=== PATIENT | female | born 1960 | race Caucasian/White ===

== ENCOUNTER 2019-07-15 10:30 | Emergency (ER) | payer MEDICARE, OTHER ==
[~2019-07-15] VITALS: Ht 165.1 cm; Wt 61.2 kg
--- OUTSIDE RECORDS SUMMARY | ~2019-07-15 | XMS | Clinical Summary ---
Demographics + + + | Address | [address] | | | [place] [address] | + + + | Home Phone | | + + + | Preferred Language | Unknown | + + + | Marital Status | Legally | + + + | Voodoo Affiliation | [id number] | + + + | Race | Unknown | + + + | Ethnic Group | Unknown | + + + Author + + + | Author | [facility] (Historical as of | | | 03-14-19) | + + + | Organization | [facility] (Historical as of | | | 03-14-19) | + + + | Address | Unknown | + + + | Phone | Unavailable | + + + Support + + + + + | Name | Relationship | Address | Phone | + + + + + | Shanna Salinas | ECON | [address] | | | | | [place] | | | | | [address] | | + + + + + | Kurtis Abbasi | ECON | Unknown | | + + + + + Care Team Providers + +------+ + | Care Deputy Court Name | Role | Phone | + +------+ + | Bridger Esposito MD | PP | | + +------+ + Allergies + + + + + + | Active Allergy | Reactions | Severity | Noted | Comments | | | | | Date | | + + + + + + | Morphine | Itching | Medium | 10/05/19 | IV Morphine only. | | | | | 18 | PO OK | + + + + + + Current Medications + + +-------+---------+------+------+-------+ | Prescription | Sig. | Disp. | Refills | Star | End | Statu | | | | | | t | Date | s | | | | | | Date | | | + + +-------+---------+------+------+-------+ | zolpidem (AMBIEN) | Take 10 mg by mouth | | | | | Activ | | 10 MG tablet | daily. | | | | | e | + + +-------+---------+------+------+-------+ | FLUOXETINE HCL PO | Take 20 mg by mouth. | | | | | Activ | | | 1 tab QAM and 2 | | | | | e | | | tabs QPM | | | | | | + + +-------+---------+------+------+-------+ | gabapentin | Take 100 mg by | | | | | Activ | | (NEURONTIN) 100 MG | mouth. Conventional | | | | | e | | capsule | as directed 2 caps | | | | | | | | QAM | | | | | | + + +-------+---------+------+------+-------+ | gabapentin | Take 400 mg by mouth | | | | | Activ | | (NEURONTIN) 400 MG | 3 (three) times | | | | | e | | capsule | daily. | | | | | | + + +-------+---------+------+------+-------+ | sumatriptan | Take 100 mg by mouth | | | | | Activ | | (IMITREX) 100 MG | daily as needed for | | | | | e | | tabletIndications: | Migraine. Once a | | | | | | | Headache | day prn headache | | | | | | + + +-------+---------+------+------+-------+ | LEVOTHYROXINE | Take 125 mcg by | | | | | Activ | | SODIUM PO | mouth. As directed 5 | | | | | e | | | days a week | | | | | | + + +-------+---------+------+------+-------+ | LEVOTHYROXINE | Take 125 mcg by | | | | | Activ | | SODIUM PO | mouth. As directed 2 | | | | | e | | | days a week | | | | | | + + +-------+---------+------+------+-------+ | LIOTHYRONINE | Take 25 mcg by mouth | | | | | Activ | | SODIUM PO | daily. | | | | | e | + + +-------+---------+------+------+-------+ | MORPHINE SULFATE | Take 30 mg by mouth | | | | | Activ | | ER PO | 2 (two) times daily. | | | | | e | + + +-------+---------+------+------+-------+ | MORPHINE SULFATE | Take 15 mg by mouth | | | | | Activ | | ER PO | 2 (two) times daily. | | | | | e | + + +-------+---------+------+------+-------+ | | Take by mouth. | | | | | Activ | | oxyCODONE-acetaminop | | | | | | e | | hen (PERCOCET) | | | | | | | | 10-325 MG per tablet | | | | | | | + + +-------+---------+------+------+-------+ | PROMETHAZINE HCL | Take 25 mg by mouth | | | | | Activ | | POIndications: | every 6 (six) hours | | | | | e | | nausea | as needed. | | | | | | + + +-------+---------+------+------+-------+ Active Problems + + + | Problem | Noted Date | + + + | Incidental pulmonary nodule, greater than or equal to 8mm | 05/16/2017 | + + + | Personal history of tobacco use, presenting hazards to health | 05/16/2017 | + + + | History of breast cancer | 05/16/2017 | + + + Family History + + +------+ + | Medical History | Relation | Name | Comments | + + +------+ + | Cancer | Father | | lung | + + +------+ + | Cancer | Mother | | Breast | + + +------+ + + +------+ + + | Relation | Name | Status | Comments | + +------+ + + | Father | | | | + +------+ + + | Mother | | | | + +------+ + + Social History + +-------+ +--------+------+ | Tobacco Use | Types | Packs/Day | Years | Date | | | | | Used | | + +-------+ +--------+------+ | Current Every Day | | 0.5 | 30 | | | Smoker | | | | | + +-------+ +--------+------+ + +---+---+---+ | Smokeless Tobacco: | | | | | Never Used | | | | + +---+---+---+ + + +---------+ + | Alcohol Use | Drinks/We | oz/Week | Comments | | | ek | | | + + +---------+ + | No | | | | + + +---------+ + + + + | Sex Assigned at | Date Recorded | | | | + + + | Not on file | | + + + Last Filed Vital Signs + + + + | Vital Sign | Reading | Time Taken | + + + + | Blood Pressure | 114/79 | 10/04/2017 3:18 PM PST | + + + + | Pulse | 70 | 10/04/2017 3:18 PM PST | + + + + | Temperature | 36.8 C (98.3 F) | 06/11/2017 4:33 PM PST | + + + + | Respiratory Rate | 12 | 06/11/2017 4:33 PM PST | + + + + | Oxygen Saturation | 99% | 10/04/2017 3:18 PM PST | + + + + | Inhaled Oxygen | - | - | | Concentration | | | + + + + | Weight | 68 kg (150 lb) | 10/04/2017 3:18 PM PST | + + + + | Height | 165.1 cm (5' 5") | 06/11/2017 4:33 PM PST | + + + + | Body Mass Index | 24.96 | 10/04/2017 3:18 PM PST | + + + + Plan of Treatment Not on file Results Not on filefrom Last 3 Months Insurance + +--------+ +------+-------+ + | Payer | Benefi | Subscriber | Type | Phone | Address | | | t Plan | ID | | | | | | / | | | | | | | Group | | | | | + +--------+ +------+-------+ + | MEDICARE | MEDICA | [id number] | | | [address] | | | RE | | | | [place] [address] | | | IP-OP | | | | | + +--------+ +------+-------+ + | MEDICAID | MEDICA | [id number] | | | [address] | | | ID | | | | [place], [place] | | | [place] | | | | [address] | + +--------+ +------+-------+ + + +--------+ +--------+ + + | Guarantor Name | Accoun | Relation to | Date | Phone | Billing Address | | | t Type | Patient | of | | | | | | | | | | + +--------+ +--------+ + + | DIONY SALINAS | Person | Self [birth year] Home: | [address] | | | [place] | | 1960 | [phone] | [place] [address] | | | fernando | | | [phone] | | + +--------+ +--------+ + +
--- OUTSIDE RECORDS SUMMARY | ~2019-07-15 | XMS | Encounter Summary ---
Demographics + + + | Address | [address] | | | [place] [address] | + + + | Home Phone | | + + + | Preferred Language | Unknown | + + + | Marital Status | Single | + + + | Baptism Affiliation | Unknown | + + + | Race | Unknown | + + + | Ethnic Group | Unknown | + + + Author + + + | Author | [facility] | | | and Edana | + + + | Organization | [facility] | | | and Edana [...] Team Providers + +------+ + | Care Religious Healer Name | Role | Phone | + +------+ + | Bridger Esposito MD | PCP | | + +------+ + Reason for Referral Diagnostic/Screening (Routine) +--------+--------+ + + + + | Status | Reason | Specialty | Diagnoses / | Referred By | Referred To | | | | | Procedures | Contact | Contact | +--------+--------+ + + + + | Closed | | Radiology | Diagnoses | Eliazar, | c [facility] [address] | | | | | Incidental | Aaliyah | [address] | | | | | pulmonary | MD Cristina | [address] | | | | | nodule, | [address] | [address] | | | | | greater than | [address] | [place] | | | | | or equal to | [address] | [address] | | | | | 8mm | [place], [place] | Phone: | | | | | Procedures | [address] | [phone] | | | | | CT Chest wo | Phone: | Fax: | | | | | Contrast | [phone] | [phone] | | | | | | Fax: | | | | | | | [phone] | | +--------+--------+ + + + + [...] | greater than | [address] | [place], [place] | | | | | or equal to | [address] | [address] | | | | | 8mm | [place], [place] | Phone: | | | | | Procedures | [address] | [phone] | | | | | CT Chest wo | Phone: | Fax: | | | | | Contrast | [phone] | [phone] | | | | | | Fax: | | | | | | | [phone] | | +--------+--------+ + + + + Encounter Details +--------+ + + + + | Date | Type | Department | Care Team | Description | +--------+ + + + + | 06/30/ | Hospital | [facility] | Eliazar, | Incidental pulmonary | | 2019 | Encounter | [facility] [address] | Aaliyah Evans, | nodule, greater | | | | [address] | [address] | than or equal to 8mm | | | | [place] | [place], | | | | | [address] | [place] [address] | | | | | [phone] | [phone] | | | | | | | [...]
--- OUTSIDE RECORDS SUMMARY | ~2019-07-15 | XMS | Encounter Summary ---
Demographics + + + | Address | [address] | | | [place] [address] | + + + | Home Phone | | + + + | Preferred Language | Unknown | + + + | Marital Status | Single | + + + | Tenriism Affiliation | Unknown | + + + | Race | Unknown | + + + | Ethnic Group | Unknown | + + + Author + + + | Author | [facility] | | | and Edana | + + + | Organization | [facility] | | | and [...] Team Providers + +------+ + | Care Master Ocean Yacht Name | Role | Phone | + +------+ + | Gaetano Candelaria MD | PCP | | + +------+ + Encounter Details +--------+ + + + + | Date | Type | Department | Care Team | Description | +--------+ + + + + | 06/05/ | Hospital | [facility] | Conversion | Incidental pulmonary | | 2017 | Encounter | [facility] | Transaction, | nodule, greater | | | | MEDICINE 9[address] | Provider Unknown | than or equal to 8mm | | | | [address] | [phone] | | | | | [place] | | | | | | [address] | Aaliyah Perea | | | | | [phone] | MD Cristina [address] | | | | | | [address] | | | | | | [place] [address] | | | | | | [phone] | | | | | | | [...] | + +--------+ + + + | PET CT SKULL BASE TO | Routin | 06/05/2017 | | Results for this | | MID THIGH | e | 2:25 PM | | procedure are in the | | | | PST | | results section. | + +--------+ + + + documented in this encounter Results PET CT Skull Base To Mid Thigh (06/05/2017 2:25 PM PST) + + | Specimen | + + | | + + + + + | Impressions | Performed At | + + + | 1. The previously noted bilateral pulmonary findings appear | | | unchanged. These areas demonstrate minimal metabolic activity and | | | feces SUVmax from 1.7 to 3.0. Follow-up chest CT examination in 3 | | | months recommended. 2. No enlarged hypermetabolic lymph nodes noted | | | within the neck, chest, abdomen and pelvis. 3. Moderate pancreatic | | | ductal dilatation is of uncertain etiology. Recommend correlation | | | with MRI of the abdomen with and without contrast with pancreatic | | | protocol and with MRCP for definitive assessment. Electronically | | | signed by Alexandre Vinson MD on 06/05/2017 2:42 PM | | + + + + + + | Narrative | Performed At | + + + | DIONY SALINAS 1960 06/05/2017 2:[address] TUMOR | | | LOCALIZATION INITIAL - [place] HISTORY: Incidental pulmonary | | | nodule, greater than or equal to 8 mm. Breast cancer. COMPARISON: | | | Chest CT examination 05/31/2017. TECHNIQUE: Serum blood sugar 84 | | | mg/dL. Fused PET/CT scans were obtained from the skull base through | | | the thighs at 60 minutes post injection of 12.5 millicuries F18 | | | fluorodeoxyglucose. CT images are for localization only, and not for | | | diagnostic purposes. FINDINGS: Within the chest, -Cluster of | | | groundglass opacities in the right upper lung appear essentially | | | unchanged. SUVmax 1.7. -Elongated nodular opacity in the left lung | | | apex anteriorly on series 4, image 53 appears unchanged. SUVmax 2.3. | | | -Left anterior upper lobe demonstrates triangular peripheral opacity | | | on series 4, image 73, unchanged. SUVmax 3.0. -Left upper lobe nodule | | | measuring 3 mm in size on series 4, image 71 is too small to | | | accurately characterize and the current modality. No enlarged | | | hypermetabolic mediastinal or hilar lymph nodes seen. No cardiomegaly | | | or pericardial effusion. Aorta does not appear aneurysmal. Within | | | the neck, no enlarged hypermetabolic lymph nodes or foci of suspicious | | | metabolic hyperactivity seen. Within the abdomen and pelvis, no | | | definite evidence of a suspicious liver lesion seen within limits of | | | the modality. Hepatic steatosis. The pancreas demonstrates moderate | | | dilatation of the pancreatic duct, uncertain etiology. Spleen, adrenal | | | glands and kidneys appear unremarkable. No bowel obstruction or | | | ileus seen. No enlarged hypermetabolic lymph nodes identified. Aorta | | | does not appear aneurysmal. Within the osseous structures, no foci | | | of suspicious metabolic hyperactivity seen to suggest metastatic | | | disease. | | + + + + + | Procedure Note | + + | Marcus, Rad Conversion - 03/11/2019 10:55 PM PDT DIONY SALINAS 2:25 | | PMPET CT TUMOR LOCALIZATION INITIAL - [place] HISTORY: Incidental pulmonary nodule, | | greater than or equal to 8 mm. Breast cancer. COMPARISON: Chest CT examination | | 05/31/2017. TECHNIQUE:Serum blood sugar 84 mg/dL. Fused PET/CT scans were obtained from | | the skull base through the thighs at 60 minutes post injection of 12.5 millicuries F18 | | fluorodeoxyglucose. CT images are for localization only, and not for diagnostic | | purposes. FINDINGS:Within the chest,-Cluster of groundglass opacities in the right upper | | lung appear essentially unchanged. SUVmax 1.7.-Elongated nodular opacity in the left | | lung apex anteriorly on series 4, image 53 appears unchanged. SUVmax 2.3.-Left anterior | | upper lobe demonstrates triangular peripheral opacity on series 4, image 73, unchanged. | | SUVmax 3.0.-Left upper lobe nodule measuring 3 mm in size on series 4, image 71 is too | | small to accurately characterize and the current modality. No enlarged hypermetabolic | | mediastinal or hilar lymph nodes seen. No cardiomegaly or pericardial effusion. Aorta | | does not appear aneurysmal. Within the neck, no enlarged hypermetabolic lymph nodes or | | foci of suspicious metabolic hyperactivity seen. Within the abdomen and pelvis, no | | definite evidence of a suspicious liver lesion seen within limits of the modality. | | Hepatic steatosis. The pancreas demonstrates moderate dilatation of the pancreatic duct, | | uncertain etiology. Spleen, adrenal glands and kidneys appear unremarkable. No bowel | | obstruction or ileus seen. No enlarged hypermetabolic lymph nodes identified. Aorta does | | not appear aneurysmal. Within the osseous structures, no foci of suspicious metabolic | | hyperactivity seen to suggest metastatic disease. IMPRESSION: 1. The previously noted | | bilateral pulmonary findings appear unchanged. These areas demonstrate minimal metabolic | | activity and feces SUVmax from 1.7 to 3.0. Follow-up chest CT examination in 3 months | | recommended.2. No enlarged hypermetabolic lymph nodes noted within the neck, chest, | | abdomen and pelvis.3. Moderate pancreatic ductal dilatation is of uncertain etiology. | | Recommend correlation with MRI of the abdomen with and without contrast with pancreatic | | protocol and with MRCP for definitive assessment. | | | | | |IMPRESSION: | |1. The previously noted bilateral pulmonary findings appear unchanged. These areas demonst rate minimal metabolic activity and feces SUVmax from 1.7 to 3.0. Follow-up chest CT examina tion in 3 months recommended. | |2. No enlarged hypermetabolic lymph nodes noted within the neck, chest, abdomen and pelvis . | |3. Moderate pancreatic ductal dilatation is of uncertain etiology. Recommend correlation w ith MRI of the abdomen with and without contrast with pancreatic protocol and with MRCP for definitive assessment. | | | | | + + documented in this encounter Visit Diagnoses + + | Diagnosis | + + | Incidental pulmonary nodule, greater than or equal to 8mm Solitary pulmonary nodule | + + documented in this encounter"
--- OUTSIDE RECORDS SUMMARY | ~2019-07-15 | XMS | Encounter Summary ---
Demographics + + + | Address | [address] | | | [place] [address] | + + + | Home Phone | | + + + | Preferred Language | Unknown | + + + | Marital Status | Single | + + + | Denominational Affiliation | Unknown | + + + | Race | Unknown | + + + | Ethnic Group | Unknown | + + + Author + + + | Author | [facility] | | | and Edana | + + + | Organization | [facility] | | | and Edana [...] Team Providers + +------+ + | Care Senior Systems Software Engineer Name | Role | Phone | + +------+ + | Gaetano Candelaria MD | PCP | | + +------+ + Encounter Details +--------+ + + + + | Date | Type | Department | Care Team | Description | +--------+ + + + + | 05/31/ | Hospital | [facility] | Conversion | Incidental pulmonary | | 2017 | Encounter | [facility] [address] | Transaction, | nodule, greater | | | | DM[address] | Provider Unknown | than or equal to 8mm | | | | [place] | [phone] | | | | | [address] | | | | | | [phone] | Aaliyah Perea | | | | | | MD Cristina [address] | | | | | | [address] | | | | | | [place] [address] | | | | | | [phone] | | | | | | | [...] CT CHEST WO CONTRAST | Routin | 05/31/2017 | | Results for this | | | e | 5:04 PM | | procedure are in the | | | | PDT | | results section. | + +--------+ + + + documented in this encounter Results CT Chest wo Contrast (05/31/2017 5:04 PM PDT) + + | Specimen | + + | | + + + + + | Impressions | Performed At | + + + | 1. Cluster of nodular groundglass opacities in the right upper | | | lobe. These are suspected to be inflammatory. 2. Combination of | | | elongated nodular opacity, groundglass opacities and linear opacities | | | in the left upper lobe and a triangular opacity anteriorly in the left | | | upper lobe. These are suspected to represent areas of postradiation | | | changes. 3. Left upper lobe nodule measuring 3 mm in size. 4. | | | Recommend follow-up chest CT examination in 3 months for the | | | above-mentioned findings. | | + + + + + + | Narrative | Performed At | + + + | DIONY [facility] CT CHEST WO CONTRAST HISTORY: Incidental | | | pulmonary nodule, greater than or equal to 8 mm. TECHNIQUE: CT | | | examination of the chest was performed without contrast. CT was | | | performed with automated exposure control and adjustment of the mA | | | according to patient size. COMPARISON: None. FINDINGS: Lack | | | of intravenous contrast diminishes sensitivity, especially for | | | assessment of lymphadenopathy, upper abdominal and vascular | | | structures. Lungs: -In the right upper lobe, there is a cluster | | | of 3-4 nodular groundglass opacities seen from series 4, image 51 | | | through series 4, image 67. The largest is seen on series 4, image 51 | | | measuring 7 mm in size. -The left lung apex demonstrates a | | | combination of elongated nodular opacity seen on series 4, image 35 | | | measuring 1.8 cm in length and 0.9 cm in thickness, and with further | | | groundglass components inferiorly on series 4, image 41. There appear | | | to be some reticular opacities. -The left anterior upper lobe | | | demonstrates a triangular peripheral pleural-based opacity on series | | | 4, image 91 measuring approximately 2.7 cm x 1.2 cm in size. -There | | | is a left upper lobe nodule seen in this area on series 4, image 85 | | | measuring 3 mm in size. Mild emphysematous changes seen involving | | | the upper lungs. Pleura: No pleural effusion seen. Aorta: Does | | | not appear aneurysmal Pulmonary arteries: No definite enlargement | | | seen. Lymph nodes: No enlarged mediastinal or hilar lymph nodes | | | by CT size criteria seen. Heart: No cardiomegaly or pericardial | | | effusion seen. Esophagus: Does not appear dilated. Visualized | | | thyroid: Appears unremarkable. Visualized abdominal organs: | | | Hepatic steatosis. Osseous structures: No acute or destructive | | | osseous process seen. | | + + + + + | Procedure Note | + + | Marcus, Rad Conversion - 03/11/2019 10:55 PM PDT [facility] | | HISTORY:Incidental pulmonary nodule, greater than or equal to 8 mm. TECHNIQUE:CT | | examination of the chest was performed without contrast. CT was performed with automated | | exposure control and adjustment of the mA according to patient size. COMPARISON:None. | | FINDINGS: Lack of intravenous contrast diminishes sensitivity, especially for assessment | | of lymphadenopathy, upper abdominal and vascular structures. Lungs:-In the right upper | | lobe, there is a cluster of 3-4 nodular groundglass opacities seen from series 4, image | | 51 through series 4, image 67. The largest is seen on series 4, image 51 measuring 7 mm | | in size.-The left lung apex demonstrates a combination of elongated nodular opacity seen | | on series 4, image 35 measuring 1.8 cm in length and 0.9 cm in thickness, and with | | further groundglass components inferiorly on series 4, image 41. There appear to be some | | reticular opacities.-The left anterior upper lobe demonstrates a triangular peripheral | | pleural-based opacity on series 4, image 91 measuring approximately 2.7 cm x 1.2 cm in | | size.-There is a left upper lobe nodule seen in this area on series 4, image 85 | | measuring 3 mm in size. Mild emphysematous changes seen involving the upper lungs. | | Pleura: No pleural effusion seen. Aorta: Does not appear aneurysmal Pulmonary arteries: | | No definite enlargement seen. Lymph nodes: No enlarged mediastinal or hilar lymph nodes | | by CT size criteria seen. Heart: No cardiomegaly or pericardial effusion seen. | | Esophagus: Does not appear dilated. Visualized thyroid: Appears unremarkable. Visualized | | abdominal organs: Hepatic steatosis. Osseous structures: No acute or destructive | | osseous process seen. IMPRESSION: 1. Cluster of nodular groundglass opacities in the | | right upper lobe. These are suspected to be inflammatory.2. Combination of elongated | | nodular opacity, groundglass opacities and linear opacities in the left upper lobe and a | | triangular opacity anteriorly in the left upper lobe. These are suspected to represent | | areas of postradiation changes.3. Left upper lobe nodule measuring 3 mm in size.4. | | Recommend follow-up chest CT examination in 3 months for the above-mentioned findings. | | | | | |Pulmonary arteries: No definite enlargement seen. | | | |Lymph nodes: No enlarged mediastinal or hilar lymph nodes by CT size criteria seen. | | | |Heart: No cardiomegaly or pericardial effusion seen. | | | |Esophagus: Does not appear dilated. | | | |Visualized thyroid: Appears unremarkable. | | | |Visualized abdominal organs: Hepatic steatosis. | | | |Osseous structures: No acute or destructive osseous process seen. | | | | | |IMPRESSION: | |1. Cluster of nodular groundglass opacities in the right upper lobe. These are suspected t o be inflammatory. | |2. Combination of elongated nodular opacity, groundglass opacities and linear opacities in the left upper lobe and a triangular opacity anteriorly in the left upper lobe. These are s uspected to represent areas of postradiation changes. | |3. Left upper lobe nodule measuring 3 mm in size. | |4. Recommend follow-up chest CT examination in 3 months for the above-mentioned findings. | | | | | + + documented in this encounter Visit Diagnoses + + | Diagnosis | + + | Incidental pulmonary nodule, greater than or equal to 8mm Solitary pulmonary nodule | + + documented in this encounter"
--- OUTSIDE RECORDS SUMMARY | ~2019-07-15 | XMS | Clinical Summary ---
Demographics + + + | Address | [address] | | | [place] [address] | + + + | Home Phone | | + + + | Preferred Language | Unknown | + + + | Marital Status | Legally | + + + | Buddhism Affiliation | 1013 | + + + | Race | Unknown | + + + | Ethnic Group | Unknown | + + + Author + + + | Author | [facility] (Historical as of | | | 03-14-19) | + + + | Organization | [facility] (Historical as of | | | 03-14-19) [...] [place] | | | | | [address] | | + + + + + | Kurtis Abbasi | ECON | Unknown | | + + + + + Care Team Providers + +------+ + | Care Hospice Team Lead Name | Role | Phone | + [...] +------+-------+ + | MEDICARE | MEDICA | [id number] | | | [address] | | | RE | | | | [place] [address] | | | IP-OP | | | | | + +--------+ +------+-------+ + | MEDICAID | MEDICA | [id number] | | | [address] | | | ID | | | | [place], [place] | | | [place] | | | | [address] | + +--------+ +------+-------+ + + +--------+ +--------+ + + | Guarantor Name | Accoun | Relation to | Date | Phone | Billing Address | | | t Type | Patient | of | | | | | | | | | | + +--------+ +--------+ + + | DIONY SALINAS | Person | Self | [birth year] | Home: | [address] | | | [place] | | 1960 | [phone] | [place] [address] | | | [place] | | | [phone] | | + +--------+ +--------+ + +
--- OUTSIDE RECORDS SUMMARY | ~2019-07-15 | XMS | Clinical Summary ---
Demographics + + + | Address | [address] | | | [place] [address] | + + + | Home Phone | | + + + | Preferred Language | Unknown | + + + | Marital Status | Single | + + + | Oriental Orthodox Affiliation | Unknown | + + + | Race | Unknown | + + + | Ethnic Group | Unknown | + + + Author + + + | Author | [facility] | | | and Edana | + + + | Organization | [facility] | | | and Edana | [...] Team Providers + +------+ + | Care Delivery Driver Name | Role | Phone | + +------+ + | Bridger Esposito MD | PCP | | + +------+ + Allergies + [...] | + + + + + + Medications + + + +---------+------+------+-------+ | Medication | Sig | Dispensed | Refills | Star | End | Statu | | | | | | t | Date | s | | | | | | Date | | | + + + +---------+------+------+-------+ | gabapentin | Take 400 mg by mouth | | 0 | | | Activ | | (NEURONTIN) 400 mg | 3 times daily. | | | | | e | | capsule | | | | | | | + + + +---------+------+------+-------+ | | Take by mouth. | | 0 | | | Activ | | oxyCODONE-acetaminop | | | | | | e | | hen (PERCOCET) | | | | | | | | 10-325 mg per tablet | | | | | | | + + + +---------+------+------+-------+ | SUMAtriptan | Take 100 mg by mouth | | 0 | | | Activ | | (IMITREX) 100 mg | Daily as needed for | | | | | e | | tablet | Migraine. Once a | | | | | | | | day prn headache | | | | | | + + + +---------+------+------+-------+ | FLUOXETINE HCL PO | Take 20 mg by mouth. | | 0 | | | Activ | | | 1 tab QAM and 2 | | | | | e | | | tabs QPM | | | | | | + + + +---------+------+------+-------+ | LEVOTHYROXINE | Take 125 mcg by | | 0 | | | Activ | | SODIUM PO | mouth. As directed 5 | | | | | e | | | days a week | | | | | | + + + +---------+------+------+-------+ | MORPHINE SULFATE | Take 15 mg by mouth | | 0 | | | Activ | | ER PO | 3 times daily. | | | | | e | + + + +---------+------+------+-------+ | PROMETHAZINE HCL | Take 25 mg by mouth | | 0 | | | Activ | | PO | every 6 hours as | | | | | e | | | needed. | | | | | | + + + +---------+------+------+-------+ | gabapentin | Take 100 mg by | | 0 | | 12/0 | Disco | | (NEURONTIN) 100 mg | mouth. Conventional | | | | 3/20 | ntinu | | capsule | as directed 2 caps | | | | 19 | ed | | | QAM | | | | | (Ther | | | | | | | | apy | | | | | | | | compl | | | | | | | | eted) | + + + +---------+------+------+-------+ | zolpidem (AMBIEN) | Take 10 mg by mouth | | 0 | | 12/0 | Disco | | 10 mg tablet | Daily. | | | | 3/20 | ntinu | | | | | | | 19 | ed | | | | | | | | (Ther | | | | | | | | apy | | | | | | | | compl | | | | | | | | eted) | + + + +---------+------+------+-------+ | LEVOTHYROXINE | Take 125 mcg by | | 0 | | 12/0 | Disco | | SODIUM PO | mouth. As directed 2 | | | | 3/20 | ntinu | | | days a week | | | | 19 | ed | | | | | | | | (Ther | | | | | | | | apy | | | | | | | | compl | | | | | | | | eted) | + + + +---------+------+------+-------+ | LIOTHYRONINE | Take 25 mcg by mouth | | 0 | | 12/0 | Disco | | SODIUM PO | Daily. | | | | 3/20 | ntinu | | | | | | | 19 | ed | | | | | | | | (Ther | | | | | | | | apy | | | | | | | | compl | | | | | | | | eted) | + + + +---------+------+------+-------+ | MORPHINE SULFATE | Take 30 mg by mouth | | 0 | | 12/0 | Disco | | ER PO | 2 times daily. | | | | 3/20 | ntinu | | | | | | | 19 | ed | | | | | | | | (Ther | | | | | | | | apy | | | | | | | | compl | | | | | | | | eted) | + + + +---------+------+------+-------+ Active Problems + + + | Problem | Noted Date | + + + | History of breast cancer | 05/16/2017 | + + + | Incidental pulmonary nodule, greater than or equal to 8mm | 05/16/2017 | + + + | Personal history of tobacco use, presenting hazards to health | 05/16/2017 | + + + | Bilateral carpal tunnel syndrome - moderate on the rigth and mild | 04/05/2014 | | on the left | | + + + Encounters +--------+ + + + + | Date | Type | Specialty | Care Team | Description | +--------+ + + + + | 06/30/ | Office | Pulmonology | Eliazar, | Incidental pulmonary | | 2019 | Visit | | Aaliyah Evans, | nodule, greater | | | | | MD | than or equal to 8mm | | | | | | (Primary Dx); | | | | | | History of breast | | | | | | cancer; Personal | | | | | | history of tobacco | | | | | | use, presenting | | | | | | hazards to health | +--------+ + + + + | 06/30/ | Hospital | Radiology | Eliazar, | Incidental pulmonary | | 2018 | Encounter | | Aaliyah Evans, | nodule, greater | | | | | MD | than or equal to 8mm | +--------+ + + + + from Last 3 Months Immunizations + + + + | Name | Administration Dates | Next Due | + + + + | INFLUENZA PF 4Y OR | 06/19/2019 | | | >,QUAD DERIVED FROM | | | | TISS-CULT | | | + + + + Family History + + [...] | | + +------+ + + | Father [...] recent travel history available. | + + Last Filed Vital Signs + [...] | Respiratory Rate | 12 | 06/11/2017 4:37 PM | | | [...] | 165.1 cm (5' 5") | 06/11/2017 4:37 PM | | | | | PST | | + + + + + | Body Mass Index | 22.63 | 06/11/2017 4:37 PM | | | | | PST | | + + + + + Plan of Treatment + + + + + | Health Maintenance | Due Date | Last Done | Comments | + + + + + | Hepatitis C | | | | | Screening | 2 | | | + + + + + | Vaccine: | | | | | Pneumococcal 19-64 | 8 | | | | (1 of 1 - PPSV23) | | | | + + + + + | Vaccine: | | | | | Dtap/Tdap/Td (1 - | 1 | | | | Tdap) | | | | + + + + + | Cervical Cancer | | | | | Screening (Pap) | 2 | | | + + + + + | Colorectal Cancer | | | | | Screening | 2 | | | | (Colonoscopy) | | | | + + + + + | Vaccine: Zoster (1 | | | | | of 2) | 2 | | | + + + + + | Breast Cancer | | | | | Screening | 7 | | | + + + + + | Adult Annual | | | | | Wellness Visit | 9 | | | + + + + + | Vaccine: Influenza | Completed | 06/19/2019 | | + + + + + Procedures + +--------+ + + + | [...] | | + +--------+ + + + from Last [address] Chest wo Contrast (06/30/2019 2:33 [...] | | | + +---------+ + + from Last 3 Months Insurance + +--------+ +--------+ +---------+--------+ | Payer | Benefi | Subscriber | Effect | Phone | Address | Type | | | t Plan | ID | elvi | | | | | | / | | Dates | | | | | | Group | | | | | | + +--------+ +--------+ +---------+--------+ | MEDICARE | MEDICA | [id number] | 09/27/19 | [phone] | | Medica | | | RE | | 09-Pre | 5 | | re | | | PART A | | sent | | | | | | AND B | | | | | | + +--------+ +--------+ +---------+--------+ | [place]ID [place] | MEDICA | [id number] | 06/16/ | [phone] | | Medica | | | ID | | 2019-P | 2 | | id | | | [place] | | resent | | | | + +--------+ +--------+ +---------+--------+ + +--------+ +--------+ + + | Guarantor Name | Accoun | Relation to | Date | Phone | Billing Address | | | t Type | Patient | of | | | | | | | | | | + +--------+ +--------+ + + | Doiny Salinas | Person | Self | [birth year] | | [address] | | | al/Fam | | 1961 | [phone] | [place] [address] | | | [place]ernando | | | 6 (Home) | | + +--------+ +--------+ + + | Diony Salinas | Person | Self | [birth year] | | [address] | | | al/Fam | | 1961 | [phone] | [place] [address] | | | fernando | | | 6 (Home) | | + +--------+ +--------+ + + Advance Directives + + + + + | Type | Date Recorded | Patient | Explanation | | | | Event Planning Intern | | + + + + + | Power of | | | | | Classification Inspector | | | | + + + + + | Advance | | | | | Directive | | | | + + + + +
--- OUTSIDE RECORDS SUMMARY | ~2019-07-15 | XMS | Encounter Summary ---
Demographics + + + | Address | [address] | | | [place] [address] | + + + | Home Phone | | + + + | Preferred Language | Unknown | + + + | Marital Status | Single | + + + | Yarsanism Affiliation | Unknown | + + + | Race | Unknown | + + + | Ethnic Group | Unknown | + + + Author + + + | Author | [facility] | | | and Edana | + + + | Organization | [facility] | | | and Edana [...] Team Providers + +------+ + | Care Oracle Database Consultant Name | Role | Phone | + +------+ + | Bridger Esposito MD | PCP | | + +------+ + Reason for Referral Diagnostic/Screening (Routine) + +--------+ + + + + | Status | Reason | Specialty | Diagnoses / | Referred By | Referred To | | | | | Procedures | Contact | Contact | + +--------+ + + + + | Authorized | | | Diagnoses | El[facility]ar | [facility] | | | | | Incidental | Aaliyah | [facility] | | | | | pulmonary | MD Cristina | SLEEP | | | | | nodule, | [address] | DISORDERS LAB | | | | | greater than | DMITRIY FERNANDO | [address] | | | | | or equal to | EUNICE Monte[address] | [address] | | | | | 8mm | [place] | [place], [place] | | | | | Procedures | [address] | [address] | | | | | Pulmonary | Phone: | Phone: | | | | | function | [phone] | [phone] | | | | | test | Fax: | Fax: | | | | | | [phone] | [phone] | + +--------+ + + + + Encounter Details +--------+---------+ + + + | Date | Type | Department | Care Team | Description | +--------+---------+ + + + | 06/30/ | Office | [facility] | Eliazar, | Incidental pulmonary | | 2019 | Visit | PULMONOLOGY [address] | Aaliyah Evans, | nodule, greater | | | | [address] | MD [address] | than or equal to 8mm | | | | [place] | [place], | (Primary Dx); | | | | [address] | [place] [address] | History of breast | | | | [phone] | [phone] | cancer; Personal | | | | [...] PSTFormatting of this note might be d ifferent from the original. Subjective Patient ID: Diony [...] only fol lows with her Oncologist in [facility] every year. She has an occasional cough productive of clear sputum. She denies hemoptysis. She has no fevers, night sweats, chills or weight loss. She has dyspnea on exertion, but only when she is hurrying or doing more rigorous chores like va [email or web address]. She has chronic pains and has been [...] but is active at work. 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 ACTIVITIES OF DAILY LIVING: Independent without difficulty. [...] were also smokers. 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 Immanuel monteiro was raised in [place], lived in [facility] for 2 years, and previous to that, was in [facility] and for 29 years. She has no animals at home. The following elements of the patient's history were reviewed and updated as appropriate. T naylay are available elsewhere in the patient record. [...] still is in remission. Her Oncologist in [place] has retired, and so I have encouraged [...] Perea MD Pulmonary and Critical Care Medicine [facility] [address] , [place] [address] documente d in this encounter Plan of [...]
--- OUTSIDE RECORDS SUMMARY | ~2019-07-15 | XMS | Encounter Summary ---
Demographics + + + | Address | [address] | | | [place] [address] | + + + | Home Phone [...] | Organization | [facility] | | | and Edana [...] Team Providers + +------+ + | Care Management Nurse Rn Name | Role | Phone | + [...] Radiology | Diagnoses | Eliazar, | c [facility] [address] | | | | | Incidental | Aaliyah | [address] | | | | | pulmonary | MD Cristina | [address] | | | | | nodule, | [address] | [address] | | | | | greater than | DMITRIY FERNANDO | [place] | | | | | or equal to | [address] | [address] | | | | | 8mm | [place], [place] | Phone: | | | | | Procedures | [address] | [phone] | | | | | CT Chest wo | Phone: | Fax: | | | | | Contrast | [phone] | [phone] | | | | | | Fax: | | | | | | | [phone] | | +--------+--------+ + + + + [...] | greater than | DMITRIY FERNANDO | [place], [place] | | | | | or equal to | [address] | [address] | | | | | 8mm | [place], [place] | Phone: | | | | | Procedures | [address] | [phone] | | | | | CT Chest wo | Phone: | Fax: | | | | | Contrast | [phone] | [phone] | | | | | | Fax: | | | | | | | [phone] | | +--------+--------+ + + + + Encounter Details +--------+ + + + + | Date | Type | Department | Care Team | Description | +--------+ + + + + | 06/30/ | Hospital | [facility] | Eliazar, | Incidental pulmonary | | 2019 | Encounter | [facility] [address] | Aaliyah Evans, | nodule, greater | | | | DMITRIY FERNANDO [address] | [address] | than or equal to 8mm | | | | [place] | [place], | | | | | [address] | [place] [address] | | | | | [phone] | [phone] | | | | | | | [...]
--- OUTSIDE RECORDS SUMMARY | ~2019-07-15 | XMS | Encounter Summary ---
Demographics + + + | Address | [address] | | | [place] [address] | + + + | Home Phone | | + + + | Preferred Language | Unknown | + + + | Marital Status | Single | + + + | Jewish Affiliation | Unknown | + + + | Race | Unknown | + + + | Ethnic Group | Unknown | + + + Author + + + | Author | [facility] | | | and Edana | + + + | Organization | [facility] | | | and Edana [...] Team Providers + +------+ + | Care Jewelry Making Instructor Name | Role | Phone | + +------+ + | Gaetano Candelaria MD | PCP | | + +------+ + Encounter Details +--------+ + + + + | Date | Type | Department | Care Team | Description | +--------+ + + + + | 02/26/ | Hospital | [facility] | Conversion | Incidental pulmonary | | 2018 | Encounter | [facility] [address] | Transaction, | nodule, greater | | | | DMITRIY [address] | Provider Unknown | than or equal to 8mm | | | | [place] | [phone] | | | | | [address] | | | | | | [phone] | Aaliyah Perea | | | | | | MD Cristina [address] | | | | | | [address] | | | | | | [place] [address] | | | | | | [phone] | | | | | | | [...] Conversion - 03/11/2019 7:03 AM PDT [id number] | | FemaleCT CHEST WO CONTRAST02/26/2018 [...]
--- OUTSIDE RECORDS SUMMARY | ~2019-07-15 | XMS | Encounter Summary ---
Demographics + + + | Address | [address] | | | [place] [address] | + + + | Home Phone | | + + + | Preferred Language | Unknown | + + + | Marital Status | Single | + + + | Mandaeism Affiliation | Unknown | + + + | Race | Unknown | + + + | Ethnic Group | Unknown | + + + Author + + + | Author | [facility] | | | and Edana | + + + | Organization | [facility] | | | and Edana [...] Team Providers + +------+ + | Care Dianeticist Name | Role | Phone | + [...] or equal to | [place] | [address] | | | | | 8mm | [place] | Phone: | | | | | Procedures | [address] | [phone] | | | | | CT Chest wo | Phone: | Fax: | | | | | Contrast | [phone] | [phone] | | | | | | Fax: | | | | | | | [phone] | | +--------+--------+ + + + + Reason for Visit +--------+ + | Reason | Comments | +--------+ + | Other | | +--------+ + Encounter Details +--------+ + + + + | Date | Type | Department | Care Team | Description | +--------+ + + + + | 03/25/ | Telephone | [facility] | Krystin Tracy RN | Other | | 2018 | | PULMONOLOGY 1100 | | | | | | [place] [place] | | | | | | [facility] [place] | | | | | | [address] | | | | | | [phone] | | | +--------+ + + + [...]
--- OUTSIDE RECORDS SUMMARY | ~2019-07-15 | XMS | Encounter Summary ---
Demographics + + + | Address | [address] | | | [place] [address] | + + + | Home Phone | | + + + | Preferred Language | Unknown | + + + | Marital Status | Single | + + + | Congregational Affiliation | Unknown | + + + | Race | Unknown | + + + | Ethnic Group | Unknown | + + + Author + + + | Author | [facility] | | | and Edana | + + + | Organization | [facility] | | | and Edana [...] Team Providers + +------+ + | Care Sourcing Coordinator Name | Role | Phone | + [...] or equal to | [place] E | [address] | | | | | 8mm | [place] | Phone: | | | | | Procedures | [address] | [phone] | | | | | CT Chest wo | Phone: | Fax: | | | | | Contrast | [phone] | [phone] | | | | | | Fax: | | | | | | | [phone] | | +--------+--------+ + + + + Reason for Visit +--------+ + | Reason | Comments | +--------+ + | Other | | +--------+ + Encounter Details +--------+ + + + + | Date | Type | Department | Care Team | Description | +--------+ + + + + | 03/25/ | Telephone | [facility] | Krystin Tracy RN | Other | | 2018 | | PULMONOLOGY 1100 | | | | | | [address] | | | | | | [facility] [place] | | | | | | [address] | | | | | | [phone] | | | +--------+ + + + [...]
--- OUTSIDE RECORDS SUMMARY | ~2019-07-15 | XMS | Encounter Summary ---
Demographics + + + | Address | [address] | | | [place] [address] | + + + | Home Phone | | + + + | Preferred Language | Unknown | + + + | Marital Status | Single | + + + | Gnosticist Affiliation | Unknown | + + + | Race | Unknown | + + + | Ethnic Group | Unknown | + + + Author + + + | Author | [facility] | | | and Edana | + + + | Organization | [facility] | | | and Edana [...] Team Providers + +------+ + | Care Bar Turner Name | Role | Phone | + [...] + + | 03/24/ | Telephone | [facility] | Eliazar, | Other (Schedule | | 2019 | | PULMONOLOGY 1100 | Aaliyah Evans, | follow up & order | | | | [address] | MD [address] | [address] | | | | [place], [place] | [place], | | | | | [address] | [place] [address] | | | | | [phone] | [phone] | | | | | | | [...]
--- OUTSIDE RECORDS SUMMARY | ~2019-07-15 | XMS | Encounter Summary ---
Demographics + + + | Address | [address] | | | [place] [address] | + + + | Home Phone | | + + + | Preferred Language | Unknown | + + + | Marital Status | Single | + + + | Caodaism Affiliation | Unknown | + + + | Race | Unknown | + + + | Ethnic Group | Unknown | + + + Author + + + | Author | [facility] | | | and Edana | + + + | Organization | [facility] | | [...] Team Providers + +------+ + | Care Die Cut Operator Name | Role | Phone | + +------+ + | Gaetano Candelaria MD | PCP | | + +------+ + Encounter Details +--------+ + + + + | Date | Type | Department | Care Team | Description | +--------+ + + + + | 02/23/ | Orders Only | [facility] | Provider, | | | 2018 | | SYSTEM GENERIC OP | MD [address]eth [address] | | | | | [address]VERSION [address] | Elizabeth JANSEN | | | | | [address] [place], [place] | [place] [address] | | | | | [address] | | | | | | [phone] | | | +--------+ + + + [...]
--- OUTSIDE RECORDS SUMMARY | ~2019-07-15 | XMS | Encounter Summary ---
Demographics + + + | Address | [address] | | | [place] [address] | + + + | Home Phone | | + + + | Preferred Language | Unknown | + + + | Marital Status | Single | + + + | Catholic Affiliation | Unknown | + + + | Race | Unknown | + + + | Ethnic Group | Unknown | + + + Author + + + | Author | [facility] | | | and Edana | + + + | Organization | [facility] | | | and [...] Team Providers + +------+ + | Care Grease Maker Name | Role | Phone | + +------+ + | Gaetano Candelaria MD | PCP | | + +------+ + Encounter Details +--------+ + + + + | Date | Type | Department | Care Team | Description | +--------+ + + + + | 06/05/ | Hospital | [facility] | Conversion | Incidental pulmonary | | 2017 | Encounter | [facility] N[facility] | Transaction, | nodule, greater | | | | MEDICINE 945 | Provider Unknown | than or equal to 8mm | | | | [address] | [phone] | | | | | [place] | | | | | | [address] | Aaliyah Perea | | | | | [phone] | MD [address]ina [address] | | | | | | [address] | | | | | | [place] [address] | | | | | | [phone] | | | | | | | [...]
--- OUTSIDE RECORDS SUMMARY | ~2019-07-15 | XMS | Encounter Summary ---
Demographics + + + | Address | [address] | | | [place] [address] | + + + | Home Phone | | + + + | Preferred Language | Unknown | + + + | Marital Status | Single | + + + | Yazidi Affiliation | Unknown | + + + | Race | Unknown | + + + | Ethnic Group | Unknown | + + + Author + + + | Author | [facility] | | | and Edana | + + + | Organization | [facility] | | | [...] Team Providers + +------+ + | Care Patient Service Representative Name | Role | Phone | + [...] + + | 03/24/ | Telephone | [facility] | Eliazar, | Other (Schedule | | 2019 | | PULMONOLOGY 1100 | Aaliyah Evans, | follow up & order | | | | [address] | MD [address] | [address] | | | | [place], [place] | [place], | | | | | [address] | [place] [address] | | | | | [phone] | [phone] | | | | | | | [...]
--- OUTSIDE RECORDS SUMMARY | ~2019-07-15 | XMS | Encounter Summary ---
Demographics + + + | Address | [address] | | | [place] [address] | + + + | Home Phone | | + + + | Preferred Language | Unknown | + + + | Marital Status | Single | + + + | Scientologist Affiliation | Unknown | + + + | Race | Unknown | + + + | Ethnic Group | Unknown | + + + Author + + + | Author | [facility] | | | and Edana | + + + | Organization | [facility] | | | and Edana [...] Team Providers + +------+ + | Care Clicking Machine Operator Name | Role | Phone [...] [place], [place] | | | | | [place] MOTOR | [facility] [place] [place] | [address] Phone: | | | | | &/SENS 1-2 | [address] | [phone] | | | | | NRV CNDJ | Phone: | Fax: | | | | | PRECONF | [phone] | [phone] | | | | | [place] | Fax: | | | | | | NCS-right | [phone] | | | | | | upper [...] | visit | PHYSIATRY [address] | [address], [address] | tunnel syndrome - | | | | [place], | [place], [place] | moderate on the | | | | [place] [address] | [address] | rigdesirae and mild on | | | | [phone] | | the left (Primary | | | | | | Dx) | +--------+ + + [...] Hollingsworth MD - 04/05/2014 6:46 PM PDT [facility] Musculoskeletal, Sports and Spine, Physiatry [address] [address] Test Date: 04/05/2014 Patient Name: Diony Salinas : 1960 Physician: David Hollingsworth MD MR #: [id number] Sex: Female Referring Physician: Bridger Esposito MD [...] hesitate to call. David Hollingsworth MD Fellow, [place] [employer]. documented [...]
--- OUTSIDE RECORDS SUMMARY | ~2019-07-15 | XMS | Encounter Summary ---
Demographics + + + | Address | [address] | | | [place] [address] | + + + | Home Phone | | + + + | Preferred Language | Unknown | + + + | Marital Status | Single | + + + | Quaker Affiliation | Unknown | + + + | Race | Unknown | + + + | Ethnic Group | Unknown | + + + Author + + + | Author | [facility] | | | and Edana | + + + | Organization | [facility] | | | and [...] Team Providers + +------+ + | Care Taste Tester Name | Role | Phone | + +------+ + | Gaetano Candelaria MD | PCP | | + +------+ + Encounter Details +--------+ + + + + | Date | Type | Department | Care Team | Description | +--------+ + + + + | 09/02/ | Hospital | [facility] | Conversion | Incidental pulmonary | | 2018 | Encounter | [facility] [address] | Transaction, | nodule, greater | | | | [address] | Provider Unknown | than or equal to 8mm | | | | [place] | [phone] | | | | | [address] | | | | | | [phone] | Aaliyah Perea | | | | | | MD [address]ina [address] | | | | | | [address] | | | | | | [place] [address] | | | | | | [phone] | | | | | | | [...] At | + + + | DIONY [facility] [address] [...] Conversion - 03/11/2019 7:03 AM PDT [facility] | | FemaleCT CHEST WO CONTRAST09/02/2017 [...]
--- OUTSIDE RECORDS SUMMARY | ~2019-07-15 | XMS | Encounter Summary ---
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 | Role | Phone | [...] [place], [place] | | | | | [place] MOT[place] | [facility], [place] | [address] Phone: | | | | | &/SENS 1-2 | [address] | [phone] | | | | | NRV CNDJ | Phone: | Fax: | | | | | PRECONF | [phone] | [phone] | | | | | [place] | Fax: | | | | | | NCS-right | [phone] | | | | | | upper [...] tunnel syndrome - | | | | [place], | [place] | moderate on the | | | | [place] [address] | [address] | rigdesirae and mild on | | | | [phone] | | the left (Primary | | [...] Hollingsworth MD - 04/05/2014 6:[address] [facility] Musculoskeletal, Sports and Spine, Physiatry [address] [address] Test Date: 04/05/2014 Patient Name: Diony Salinas : 1960 Physician: David Hollingsworth MD MR #: [id number] Sex: Female Referring Physician: Bridger Esposito MD [...] hesitate to call. David Hollingsworth MD Fellow, [employer] [employer]. documented [...]
--- OUTSIDE RECORDS SUMMARY | ~2019-07-15 | XMS | Encounter Summary ---
Demographics + + + | Address | [address] | | | [place] [address] | + + + | Home Phone | | + + + | Preferred Language | Unknown | + + + | Marital Status | Single | + + + | Buddhist Affiliation | Unknown | + + + | Race | Unknown | + + + | Ethnic Group | Unknown | + + + Author + + + | Author | [facility] | | | and Edana | + + + | Organization | [facility] | | | and [...] Team Providers + +------+ + | Care Flat Screen Worker Name | Role | Phone | + +------+ + | Gaetano Candelaria MD | PCP | | + +------+ + Encounter Details +--------+ + + + + | Date | Type | Department | Care Team | Description | +--------+ + + + + | 02/23/ | Orders Only | [facility] | Provider, | | | 2018 | | SYSTEM GENERIC OP | MD [address] | | | | | [address] | Elizabeth JANSEN | | | | | [address] [place], [place] | [place] [address] | | | | | [address] | | | | | | [phone] | | | +--------+ + + + [...]
--- OUTSIDE RECORDS SUMMARY | ~2019-07-15 | XMS | Encounter Summary ---
Demographics + + + | Address | [address] | | | [place] [address] | + + + | Home Phone [...] | Organization | [facility] | | | and [...] Team Providers + +------+ + | Care Mailmaster Name | Role | Phone | + +------+ + | Gaetano Candelaria MD | PCP | | + +------+ + Encounter Details +--------+ + + + + | Date | Type | Department | Care Team | Description | +--------+ + + + + | 05/31/ | Hospital | [facility] | Conversion | Incidental pulmonary | | 2017 | Encounter | [facility] [address] | Transaction, | nodule, greater | | | | [address] | Provider Unknown | than or equal to 8mm | | | | [place] | [phone] | | | | | [address] | | | | | | [phone] | Aaliyah Perea | | | | | | MD [address]ina [address] | | | | | | [address] | | | | | | [place] [address] | | | | | | [phone] | | | | | | | [...] At | + + + | DIONY [facility] CT CHEST WO CONTRAST HISTORY: Incidental | [...] Conversion - 03/11/2019 10:55 PM PDT [facility] | | HISTORY:Incidental [...]
--- OUTSIDE RECORDS SUMMARY | ~2019-07-15 | XMS | Encounter Summary ---
Demographics + + + | Address | [address] | | | [place] [address] | + + + | Home Phone [...] + + | Author | [facility] | | | and Edana | + + + | Organization | [facility] | | | and Edana | [...] Team Providers + +------+ + | Care Milk Collector Name | Role | Phone | + +------+ + | Gaetano Candelaria MD | PCP | | + +------+ + Encounter Details +--------+ + + + + | Date | Type | Department | Care Team | Description | +--------+ + + + + | 09/02/ | Hospital | [facility] | Conversion | Incidental pulmonary | | 2018 | Encounter | [facility] CT [address] | Transaction, | nodule, greater | | | | [address] | Provider Unknown | than or equal to 8mm | | | | [place] | [phone] | | | | | [address] | | | | | | [phone] | Aaliyah Perea | | | | | | MD [address] | | | | | | [address] | | | | | | [place] [address] | | | | | | [phone] | | | | | | | [...] At | + + + | DIONY [facility] [address] CHEST WO [...] Conversion - 03/11/2019 7:03 AM PDT [facility] | | FemaleCT CHEST WO CONTRAST09/02/2017 [...]
--- OUTSIDE RECORDS SUMMARY | ~2019-07-15 | XMS | Encounter Summary ---
Demographics + + + | Address | [address] | | | [place] [address] | + + + | Home Phone | | + + + | Preferred Language | Unknown | + + + | Marital Status | Single | + + + | Church Affiliation | Unknown | + + + | Race | Unknown | + + + | Ethnic Group | Unknown | + + + Author + + + | Author | [facility] | | | and Edana | + + + | Organization | [facility] | | | and [...] Team Providers + +------+ + | Care Rail Bender Name | Role | Phone | + [...] | | | Incidental | Aaliyah | [facility] | | | | | pulmonary | MD Cristina | SLEEP | | | | | nodule, | [address] | [facility] | | | | | greater than | [address] | [address] | | | | | or equal to | [place]UNICE Monteiro | [place] | | | | | 8mm | [place] | [place], [place] | | | | | Procedures | [address] | [address] | | | | | Pulmonary | Phone: | Phone: | | | | | function | [phone] | [phone] | | | | | test | Fax: | Fax: | | | | | | [phone] | [phone] | + +--------+ + + + + Encounter Details +--------+---------+ + + + | Date | Type | Department | Care Team | Description | +--------+---------+ + + + | 06/30/ | Office | [facility] | Eliazar, | Incidental pulmonary | | 2019 | Visit | PULMONOLOGY [address] | Aaliyah Evans, | nodule, greater | | | | [address] | MD [address] | than or equal to 8mm | | | | [place] | [place], | (Primary Dx); | | | | [address] | [place] [address] | History of breast | | | | [phone] | [phone] | cancer; Personal | | | | [...] only fol lows with her Oncologist in [facility] every year. She has an occasional cough productive of clear sputum. She denies hemoptysis. She has no fevers, night sweats, chills or weight loss. She has dyspnea on exertion, but only when she is hurrying or doing more rigorous chores like [employer]. She has chronic pains and has been [...] but is active at work. 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 ACTIVITIES OF DAILY LIVING: Independent without difficulty. [...] were also smokers. 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 Immanuel monteiro was raised in [place], lived in [place] for 2 years, and previous to that, was in [facility] and for 29 years. She has [...] still is in remission. Her Oncologist in [place] has retired, and so I have encouraged [...] Perea MD Pulmonary and Critical Care Medicine [facility] [address] , [place] [address] documente d in this encounter Plan of [...]
--- OUTSIDE RECORDS SUMMARY | ~2019-07-15 | XMS | Clinical Summary ---
Demographics + + + | Address | [address] | | | [place] [address] | + + + | Home Phone | | + + + | Preferred Language | Unknown | + + + | Marital Status | Single | + + + | Buddhism Affiliation | Unknown | + + + | Race | Unknown | + + + | Ethnic Group | Unknown | + + + Author + + + | Author | [facility] | | | and Edana | + + + | Organization | [facility] | | | and [...] Team Providers + +------+ + | Care Manager Operational Name | Role | Phone | + [...] +--------+ +---------+--------+ | MEDICARE | MEDICA | [id number] | 09/27/19 | [phone] | | Medica | | | RE | | 09-Pre | 5 | | re | | | PART A | | sent | | | | | | AND B | | | | | | + +--------+ +--------+ +---------+--------+ | MEDICAID [place] | MEDICA | [id number] | 06/16/ | [phone] | | Medica [...] Person | Self | [birth year] | [address] | | | al/Fam | | 1961 | [phone] | [place] [address] | | | fernando | | | 6 (Home) | | + +--------+ +--------+ + + | Diony Salinas | Person | Self | [birth year] | | [address] | | | al/Fam | | 1961 | [phone] | [place] [address] | | | fernando | | | 6 (Home) | | + +--------+ +--------+ + + Advance Directives + + + + + | Type | Date Recorded | Patient | Explanation | | | | Psychologist Chief | | + + + + + | Power of | | | | | Historical Records Administrator | | | | + + + + + | Advance | | | | | Directive | | | | + + + + +
--- OUTSIDE RECORDS SUMMARY | ~2019-07-15 | XMS | Encounter Summary ---
Demographics + + + | Address | [address] | | | [place] [address] | + + + | Home Phone [...] [facility] | | | and Edana [...] Team Providers + +------+ + | Care Oil Pipe Inspector Helper Name | Role | Phone | + +------+ + | Gaetano Candelaria MD | PCP | | + +------+ + Encounter Details +--------+ + + + + | Date | Type | Department | Care Team | Description | +--------+ + + + + | 02/26/ | Hospital | [facility] | Conversion | Incidental pulmonary | | 2018 | Encounter | [facility] [address] | Transaction, | nodule, greater | | | | [address] | Provider Unknown | than or equal to 8mm | | | | [place] | [phone] | | | | | [address] | | | | | | [phone] | Aaliyah Perea | | | | | | MD [address]ina [address] | | | | | | [address] | | | | | | [place] [address] | | | | | | [phone] | | | | | | | [...] Conversion - 03/11/2019 7:03 AM PDT [id number] | | FemaleCT CHEST WO CONTRAST02/26/2018 [...]
[~2019-07-15 10:30] MED LIST: FLUOXETINE HCL20 MG PO; GABAPENTIN400 MG PO; LEVOTHYROXINE112 MCG PO; MORPHINE SULFAT15 M1 PO; NORCO 5-325 TA1 EACH PO; ONDANSETRON ODT8 MG PO; OXYCODONE HCL10 MG PO
--- OUTSIDE RECORDS SUMMARY | 2019-07-15 10:34 | XMS ---
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 EDeon VISIT COUNT (12 MO.) 2 OLIVIA Abrams TOTAL 2 NOTE: Visits indicate total known visits. ED/UCC VISIT TRACKING (12 MO.) 07/15/2019 10:31 OLIVIA Mckenna [place] TYPE: Emergency COMPLAINT: - FLANK PAIN, NAUSEA 01/24/2019 07:24 OLIVIA Mckenna [place] TYPE: Emergency COMPLAINT: - L FLANK PAIN DIAGNOSES: - Unspecified abdominal pain - Hydronephrosis with renal and ureteral calculous obstruction INPATIENT VISIT TRACKING (12 MO.) No inpatient visits to display in this time frame [email or web address]
[2019-07-15] MEDS ORDERED: CIPRO500 MG PO (10:53)
[2019-07-15] MEDS ORDERED: CELECOXIB100 MG PO (10:54)
== END 2019-07-15 14:39 | disposition home or self-care (01) ==
LOC: ED 10:30
DX: N13.2 Hydronephrosis with renal and ureteral calculous obstruction (principal); N39.0 Urinary tract infection, site not specified; Z85.3 Personal history of malignant neoplasm of breast; E03.9 Hypothyroidism, unspecified; F17.200 Nicotine dependence, unspecified, uncomplicated; Z79.899 Other long term (current) drug therapy; Z79.891 Long term (current) use of opiate analgesic
CPT/HCPCS: 74176; 80053; 81001; 83690; 85025; 96361; 96365; 96375; 99284-25; 99406; J0696; J1885; J2270; J2405; J7030

== ENCOUNTER 2019-12-15 20:29 | Emergency (ER) | payer MEDICARE, OTHER ==
--- OUTSIDE RECORDS SUMMARY | ~2019-12-15 | XMS | Encounter Summary ---
Demographics + + + | Address | [address] | | | [place] [address] | + + + | Home Phone | | + + + | Preferred Language | Unknown | + + + | Marital Status | Single | + + + | Jewish Affiliation | Unknown | + + + | Race | Unknown | + + + | Ethnic Group | Unknown | + + + Author + + + | Author | [facility] | | | and Edana | + + + | Organization | [facility] | | | and [place] | + + + | Address | Unknown | + + + | Phone | Unavailable | + + + Support + + +---------+ + | Name | Relationship | Address | Phone | + + +---------+ + | Vimal Schmid | ECON | Unknown | | + + +---------+ + Care Team Providers + +------+ + | Care Diesel Power Mechanic Name | Role | Phone | + +------+ + | Bridger Esposito MD | PCP | Unavailable | + +------+ + Reason for Referral Diagnostic/Screening (Routine) +--------+--------+ + + + + | Status | Reason | Specialty | Diagnoses / | Referred By | Referred To | | | | | Procedures | Contact | Contact | +--------+--------+ + + + + | Closed | | Radiology | Diagnoses | Eliazar, | [facility] | | | | | Incidental | Aaliyah | 945 | | | | | pulmonary | MD Cristina | [address] | | | | | nodule, | [address] | [address] | | | | | greater than | [address] | [facility] [place] | | | | | or equal to | [address] [address] | [address] | | | | | 8mm | [place] | Phone: | | | | | Procedures | [address] | [phone] | | | | | CT Chest wo | Phone: | Fax: | | | | | Contrast | [phone] | [phone] | | | | | | Fax: | | | | | | | [phone] | | +--------+--------+ + + + + Reason for Visit Diagnostic/Screening (Routine) +--------+--------+ + + + + | Status | Reason | Specialty | Diagnoses / | Referred By | Referred To | | | | | Procedures | Contact | Contact | +--------+--------+ + + + + | Closed | | Radiology | Diagnoses | Eliazar, | [facility] [address] | | | | | Incidental | Aaliyah | 945 | | | | | pulmonary | MD Cristina | [address] | | | | | nodule, | [address] | [address] | | | | | greater than | [address] | [place], [place] | | | | | or equal to | [address] | [address] | | | | | 8mm | [place], [place] | Phone: | | | | | Procedures | [address] | [phone] | | | | | CT Chest wo | Phone: | Fax: | | | | | Contrast | [phone] | [phone] | | | | | | Fax: | | | | | | | [phone] | | +--------+--------+ + + + + Encounter Details +--------+ + + + + | Date | Type | Department | Care Team | Description | +--------+ + + + + | 06/30/ | Hospital | [facility] | Eliazar, | Incidental pulmonary | | 2019 | Encounter | [facility] [address] | Aaliyah Evans, | nodule, greater | | | | [address] | [address] | than or equal to 8mm | | | | [place] | [place], | | | | | [address] | [place] [address] | | | | | [phone] | [phone] | | | | | | | | +--------+ + + + + Social History + +-------+ +--------+------+ | Tobacco Use | Types | Packs/Day | Years | Date | | | | | Used | | + +-------+ +--------+------+ | Current Every Day | | 0.5 | | | | Smoker | | | | | + +-------+ +--------+------+ + +---+---+---+ | Smokeless Tobacco: | | | | | Never Used | | | | + +---+---+---+ + + +---------+ + | Alcohol Use | Drinks/Week | oz/Week | Comments | + + +---------+ + | Not Asked | | | | + + +---------+ + + + + | Sex Assigned at | Date Recorded | | | | + + + | Not on file | | + + + + + + + | Job Start Date | Occupation | Industry | + + + + | Not on file | Not on file | Not on file | + + + + + + + + | Travel History | Travel Start | Travel End | + + + + + + | No recent travel history available. | + + documented as of this encounter Medications at Time of Discharge + + + +---------+--------+ + | Medication | Sig | Dispensed | Refills | Start | End Date | | | | | | Date | | + + + +---------+--------+ + | FLUOXETINE HCL PO | Take 20 mg by mouth. | | 0 | | | | | 1 tab QAM and 2 | | | | | | | tabs QPM | | | | | + + + +---------+--------+ + | gabapentin | Take 400 mg by mouth | | 0 | | | | (NEURONTIN) 400 mg | 3 times daily. | | | | | | capsule | | | | | | + + + +---------+--------+ + | LEVOTHYROXINE | Take 125 mcg by | | 0 | | | | SODIUM PO | mouth. As directed 5 | | | | | | | days a week | | | | | + + + +---------+--------+ + | MORPHINE SULFATE | Take 15 mg by mouth | | 0 | | | | ER PO | 3 times daily. | | | | | + + + +---------+--------+ + | | Take by mouth. | | 0 | | | | oxyCODONE-acetaminop | | | | | | | hen (PERCOCET) | | | | | | | 10-325 mg per tablet | | | | | | + + + +---------+--------+ + | PROMETHAZINE HCL | Take 25 mg by mouth | | 0 | | | | PO | every 6 hours as | | | | | | | needed. | | | | | + + + +---------+--------+ + | SUMAtriptan | Take 100 mg by mouth | | 0 | | | | (IMITREX) 100 mg | Daily as needed for | | | | | | tablet | Migraine. Once a | | | | | | | day prn headache | | | | | + + + +---------+--------+ + documented as of this encounter Plan of Treatment Not on filedocumented as of this encounter Procedures + +--------+ + + + | Procedure Name | Priori | Date/Time | Associated Diagnosis | Comments | | | ty | | | | + +--------+ + + + | CT CHEST WO CONTRAST | Routin | 06/30/2019 | Incidental | Results for this | | | e | 2:33 PM | pulmonary nodule, | procedure are in the | | | | PST | greater than or | results section. | | | | | equal to 8mm | | + +--------+ + + + documented in this encounter Results CT Chest wo Contrast (06/30/2019 2:33 PM PST) + + | Specimen | + + | | + + + + + | Impressions | Performed At | + + + | 1. Pulmonary findings including a left apical area of nodular | [facility] | | fibrosis, anterior left upper lobe area of chronic parenchymal | | | scarring and consolidation, left upper lobe nodule and a right upper | | | lobe nodule at the minor fissure are all largely unchanged in | | | comparison to exams dating back to 05/31/2017. None of these areas | | | showed significant PET activity on the prior PET scan on 06/05/2017. | | | Pulmonary Nodule Follow Up Recommendation:Solid non-calcified lung | | | nodule 6-8 mm of indeterminate stability. Such nodules are common and | | | have an extremely low malignant potential. For non-smokers follow-up | | | CT recommended in 12 months with no further follow-up if stable. For | | | smokers follow-up chest CT recommended at 12 and 24 months with no | | | further follow-up if stable. (Fleischner society recommendation). | | | Since 2 years of stability of the pulmonary nodules has now been | | | established, in addition to the absence of any significant metabolic | | | activity in the areas of scarring, no further follow-up is required | | | other than annual screening for lung cancer given the history of | | | smoking. 2. Mild centrilobular emphysema. 3. Patient is status post | | | cholecystectomy. The common bile duct is moderately enlarged | | | measuring 15 mm but stable in comparison to the previous exams dating | | | back to 05/31/2017. This may indicate spasm or stricture of the | | | sphincter of Oddi. No obvious mass is seen in the pancreatic head. In | | | an asymptomatic post cholecystectomy patient this may not require | | | further workup. If the patient has signs of elevated bilirubin or | | | jaundice, ERCP is recommended. Signed by: Bambi Reyes, | | | Aroldo Sign Date/Time: 07/02/2019 8:06 AM | | + + + + + + | Narrative | Performed At | + + + | CT CHEST WITHOUT CONTRAST CLINICAL INFORMATION: 8 mm | [facility] | | pulmonary nodule left upper lobe in a former smoker. Pls note any | | | increase in size. COMPARISON: CT CHEST WO CONTRAST (02/26/2018); CT | | | CHEST WO CONTRAST (09/02/2017); PET CT TUMOR LOCALIZATION INITIAL - | | | TORSO (06/05/2017); CT CHEST WO CONTRAST (05/31/2017); PROCEDURE: | | | Axial images through the chest. Multiplanar reconstructions. At | | | least one of the following CT dose optimization techniques were used: | | | Automated exposure control; Adjustment of mA and/or kV according to | | | patient size; Use of iterative reconstruction technique. FINDINGS: | | | Lungs, Pleura and Airways: No airway narrowing or obstruction. No | | | pleural effusion or pneumothorax. Mild centrilobular emphysema | | | seen in the upper lobes. A linear fibrotic band is seen at the | | | posterior right lung base and another is seen at the anterior left | | | lung base. Nodular fibrotic scarring is again seen at the left lung | | | apex. The most solid portion of this region measures 8 x 8 mm, | | | image 34 series 4, previously 7 x 7 mm, image 23 series 4 on | | | 02/26/2018, 11 x 8 mm on image 31 series 4 on 09/02/2017 and 8 x 7 mm on | | | image 35 series 4 on 05/31/2017. This showed no evidence of | | | significant metabolic activity on the PET scan on 06/05/2017. | | | Subpleural chronic parenchymal scarring and consolidation is seen at | | | the anterior margin of the left upper lobe with fibrotic band | | | stretching to the upper left hilum along the bronchovascular tree. | | | This region measures up to 1.1 x 3.1 cm, image 86 series 4, previously | | | 1.3 x 3.1 cm image 41 series 3 on 02/26/2018 and 1.1 x 3.1 cm on image | | | 89 series 4 on 05/31/2017. This showed no evidence of significant | | | metabolic activity on the PET scan on 06/05/2017. A left upper lobe | | | nodule is noted, measuring 2.2 mm, image 82 series 4,, previously | | | 4.2 mm on image 38 series 3 on 02/26/2018 and 2.8 mm on image 85 series | | | 4 on 05/31/2017. A nodule the right upper lobe at the minor | | | fissure is noted, measuring 3 mm, image 136 series 4, previously 3 mm | | | image 66 series 3 on 02/26/2018 and 3 mm image 139 series 4 on | | | 05/31/2017. Chest wall: The patient has bilateral breast implants. | | | Surgical clips are seen in the left axillary region. Mediastinum: | | | The heart is normal in size. No significant pericardial, great | | | vessel or esophageal abnormality. No mediastinal mass. Lymph Nodes: | | | An 13 mm precarinal node is noted, image 101 series 4, unchanged from | | | 05/31/2017. No other enlarged mediastinal or hilar nodes are seen. | | | Upper Abdomen: The visualized portion of the liver is normal. The | | | patient is status post cholecystectomy. The common bile duct is | | | enlarged measuring 15 mm, image 124 series 2. No common duct stone | | | is seen. The main pancreatic duct is dilated measuring up to 4.6 | | | mm, image 125 series 2. No pancreatic mass or cyst is seen in the | | | visualized portions of the pancreas. The spleen is normal. The | | | adrenal glands are normal. The visualized portions of the kidneys | | | are normal. The visualized portion of the stomach is normal. | | | BODY WALL Soft Tissues: The soft tissues of the chest wall are | | | unremarkable. Bones: No acute fracture or vertebral end plate | | | destruction. No lytic or blastic lesion. | | + + + + + | Procedure Note | + + | Marcus, Rad Results In - 07/02/2019 8:10 AM PST | | CT CHEST WITHOUT CONTRAST | | | | CLINICAL INFORMATION: | | 8 mm pulmonary nodule left upper lobe in a former smoker. Pls note any | | increase in size. | | | | COMPARISON: | | CT CHEST WO CONTRAST (02/26/2018); CT CHEST WO CONTRAST (09/02/2017); PET | | CT TUMOR LOCALIZATION INITIAL - TORSO (06/05/2017); CT CHEST WO CONTRAST | | (05/31/2017); | | | | PROCEDURE: | | Axial images through the chest. Multiplanar reconstructions. | | | | At least one of the following CT dose optimization techniques were | | used: Automated exposure control; Adjustment of mA and/or kV according | | to patient size; Use of iterative reconstruction technique. | | | | FINDINGS: | | Lungs, Pleura and Airways: No airway narrowing or obstruction. No | | pleural effusion or pneumothorax. | | | | Mild centrilobular emphysema seen in the upper lobes. A linear | | fibrotic band is seen at the posterior right lung base and another is | | seen at the anterior left lung base. Nodular fibrotic scarring is | | again seen at the left lung apex. The most solid portion of this | | region measures 8 x 8 mm, image 34 series 4, previously 7 x 7 mm, image | | 23 series 4 on 02/26/2018, 11 x 8 mm on image 31 series 4 on 09/02/2017 and | | 8 x 7 mm on image 35 series 4 on 05/31/2017. This showed no evidence of | | significant metabolic activity on the PET scan on 06/05/2017. | | | | Subpleural chronic parenchymal scarring and consolidation is seen at | | the anterior margin of the left upper lobe with fibrotic band | | stretching to the upper left hilum along the bronchovascular tree. | | This region measures up to 1.1 x 3.1 cm, image 86 series 4, previously | | 1.3 x 3.1 cm image 41 series 3 on 02/26/2018 and 1.1 x 3.1 cm on image 89 | | series 4 on 05/31/2017. This showed no evidence of significant | | metabolic activity on the PET scan on 06/05/2017. | | | | A left upper lobe nodule is noted, measuring 2.2 mm, image 82 series | | 4,, previously 4.2 mm on image 38 series 3 on 02/26/2018 and 2.8 mm on | | image 85 series 4 on 05/31/2017. | | | | A nodule the right upper lobe at the minor fissure is noted, measuring | | 3 mm, image 136 series 4, previously 3 mm image 66 series 3 on 02/26/2018 | | and 3 mm image 139 series 4 on 05/31/2017. | | | | Chest wall: The patient has bilateral breast implants. Surgical clips | | are seen in the left axillary region. | | Mediastinum: The heart is normal in size. No significant pericardial, | | great vessel or esophageal abnormality. No mediastinal mass. | | Lymph Nodes: An 13 mm precarinal node is noted, image 101 series 4, | | unchanged from 05/31/2017. No other enlarged mediastinal or hilar nodes | | are seen. | | Upper Abdomen: The visualized portion of the liver is normal. The | | patient is status post cholecystectomy. The common bile duct is | | enlarged measuring 15 mm, image 124 series 2. No common duct stone is | | seen. The main pancreatic duct is dilated measuring up to 4.6 mm, | | image 125 series 2. No pancreatic mass or cyst is seen in the | | visualized portions of the pancreas. The spleen is normal. The | | adrenal glands are normal. The visualized portions of the kidneys are | | normal. The visualized portion of the stomach is normal. | | | | BODY WALL | | Soft Tissues: The soft tissues of the chest wall are unremarkable. | | Bones: No acute fracture or vertebral end plate destruction. No lytic | | or blastic lesion. | | | | IMPRESSION: | | 1. Pulmonary findings including a left apical area of nodular fibrosis, | | anterior left upper lobe area of chronic parenchymal scarring and | | consolidation, left upper lobe nodule and a right upper lobe nodule at | | the minor fissure are all largely unchanged in comparison to exams | | dating back to 05/31/2017. None of these areas showed significant PET | | activity on the prior PET scan on 06/05/2017. Pulmonary Nodule Follow Up | | Recommendation:Solid non-calcified lung nodule 6-8 mm of indeterminate | | stability. Such nodules are common and have an extremely low malignant | | potential. For non-smokers follow-up CT recommended in 12 months with | | no further follow-up if stable. For smokers follow-up chest CT | | recommended at 12 and 24 months with no further follow-up if stable. | | (Fleischner society recommendation). Since 2 years of stability of the | | pulmonary nodules has now been established, in addition to the absence | | of any significant metabolic activity in the areas of scarring, no | | further follow-up is required other than annual screening for lung | | cancer given the history of smoking. | | 2. Mild centrilobular emphysema. | | 3. Patient is status post cholecystectomy. The common bile duct is | | moderately enlarged measuring 15 mm but stable in comparison to the | | previous exams dating back to 05/31/2017. This may indicate spasm or | | stricture of the sphincter of Oddi. No obvious mass is seen in the | | pancreatic head. In an asymptomatic post cholecystectomy patient this | | may not require further workup. If the patient has signs of elevated | | bilirubin or jaundice, ERCP is recommended. | | | | | | | | Signed by: Bambi Reyes Edward | | Sign Date/Time: 07/02/2019 8:06 AM | + + + +---------+ + + | Performing | Address | City/State/Zipcode | Phone Number | | Organization | | | | + +---------+ + + | [facility] | | | | + +---------+ + + documented in this encounter Visit Diagnoses + + | Diagnosis | + + | Incidental pulmonary nodule, greater than or equal to 8mm Solitary pulmonary nodule | + + documented in this encounter"
--- OUTSIDE RECORDS SUMMARY | ~2019-12-15 | XMS | Encounter Summary ---
Demographics + + + | Address | [address] | | | [place] [address] | + + + | Home Phone | | + + + | Preferred Language | Unknown | + + + | Marital Status | Single | + + + | Episcopalian Affiliation | Unknown | + + + | Race | Unknown | + + + | Ethnic Group | Unknown | + + + Author + + + | Author | [facility] | | | and [place] | + + + | Organization | [facility] | | | and Edana [...] Team Providers + +------+ + | Care Process Control Supervisor Name | Role | Phone | + +------+ + | Bridger Esposito MD | PCP | Unavailable | + +------+ + Reason for Visit +--------+ + | Reason | Comments | +--------+ + | Other | | +--------+ + Encounter Details +--------+ + + + + | Date | Type | Department | Care Team | Description | +--------+ + + + + | 08/14/ | Telephone | [facility] | Eliazar, | Other | | 2020 | | PULMONOLOGY [address] | Aaliyah Evans, | | | | | [address] | [address] | | | | | [facility] [place] | [place], | | | | | [address] | [place] [address] | | | | | [phone] | | | | | | | [...] Not on filedocumented as of this encounter Visit Diagnoses Not on filedocumented in this encounter"
--- OUTSIDE RECORDS SUMMARY | ~2019-12-15 | XMS | Encounter Summary ---
Demographics + + + | Address | [address] | | | [place] [address] | + + + | Home Phone | | + + + | Preferred Language | Unknown | + + + | Marital Status | Single | + + + | Scientologist Affiliation | Unknown | + + + | Race | Unknown | + + + | Ethnic Group | Unknown | + + + Author + + + | Author | [facility] | | | and Edana | + + + | Organization | [facility] | | | and Edana [...] Team Providers + +------+ + | Care Video Technician Name | Role | Phone | + +------+ + | Bridger Esposito MD | PCP | Unavailable | + +------+ + Reason for Visit +--------+ + | Reason | Comments | +--------+ + | Other | Schedule follow up & order CT. | +--------+ + Encounter Details +--------+ + + + + | Date | Type | Department | Care Team | Description | +--------+ + + + + | 03/24/ | Telephone | [facility] | Eliazar, | Other (Schedule | | 2019 | | PULMONOLOGY [address] | Aaliyahfrancisca Evans, | follow up & order | | | | [address] | MD [address] | [address] | | | | [place], [place] | [address] [address] [place], | | | | | [address] | [place] [address] | | | | | [phone] | [phone] | | | | | | | [...]
--- OUTSIDE RECORDS SUMMARY | ~2019-12-15 | XMS | Encounter Summary ---
Demographics + + + | Address | [address] | | | [place] [address] | + + + | Home Phone | | + + + | Preferred Language | Unknown | + + + | Marital Status | Single | + + + | Baptism Affiliation | Unknown | + + + | Race | Unknown | + + + | Ethnic Group | Unknown | + + + Author + + + | Author | [facility] | | | and Edana | + + + | Organization | [facility] | | | and Edana | [...] Team Providers + +------+ + | Care Neuroradiologist Name | Role | Phone | + +------+ + | Gaetano Candelaria MD | PCP | | + +------+ + Encounter Details +--------+ + + + + | Date | Type | Department | Care Team | Description | +--------+ + + + + | 06/05/ | Hospital | [facility] | Conversion | Incidental pulmonary | | 2017 | Encounter | [facility] | Transaction, | nodule, greater | | | | MEDICINE 945 | Provider Unknown | than or equal to 8mm | | | | [address] | [phone] | | | | | [place] | | | | | | [address] | Aaliyah Perea | | | | | [phone] | MD Cristina [address] | | | | | | [address] | | | | | | [place] [address] | | | | | | [phone] | | | | | | | [...]
--- OUTSIDE RECORDS SUMMARY | ~2019-12-15 | XMS | Encounter Summary ---
Demographics + + + | Address | [address] | | | [place] [address] | + + + | Home Phone | | + + + | Preferred Language | Unknown | + + + | Marital Status | Single | + + + | Voodoo Affiliation | Unknown | + + + | Race | Unknown | + + + | Ethnic Group | Unknown | + + + Author + + + | Author | [facility] | | | and Edana | + + + | Organization | [facility] | | | and Edana [...] Team Providers + +------+ + | Care Hand Sander Name | Role | Phone | + [...] | greater than | [address] | [facility] [place] | | | | | or equal to | [place] | [address] | | | | | 8mm | [facility] [place] [facility] | Phone: | | | | | Procedures | [address] | [phone] | | | | | CT Chest wo | Phone: | Fax: | | | | | Contrast | [phone] | [phone] | | | | | | Fax: | | | | | | | [phone] | | +--------+--------+ + + + + Reason for Visit Diagnostic/Screening (Routine) +--------+--------+ + + + + | Status | Reason | Specialty | Diagnoses / | Referred By | Referred To | | | | | Procedures | Contact | Contact | +--------+--------+ + + + + | Closed | | Radiology | Diagnoses | Eliazar, | [facility] [address] | | | | | Incidental | Aaliyah | 945 | | | | | pulmonary | MD Cristina | [address] | | | | | nodule, | [address] | [address] | | | | | greater than | [address] | [place], [place] | | | | | or equal to | [address] | [address] | | | | | 8mm | [place], [place] | Phone: | | | | | Procedures | [address] | [phone] | | | | | CT Chest wo | Phone: | Fax: | | | | | Contrast | [phone] | [phone] | | | | | | Fax: | | | | | | | [phone] | | +--------+--------+ + + + + Encounter Details +--------+ + + + + | Date | Type | Department | Care Team | Description | +--------+ + + + + | 06/30/ | Hospital | [facility] | Eliazar, | Incidental pulmonary | | 2019 | Encounter | [facility] CT [address] | Aaliyah Evans, | nodule, greater | | | | [address] | [address] | than or equal to 8mm | | | | [facility] [place] [facility] | [place], | | | | | [address] | [place] [address] | | | | | [phone] | [phone] | | | | | | | [...]
--- OUTSIDE RECORDS SUMMARY | ~2019-12-15 | XMS | Encounter Summary ---
Demographics + + + | Address | [address] | | | [place] [address] | + + + | Home Phone | | + + + | Preferred Language | Unknown | + + + | Marital Status | Single | + + + | Druze Affiliation | Unknown | + + + | Race | Unknown | + + + | Ethnic Group | Unknown | + + + Author + + + | Author | [facility] | | | and Edana | + + + | Organization | [facility] | | | and Edana [...] Team Providers + +------+ + | Care Right Of Way Appraiser Name | Role | Phone | + [...] + + | 08/14/ | Telephone | [facility] | Eliazar, | Other | | 2020 | | PULMONOLOGY [address] | Aaliyah Evans, | | | | | [address] | [address] | | | | | [facility] [place] | [place], | | | | | [address] | [place] [address] | | | | | [phone] | [phone] | | | | | | | [...]
--- OUTSIDE RECORDS SUMMARY | ~2019-12-15 | XMS | Encounter Summary ---
Demographics + + + | Address | [address] | | | [place] [address] | + + + | Home Phone | | + + + | Preferred Language | Unknown | + + + | Marital Status | Single | + + + | Jew Affiliation | Unknown | + + + | Race | Unknown | + + + | Ethnic Group | Unknown | + + + Author + + + | Author | [facility] | | | and Edana | + + + | Organization | [facility] | | | and Edana [...] Team Providers + +------+ + | Care Placer Miner Name | Role | Phone | + +------+ + | Gaetano Candelaria MD | PCP | | + +------+ + Encounter Details +--------+ + + + + | Date | Type | Department | Care Team | Description | +--------+ + + + + | 02/23/ | Orders Only | [facility] | Provider, | | | 2018 | | SYSTEM GENERIC OP | MD [address] | | | | | [address] | Elizabeth JANSEN | | | | | [address] [place], [place] | [place] [address] | | | | | [address] | | | | | | [phone] | | | +--------+ + + + [...]
--- OUTSIDE RECORDS SUMMARY | ~2019-12-15 | XMS | Encounter Summary ---
Demographics + + + | Address | [address] | | | [place] [address] | + + + | Home Phone | | + + + | Preferred Language | Unknown | + + + | Marital Status | Single | + + + | Buddhism Affiliation | Unknown | + + + | Race | Unknown | + + + | Ethnic Group | Unknown | + + + Author + + + | Author | [facility] | | | and Edana | + + + | Organization | [facility] | | | and Edana [...] Team Providers + +------+ + | Care Continuous Dryout Operator Helper Name | Role | Phone | + +------+ + | Gaetano Candelaria MD | PCP | | + +------+ + Encounter Details +--------+ + + + + | Date | Type | Department | Care Team | Description | +--------+ + + + + | 09/02/ | Hospital | [facility] | Conversion | Incidental pulmonary | | 2018 | Encounter | [facility] [address] | Transaction, | nodule, greater | | | | [address] | Provider Unknown | than or equal to 8mm | | | | [place] | [phone] | | | | | [address] | | | | | | [phone] | Aaliyah Perea | | | | | | MD Cristina [address] | | | | | | [address] | | | | | | [place] [address] | | | | | | [phone] | | | | | | | [...] At | + + + | DIONY [facility] [address] CHEST [...] Conversion - 03/11/2019 7:03 AM PDT [facility] | | FemaleCT CHEST WO CONTRAST09/02/2017 [...]
--- OUTSIDE RECORDS SUMMARY | ~2019-12-15 | XMS | Encounter Summary ---
Demographics + + + | Address | [address] | | | [place] [address] | + + + | Home Phone | | + + + | Preferred Language | Unknown | + + + | Marital Status | Single | + + + | Orthodoxy Affiliation | Unknown | + + + | Race | Unknown | + + + | Ethnic Group | Unknown | + + + Author + + + | Author | [facility] | | | and Edana | + + + | Organization | [facility] | | | and Edana [...] Team Providers + +------+ + | Care Candle Maker Name | Role | Phone | + [...] or equal to | EUNICE E | [address] | | | | | 8mm | [place] | Phone: | | | | | Procedures | [address] | [phone] | | | | | CT Chest wo | Phone: | Fax: | | | | | Contrast | [phone] | [phone] | | | | | | Fax: | | | | | | | [phone] | | +--------+--------+ + + + + Reason for Visit +--------+ + | Reason | Comments | +--------+ + | Other | | +--------+ + Encounter Details +--------+ + + + + | Date | Type | Department | Care Team | Description | +--------+ + + + + | 03/25/ | Telephone | [facility] | Krystin Tracy RN | Other | | 2018 | | PULMONOLOGY [address] | | | | | | [address] | | | | | | [facility] [place] | | | | | | [address] | | | | | | [phone] | | | +--------+ + + + [...]
--- OUTSIDE RECORDS SUMMARY | ~2019-12-15 | XMS | Clinical Summary ---
Demographics + + + | Address | [address] | | | [place] [address] | + + + | Home Phone | | + + + | Preferred Language | Unknown | + + + | Marital Status | Single | + + + | Christian Affiliation | Unknown | + + + | Race | Unknown | + + + | Ethnic Group | Unknown | + + + Author + + + | Author | [facility] | | | and Edana | + + + | Organization | [facility] | | | and Edana [...] Team Providers + +------+ + | Care Cattle Feeder Name | Role | Phone | + +------+ + | Bridger Esposito MD | PCP | Unavailable | + +------+ + Allergies + + [...] | | | + + + +---------+------+------+-------+ Active Problems [...] the left | | + + + Immunizations + + + + | Name [...] | | | Dtap/Tdap/Td (1 - | 3 | | | | Tdap) | | [...] | | + + + + + Results Not on filefrom Last 3 Months Insurance + +--------+ +--------+ +---------+--------+ | Payer | Benefi | Subscriber | Effect | Phone | Address | Type | | | t Plan | ID | elvi | | | | | | / | | Dates | | | | | | Group | | | | | | + +--------+ +--------+ +---------+--------+ | MEDICARE | MEDICA | [id number] | 09/27/19 | [phone] | | Medica | | | RE | | 09-Pre | 5 | | re | | | PART A | | sent | | | | | | AND B | | | | | | + +--------+ +--------+ +---------+--------+ | MEDICAID [place] | MEDICA | [id number] | 06/16/ | [phone] | | Medica [...] Person | Self | [birth year] | | [address] | | | al/Fam | | 1960 | [phone] | [place] [address] | | | fernando | | | 6 (Home) | | + +--------+ +--------+ + + | Diony Salinas | Person | Self | [birth year] | | [address] | | | al/Fam | | 1960 | [phone] | [place] [address] | | | fernando | | | 6 (Home) | | + +--------+ +--------+ + + Advance Directives + + + + + | Type | Date Recorded | Patient | Explanation | | | | Truck Trailer Final Inspector | | + + + + + | Power of | | | | | Bag Making Machine Operator | | | | + + + + + | Advance | | | | | Directive | | | | + + + + +
--- OUTSIDE RECORDS SUMMARY | ~2019-12-15 | XMS | Encounter Summary ---
Demographics + + + | Address | [address] | | | [place] [address] | + + + | Home Phone | | + + + | Preferred Language | Unknown | + + + | Marital Status | Single | + + + | Mosque Affiliation | Unknown | + + + | Race | Unknown | + + + | Ethnic Group | Unknown | + + + Author + + + | Author | [facility] | | | and Edana | + + + | Organization | [facility] | | | and Edana | [...] Team Providers + +------+ + | Care Dental Associate Name | Role | Phone | + +------+ + | Gaetano Candelaria MD | PCP | | + +------+ + Encounter Details +--------+ + + + + | Date | Type | Department | Care Team | Description | +--------+ + + + + | 02/26/ | Hospital | [facility] | Conversion | Incidental pulmonary | | 2018 | Encounter | [facility] [address] | Transaction, | nodule, greater | | | | [address] | Provider Unknown | than or equal to 8mm | | | | [place] | [phone] | | | | | [address] | | | | | | [phone] | Aaliyah Perea | | | | | | MD [address]ina [address] | | | | | | [address] | | | | | | [place] [address] | | | | | | [phone] | | | | | | | [...] Conversion - 03/11/2019 7:03 AM PDT [facility] | | FemaleCT CHEST WO CONTRAST02/26/2018 [...]
--- OUTSIDE RECORDS SUMMARY | ~2019-12-15 | XMS | Clinical Summary ---
Demographics + + + | Address | [address] | | | [place] [address] | + + + | Home Phone | | + + + | Preferred Language | Unknown | + + + | Marital Status | Legally | + + + | Jewish Affiliation | 1013 | + + + | Race | Unknown | + + + | Ethnic Group | Unknown | + + + Author + + + | Author | [facility] (Historical as of | | | 03-14-19) | + + + | Organization | [facility] (Historical as of | | | 03-14-19) [...] [place] | | | | | [address] | | + + + + + | Kurtis Abbasi | ECON | Unknown | | + + + + + Care Team Providers + +------+ + | Care Data Warehousing Architect Name | Role | Phone | + [...] +------+-------+ + | MEDICARE | MEDICA | [id number] | | | [address] | | | RE | | | | [place] [address] | | | IP-OP | | | | | + +--------+ +------+-------+ + | MEDICAID | MEDICA | [id number] | | | [address] | | | ID | | | | [place], [place] | | | [place] | | | | [address] | + +--------+ +------+-------+ + + +--------+ +--------+ + + | Guarantor Name | Accoun | Relation to | Date | Phone | Billing Address | | | t Type | Patient | of | | | | | | | | | | + +--------+ +--------+ + + | DIONY SALINAS | Person | Self | [birth year] | Home: | [address] | | | al/Bull | | 1960 | [phone] | [place] [address] | | | [place] | | | [address] | | + +--------+ +--------+ + +
--- OUTSIDE RECORDS SUMMARY | ~2019-12-15 | XMS | Encounter Summary ---
Demographics + + + | Address | [address] | | | [place] [address] | + + + | Home Phone | | + + + | Preferred Language | Unknown | + + + | Marital Status | Single | + + + | Nondenominational Affiliation | Unknown | + + + | Race | Unknown | + + + | Ethnic Group | Unknown | + + + Author + + + | Author | [facility] | | | and Edana | + + + | Organization | [facility] | | | and Edana [...] Team Providers + +------+ + | Care Cloth Winder Machine Operator Name | Role | Phone | + +------+ + | Gaetano Candelaria MD | PCP | | + +------+ + Encounter Details +--------+ + + + + | Date | Type | Department | Care Team | Description | +--------+ + + + + | 06/05/ | Hospital | [facility] | Conversion | Incidental pulmonary | | 2017 | Encounter | [facility] | Transaction, | nodule, greater | | | | MEDICINE 945 | Provider Unknown | than or equal to 8mm | | | | [address] | [phone] | | | | | [place] | | | | | | [address] | Aaliyah Perea | | | | | [phone] | MD [address]ina [address] | | | | | | [address] | | | | | | [place] [address] | | | | | | [phone] | | | | | | | [...]
--- OUTSIDE RECORDS SUMMARY | ~2019-12-15 | XMS | Encounter Summary ---
Demographics + + + | Address | [address] | | | [place] [address] | + + + | Home Phone | | + + + | Preferred Language | Unknown | + + + | Marital Status | Single | + + + | Holiness Affiliation | Unknown | + + + | Race | Unknown | + + + | Ethnic Group | Unknown | + + + Author + + + | Author | [facility] | | | and Edana | + + + | Organization | [facility] | [...] Team Providers + +------+ + | Care Chrome Plater Name | Role | Phone | + +------+ + | Gaetano Candelaria MD | PCP | | + +------+ + Encounter Details +--------+ + + + + | Date | Type | Department | Care Team | Description | +--------+ + + + + | 09/02/ | Hospital | [facility] | Conversion | Incidental pulmonary | | 2018 | Encounter | [facility] [address] | Transaction, | nodule, greater | | | | [address] | Provider Unknown | than or equal to 8mm | | | | [place] | [phone] | | | | | [address] | | | | | | [phone] | Aaliyah Perea | | | | | | MD [address] | | | | | | [address] | | | | | | [place] [address] | | | | | | [phone] | | | | | | | [...] At | + + + | DIONY [facility] [address] CHEST WO [...] Conversion - 03/11/2019 7:03 AM PDT [facility] | | FemaleCT CHEST WO CONTRAST09/02/2017 [...]
--- OUTSIDE RECORDS SUMMARY | ~2019-12-15 | XMS | Encounter Summary ---
Demographics + + + | Address | [address] | | | [place] [address] | + + + | Home Phone | | + + + | Preferred Language | Unknown | + + + | Marital Status | Single | + + + | Scientology Affiliation | Unknown | + + + | Race | Unknown | + + + | Ethnic Group | Unknown | + + + Author + + + | Author | [facility] | | | and Edana | + + + | Organization | [facility] | | | and [...] Team Providers + +------+ + | Care Helminthologist Name | Role | Phone | + [...] or equal to | EUNICE E | [address] | | | | | 8mm | HARDAWAY MD | Phone: | | | | | Procedures | [address] | [phone] | | | | | CT Chest wo | Phone: | Fax: | | | | | Contrast | [phone] | [phone] | | | | | | Fax: | | | | | | | [phone] | | +--------+--------+ + + + + Reason for Visit +--------+ + | Reason | Comments | +--------+ + | Other | | +--------+ + Encounter Details +--------+ + + + + | Date | Type | Department | Care Team | Description | +--------+ + + + + | 03/25/ | Telephone | [facility] | Krystin Tracy RN | Other | | 2018 | | PULMONOLOGY [address] | | | | | | [address] | | | | | | [facility] [place] | | | | | | [address] | | | | | | [phone] | | | +--------+ + + + [...]
--- OUTSIDE RECORDS SUMMARY | ~2019-12-15 | XMS | Encounter Summary ---
Demographics + + + | Address | [address] | | | [place] [address] | + + + | Home Phone | | + + + | Preferred Language | Unknown | + + + | Marital Status | Single | + + + | Bahai Affiliation | Unknown | + + + | Race | Unknown | + + + | Ethnic Group | Unknown | + + + Author + + + | Author | [facility] | | | and Edana | + + + | Organization | [facility] | | [...] Team Providers + +------+ + | Care Collar Folder Operator Name | Role | Phone | [...] [place], [place] | | | | | [place] | [facility], [place] | [address] Phone: | | | | | &/SENS 1-2 | [address] | [phone] | | | | | NRV CNDJ | Phone: | Fax: | | | | | PRECONF | [phone] | [phone] | | | | | [place] | Fax: | | | | | | NCS-right | [phone] | | | | | | upper [...] and mild on | | | | [address] | | the left (Primary | | | | [phone] | | Dx) | +--------+ + + [...] - 04/05/2014 6:46 PM PDT [facility] Musculoskeletal, Sports and Spine, Physiatry [address] [address] Test Date: 04/05/2014 Patient Name: Diony Salinas : 1960 Physician: David Hollingsworth MD MR #: [id number] Sex: Female Referring Physician: Bridger Esposito MD [...] (%) Site1 Site2 L Jorge (m/s) R Joreg (m/s) L-R Jorge (m/s) Radial Anti Sensory [...] hesitate to call. David Hollingsworth MD Fellow, [employer]. documented [...]
--- OUTSIDE RECORDS SUMMARY | ~2019-12-15 | XMS | Clinical Summary ---
Demographics + + + | Address | [address] | | | [place] [address] | + + + | Home Phone | | + + + | Preferred Language | Unknown | + + + | Marital Status | Single | + + + | Mormonism Affiliation | Unknown | + + + | Race | Unknown | + + + | Ethnic Group | Unknown | + + + Author + + + | Author | [facility] | | | and Edana | + + + | Organization | [facility] | | | and [...] Team Providers + +------+ + | Care Front Office Supervisor Name | Role | Phone | [...] +--------+ +---------+--------+ | MEDICARE | MEDICA | [id number] | 09/27/19 | [phone] | | Medica | | | RE | | 09-Pre | 5 | | re | | | PART A | | sent | | | | | | AND B | | | | | | + +--------+ +--------+ +---------+--------+ | MEDICAID [place] | MEDICA | [id number] | 06/16/ | [phone] | | Medica [...] Person | Self | [birth year] | | [address] | | | al/Fam | | 1960 | [phone] | [place] [address] | | | fernando | | | 6 (Home) | | + +--------+ +--------+ + + | Diony Salinas | Person | Self | [birth year] | | [address] | | | al/Fam | | 1960 | [phone] | [place] [address] | | | fernando | | | 6 (Home) | | + +--------+ +--------+ + + Advance Directives + + + + + | Type | Date Recorded | Patient | Explanation | | | | Track Machine Operator Repairer | | + + + + + | Power of | | | | | Scratch Polisher | | | | + + + + + | Advance | | | | | Directive | | | | + + + + +
--- OUTSIDE RECORDS SUMMARY | ~2019-12-15 | XMS | Encounter Summary ---
Demographics + + + | Address | [address] | | | [place] [address] | + + + | Home Phone | | + + + | Preferred Language | Unknown | + + + | Marital Status | Single | + + + | Adventist Affiliation | Unknown | + + + | Race | Unknown | + + + | Ethnic Group | Unknown | + + + Author + + + | Author | [facility] | | | and Edana | + + + | Organization | [facility] | | | and Edana [...] Team Providers + +------+ + | Care Reacher Name | Role | Phone | + [...] | | | | | Incidental | [facility] | | | | | pulmonary | MD Cristina | SLEEP | | | | | nodule, | [address] | DISORDERS LAB | | | | | greater than | [address] | [address] | | | | | or equal to | EUNICE E | [place] | | | | | 8mm | [place] | [place], [place] | | | | | Procedures | [address] | [address] | | | | | Pulmonary | Phone: | Phone: | | | | | function | [phone] | [phone] | | | | | test | Fax: | Fax: | | | | | | [phone] | [phone] | + +--------+ + + + + Encounter Details +--------+---------+ + + + | Date | Type | Department | Care Team | Description | +--------+---------+ + + + | 06/30/ | Office | [facility] | Eliazar, | Incidental pulmonary | | 2019 | Visit | PULMONOLOGY [address] | Aaliyah Evans, | nodule, greater | | | | [address] | MD [address] | than or equal to 8mm | | | | [place] | [place], | (Primary Dx); | | | | [address] | [place] [address] | History of breast | | | | [phone] | [phone] | cancer; Personal | | | | [...] only fol lows with her Oncologist in [facility] every year. 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 ACTIVITIES OF DAILY LIVING: Independent without difficulty. [...] were also smokers. 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 Immanuel monteiro was raised in [place], lived in [facility] for 2 years, and previous to that, was in [facility] and for 29 years. She has [...] still is in remission. Her Oncologist in [place] has retired, and so I have encouraged [...] Perea MD Pulmonary and Critical Care Medicine [facility]/[address] , [place] [address] documente d in this encounter Plan of [...]
--- OUTSIDE RECORDS SUMMARY | ~2019-12-15 | XMS | Encounter Summary ---
Demographics + + + | Address | [address] | | | [place] [address] | + + + | Home Phone | | + + + | Preferred Language | Unknown | + + + | Marital Status | Single | + + + | Jewish Affiliation | Unknown | + + + | Race | Unknown | + + + | Ethnic Group | Unknown | + + + Author + + + | Author | [facility] | | | and Edana | + + + | Organization | [facility] | | | and [...] Team Providers + +------+ + | Care Evp Of Products & [employer] Founder Name | Role | Phone | + +------+ + | Gaetano Candelaria MD | PCP | | + +------+ + Encounter Details +--------+ + + + + | Date | Type | Department | Care Team | Description | +--------+ + + + + | 05/31/ | Hospital | [facility] | Conversion | Incidental pulmonary | | 2017 | Encounter | [facility] CT 945 | Transaction, | nodule, greater | | | | [address] | Provider Unknown | than or equal to 8mm | | | | [place] | [phone] | | | | | [address] | | | | | | [phone] | Aaliyah Perea | | | | | | MD Cristina [address] | | | | | | [address] | | | | | | [place] [address] | | | | | | [phone] | | | | | | | [...] DIONY [facility] CT CHEST WO CONTRAST HISTORY: [...] Conversion - 03/11/2019 10:55 PM PDT [facility] | | HISTORY:Incidental pulmonary [...]
--- OUTSIDE RECORDS SUMMARY | ~2019-12-15 | XMS | Encounter Summary ---
Demographics + + + | Address | [address] | | | [place] [address] | + + + | Home Phone [...] + + + | Author | [facility] | | | and Edana | + + + | Organization | [facility] | | | and [...] Team Providers + +------+ + | Care Forest Fire Prevention Specialist Name | Role | Phone | + +------+ + | Gaetano Candelaria MD | PCP | | + +------+ + Encounter Details +--------+ + + + + | Date | Type | Department | Care Team | Description | +--------+ + + + + | 02/26/ | Hospital | [facility] | Conversion | Incidental pulmonary | | 2018 | Encounter | [facility] CT 945 | Transaction, | nodule, greater | | | | [address] | Provider Unknown | than or equal to 8mm | | | | [place] | [phone] | | | | | [address] | | | | | | [phone] | Aaliyah Perea | | | | | | MD [address]ina [address] | | | | | | [address] | | | | | | [place] [address] | | | | | | [phone] | | | | | | | [...] Conversion - 03/11/2019 7:03 AM PDT D[facility][birth year]58[facility] | | FemaleCT CHEST WO CONTRAST02/26/2018 [...]
--- OUTSIDE RECORDS SUMMARY | ~2019-12-15 | XMS | Encounter Summary ---
Demographics + + + | Address | [address] | | | [place] [address] | + + + | Home Phone | | + + + | Preferred Language | Unknown | + + + | Marital Status | Single | + + + | Presybeterian Affiliation | Unknown | + + + | Race | Unknown | + + + | Ethnic Group | Unknown | + + + Author + + + | Author | [facility] | | | and Edana | + + + | Organization | [facility] | | | and Edana [...] Providers + +------+ + | Care Senior Management Consultant Name | Role | Phone | [...] [place], [place] | | | | | [place] | [facility] [place] | [address] Phone: | | | | | &/SENS 1-2 | [address] | [phone] | | | | | NRV CNDJ | Phone: | Fax: | | | | | PRECONF | [phone] | [phone] | | | | | [place] | Fax: | | | | | | NCS-right | [phone] | | | | | | upper [...] and mild on | | | | [address] | | the left (Primary | | | | [phone] | | Dx) | +--------+ + + [...] Hollingsworth MD - 04/05/2014 6:46 PM PDT [facility] Musculoskeletal, Sports and Spine, Physiatry [address] [address] Test Date: 04/05/2014 Patient Name: Diony Salinas : 1960 Physician: David Hollingsworth MD MR #: [id number] Sex: Female Referring Physician: Bridger Esposito MD [...] hesitate to call. David Hollingsworth MD Fellow, [place] [employer]. documented [...]
--- OUTSIDE RECORDS SUMMARY | ~2019-12-15 | XMS | Encounter Summary ---
Demographics + + + | Address | [address] | | | [place] [address] | + + + | Home Phone | | + + + | Preferred Language | Unknown | + + + | Marital Status | Single | + + + | Rastafarian Affiliation | Unknown | + + + | Race | Unknown | + + + | Ethnic Group | Unknown | + + + Author + + + | Author | [facility] | | | and Edana | + + + | Organization | [facility] | | | and [...] Team Providers + +------+ + | Care Inspector Salvage Name | Role | Phone | + [...] | | | | | Incidental | [facility] | | | | | pulmonary | MD Cristina | SLEEP | | | | | nodule, | [address] | DISORDERS LAB | | | | | greater than | DMITRIY [address]ERNA[address]O | [address] | | | | | or equal to | [address] | MANISHA NAILS | | | | | 8mm | [place] | [place], [place] | | | | | Procedures | [id number] | [address] | | | | | Pulmonary | Phone: | Phone: | | | | | function | [phone] | [phone] | | | | | test | Fax: | Fax: | | | | | | [phone] | [phone] | + +--------+ + + + + Encounter Details +--------+---------+ + + + | Date | Type | Department | Care Team | Description | +--------+---------+ + + + | 06/30/ | Office | [facility] | Eliazar, | Incidental pulmonary | | 2019 | Visit | PULMONOLOGY 1100 | Aaliyah Evans, | nodule, greater | | | | DMITRIY LIMON | MD [address] | than or equal to 8mm | | | | [place] | [place], | (Primary Dx); | | | | [address] | [place] [address] | History of breast | | | | [phone] | [phone] | cancer; Personal | | | | [...] only fol lows with her Oncologist in [facility] every year. 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 ACTIVITIES OF DAILY LIVING: Independent without difficulty. [...] were also smokers. 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 Immanuel monteiro was raised in [place], lived in [facility] for 2 years, and previous to that, was in [facility] and for 29 years. She has no [...] still is in remission. Her Oncologist in [place] has retired, and so I have encouraged [...] Perea MD Pulmonary and Critical Care Medicine [facility]/[address] , [place] [address] documente d in this encounter Plan of [...]
--- OUTSIDE RECORDS SUMMARY | ~2019-12-15 | XMS | Encounter Summary ---
Demographics + + + | Address | [address] | | | [place] [address] | + + + | Home Phone | | + + + | Preferred Language | Unknown | + + + | Marital Status | Single | + + + | Mandaeism Affiliation | Unknown | + + + | Race | Unknown | + + + | Ethnic Group | Unknown | + + + Author + + + | Author | [facility] | | | and Edana | + + + | Organization | [facility] | | | and Edana [...] Team Providers + +------+ + | Care Baker Bench Name | Role | Phone | + +------+ + | Gaetano Candelaria MD | PCP | | + +------+ + Encounter Details +--------+ + + + + | Date | Type | Department | Care Team | Description | +--------+ + + + + | 05/31/ | Hospital | [facility] | Conversion | Incidental pulmonary | | 2017 | Encounter | [facility] [address] | Transaction, | nodule, greater | | | | [address] | Provider Unknown | than or equal to 8mm | | | | [place] | [phone] | | | | | [address] | | | | | | [phone] | Aaliyah Perea | | | | | | MD Cristina [address] | | | | | | [address] | | | | | | [place] [address] | | | | | | [phone] | | | | | | | [...] At | + + + | [facility] CT CHEST WO CONTRAST HISTORY: Incidental [...] Conversion - 03/11/2019 10:55 PM PDT [facility] | | [...]
--- OUTSIDE RECORDS SUMMARY | ~2019-12-15 | XMS | Clinical Summary ---
Demographics + + + | Address | [address] | | | [place] [address] | + + + | Home Phone | | + + + | Preferred Language | Unknown | + + + | Marital Status | Legally | + + + | Methodist Affiliation | 1013 | + + + | Race | Unknown | + + + | Ethnic Group | Unknown | + + + Author + + + | Author | [facility] (Historical as of | | | 03-14-19) | + + + | Organization | [facility] (Historical as of | | | 03-14-19) [...] [place] | | | | | [address] | | + + + + + | Kurtis Abbasi | ECON | Unknown | | + + + + + Care Team Providers + +------+ + | Care Electric Knife Operator Name | Role | Phone | [...] +------+-------+ + | MEDICARE | MEDICA | [id number] | | | [address] | | | RE | | | | [place] [address] | | | IP-OP | | | | | + +--------+ +------+-------+ + | MEDICAID | MEDICA | [id number] | | | [address] | | | [place] | | | | [place], [place] | | | [place] | | | | [address] | + +--------+ +------+-------+ + + +--------+ +--------+ + + | Guarantor Name | Accoun | Relation to | Date | Phone | Billing Address | | | t Type | Patient | of | | | | | | | | | | + +--------+ +--------+ + + | DIONY SALINAS | Person | Self [birth year] | Home: | [address] | | | [place] | | 1960 | [phone] | [place] [address] | | | fernando | | | [phone] | | + +--------+ +--------+ + +
--- OUTSIDE RECORDS SUMMARY | ~2019-12-15 | XMS | Encounter Summary ---
Demographics + + + | Address | [address] | | | [place] [address] | + + + | Home Phone [...] | Author | [facility] | | | and Edana | + + + | Organization | [facility] [...] Team Providers + +------+ + | Care Director Business Systems Name | Role | Phone | + +------+ + | Gaetano Candelaria MD | PCP | | + +------+ + Encounter Details +--------+ + + + + | Date | Type | Department | Care Team | Description | +--------+ + + + + | 02/23/ | Orders Only | [facility] | Provider, | | | 2018 | | SYSTEM GENERIC OP | MD Lizeth [address] | | | | | CONVERSION [address] | Elizabeth JANSEN | | | | | [address] [place], [place] | [place] [address] | | | | | [address] | | | | | | [phone] | | | +--------+ + + + [...]
--- OUTSIDE RECORDS SUMMARY | ~2019-12-15 | XMS | Encounter Summary ---
Demographics + + + | Address | [address] | | | [place] [address] | + + + | Home Phone [...] + + + | Author | [facility] | | | and Edana | + + + | Organization | [facility] | | | [...] Team Providers + +------+ + | Care Juvenile Court Judge Name | Role | Phone | + [...] | 03/24/ | Telephone | [facility] | Eliazar, | Other (Schedule | | 2019 | | PULMONOLOGY [address] | Aaliyahfrancisca Evans, | follow up & order | | | | DMITRIY LIMON | MD [address] | | | | [place], [place] | [place] [address] [place], | | | | | [address] | [place] [address] | | | | | [phone] | [phone] | | | | | | | [...]
[~2019-12-15 20:29] MED LIST changes: +CELECOXIB100 MG PO; +CIPRO500 MG PO; +LEVAQUIN500 MG PO; +PERCOCET 5-3251 EACH PO
--- OUTSIDE RECORDS SUMMARY | 2019-12-15 20:32 | XMS ---
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 E.Efrem VISIT COUNT (12 MO.) 3 OLIVIA Abrams TOTAL 3 NOTE: Visits indicate total known visits. 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
== END 2019-12-15 20:52 | disposition left against medical advice (07) ==
LOC: ED 20:29
DX: Z53.21 Procedure and treatment not carried out due to patient leaving prior to being seen by health care provider (principal)

== ENCOUNTER 2020-01-04 16:56 | Emergency (ER) | payer MEDICARE, OTHER ==
[~2020-01-04] VITALS: Ht 165.1 cm; Wt 61.7 kg
--- OUTSIDE RECORDS SUMMARY | ~2020-01-04 | XMS | Encounter Summary ---
Demographics + + + | Address | [address] | | | [place] [address] | + + + | Home Phone | | + + + | Preferred Language | Unknown | + + + | Marital Status | Single | + + + | Shinto Affiliation | Unknown | + + + | Race | Unknown | + + + | Ethnic Group | Unknown | + + + Author + + + | Author | [facility] | | | and Edana | + + + | Organization | [facility] | | | and Edana | [...] Team Providers + +------+ + | Care Hearing Aid Assembly Supervisor Name | Role | Phone | + +------+ + | Gaetano Candelaria MD | PCP | | + +------+ + Encounter Details +--------+ + + + + | Date | Type | Department | Care Team | Description | +--------+ + + + + | 02/26/ | Hospital | [facility] | Conversion | Incidental pulmonary | | 2018 | Encounter | [facility] [address] | Transaction, | nodule, greater | | | | [address] | Provider Unknown | than or equal to 8mm | | | | [place] | [phone] | | | | | [address] | | | | | | [phone] | Aaliyah Perea | | | | | | MD Cristina [address] | | | | | | [address] | | | | | | [place] [address] | | | | | | [phone] | | | | | | | | +--------+ + + + + Social History + +-------+ +--------+------+ | Tobacco Use | Types | Packs/Day | Years | Date | | | | | Used | | + +-------+ +--------+------+ | Current Every Day | | 0.5 | | | | Smoker | | | | | + +-------+ +--------+------+ + + +---------+ + | Alcohol Use [...] + + documented as of this encounter Plan of Treatment Not on filedocumented as of this encounter Procedures + +--------+ + + + | Procedure Name | Priori | Date/Time | Associated Diagnosis | Comments | | | ty | | | | + +--------+ + + + | CT CHEST WO CONTRAST | Routin | 02/26/2018 | | Results for this | | | e | 2:13 PM | | procedure are in the | | | | PDT | | results section. | + +--------+ + + + documented in this encounter Results CT Chest wo Contrast (02/26/2018 2:13 PM PDT) + + | Specimen | + + | | + + + + + | Impressions | Performed At | + + + | 1. Unchanged pulmonary lung nodules. Unchanged scarring of the | | | left lung apex. Unchanged scarring/consolidation of the anterior left | | | upper lobe. 2. No acute abnormality of the visualized portions of | | | the upper abdomen. Electronically signed by Alexis Steele MD on | | | 02/26/2018 3:49 PM | | + + + + + + | Narrative | Performed At | + + + | DIONY SALINAS [address] CHEST WO CONTRAST | | | 02/26/2018 2:13 PM HISTORY: Pulmonary nodules. COMPARISON: | | | September 02, 2017 TECHNIQUE: CT scan of the chest without contrast. | | | 5-mm thick helically acquired axial images were obtained in soft | | | tissue and lung algorithm. Automated exposure control done to minimize | | | dose. FINDINGS: The left apex scarring with associated | | | nodularity. The associated nodule measures 0.6 cm (10/08) and is | | | unchanged. Left upper lobe 3 mm nodule (/30) is unchanged. | | | Parenchymal scarring/consolidation of the anterior left upper lobe | | | (3/41) measuring 1.1 x 2.8 cm is similar to the prior exam. | | | Platelike atelectasis at the right lung base. 3 mm unchanged | | | nodule of the right upper lobe (/66). Bilateral breast implants. | | | Left axillary roly dissection with residual surgical clips. | | | Thyroid gland is normal. No supraclavicular adenopathy. No right | | | axillary adenopathy. Heart size is normal. No pericardial | | | effusion. No acute abnormality of the visualized portions of the | | | upper abdomen. Cholecystectomy. Prominent common bile duct which can | | | be seen in postcholecystectomy patients. No acute osseous | | | abnormality. Mild centrilobular emphysema of the lung apices. | | + + + + + | Procedure Note | + + | Marcus, Rad Conversion - 03/11/2019 7:03 AM PDT [id number] | | FemaleCT CHEST WO CONTRAST02/26/2018 2:13 PM HISTORY: Pulmonary nodules. COMPARISON: | | September 02, 2017 TECHNIQUE: CT scan of the chest without contrast. 5-mm thick helically | | acquired axial images were obtained in soft tissue and lung algorithm. Automated | | exposure control done to minimize dose. FINDINGS:The left apex scarring with associated | | nodularity. The associated nodule measures 0.6 cm (/) and is unchanged. Left upper | | lobe 3 mm nodule (3/30) is unchanged. Parenchymal scarring/consolidation of the anterior | | left upper lobe (3/41) measuring 1.1 x 2.8 cm is similar to the prior exam. Platelike | | atelectasis at the right lung base. 3 mm unchanged nodule of the right upper lobe | | (66). Bilateral breast implants. Left axillary roly dissection with residual surgical | | clips. Thyroid gland is normal. No supraclavicular adenopathy. No right axillary | | adenopathy. Heart size is normal. No pericardial effusion. No acute abnormality of the | | visualized portions of the upper abdomen. Cholecystectomy. Prominent common bile duct | | which can be seen in postcholecystectomy patients. No acute osseous abnormality. Mild | | centrilobular emphysema of the lung apices. IMPRESSION: 1. Unchanged pulmonary lung | | nodules. Unchanged scarring of the left lung apex. Unchanged scarring/consolidation of | | the anterior left upper lobe.2. No acute abnormality of the visualized portions of the | | upper abdomen. | | | |3 mm unchanged nodule of the right upper lobe (3/66). | | | |Bilateral breast implants. Left axillary roly dissection with residual surgical clips. | | | |Thyroid gland is normal. No supraclavicular adenopathy. No right axillary adenopathy. | | | |Heart size is normal. No pericardial effusion. | | | |No acute abnormality of the visualized portions of the upper abdomen. Cholecystectomy. Prom inent common bile duct which can be seen in postcholecystectomy patients. | | | |No acute osseous abnormality. | | | |Mild centrilobular emphysema of the lung apices. | | | |IMPRESSION: | |1. Unchanged pulmonary lung nodules. Unchanged scarring of the left lung apex. Unchanged s carring/consolidation of the anterior left upper lobe. | |2. No acute abnormality of the visualized portions of the upper abdomen. | | | | | + + documented in this encounter Visit Diagnoses + + | Diagnosis | + + | Incidental pulmonary nodule, greater than or equal to 8mm Solitary pulmonary nodule | + + documented in this encounter"
--- OUTSIDE RECORDS SUMMARY | ~2020-01-04 | XMS | Encounter Summary ---
Demographics + + + | Address | [address] | | | [place] [address] | + + + | Home Phone | | + + + | Preferred Language | Unknown | + + + | Marital Status | Single | + + + | Tenriism Affiliation | Unknown | + + + | Race | Unknown | + + + | Ethnic Group | Unknown | + + + Author + + + | Author | [facility] | | | and Edana | + + + | Organization | [facility] | | | and Edana | [...] Team Providers + +------+ + | Care Eyelet Riveter Name | Role | Phone | + +------+ + | Gaetano Candelaria MD | PCP | | + +------+ + Encounter Details +--------+ + + + + | Date | Type | Department | Care Team | Description | +--------+ + + + + | 09/02/ | Hospital | [facility] | Conversion | Incidental pulmonary | | 2018 | Encounter | [facility] CT [address] | Transaction, | nodule, greater | | | | [address] | Provider Unknown | than or equal to 8mm | | | | [place] | [phone] | | | | | [address] | | | | | | [phone] | Aaliyah Perea | | | | | | MD Cristina [address] | | | | | | [address] | | | | | | [place] [address] | | | | | | [phone] | | | | | | | [...] CT CHEST WO CONTRAST | Routin | 09/02/2017 | | Results for this | | | e | 2:36 PM | | procedure are in the | | | | PST | | results section. | + +--------+ + + + documented in this encounter Results CT Chest wo Contrast (09/02/2017 2:36 PM PST) + + | Specimen | + + | | + + + + + | Impressions | Performed At | + + + | 1. Stable fibrotic changes within the left upper lobe. 2. There | | | are a couple 3 mm pulmonary nodules, which are not significantly | | | changed. No significant new pulmonary nodules are identified. | | | | | + + + + + + | Narrative | Performed At | + + + | DIONY [facility] [address] CHEST WO CONTRAST | | | 09/02/2017 2:36 PM HISTORY: Left upper lobe thickening, radiation | | | fibrosis, active smoker, pulmonary nodule COMPARISON: 05/31/2017 | | | TECHNIQUE: CT scan of the chest without contrast. 5-mm thick | | | helically acquired axial images were obtained in soft tissue and lung | | | algorithm. Dose reduction techniques were used including automated | | | exposure control, iterative reconstruction technique, and/or | | | automated adjustable mAs based on patient size. FINDINGS: Minimal | | | nodular ground glass opacities within the right upper lobe have | | | resolved. Stable appearance of fibrosis with nodularity within the | | | anterior left apex (series 3, image 8). More inferiorly within the | | | left upper lobe, there is a stable appearance of the peripheral | | | pleural-based opacity (series 3, image 20) which measures 1.2 x 2.7 | | | cm. 3 mm left upper lobe nodule (series 3, image 19) is stable in | | | size. 3 mm right middle lobe nodule (series 3, image 31) is also | | | unchanged. No significant new pulmonary nodules are identified. | | | No significant pleural effusion. Left axillary surgical clips | | | are present. No bulky axillary, mediastinal, or hilar lymph nodes are | | | seen. 8 mm precarinal lymph node (series 2, image 24) is not | | | significantly changed in size and not enlarged by size criteria. | | | No acute osseous abnormalities. Bilateral breast implants noted. | | | Limited images of the upper abdomen demonstrate low-attenuation of the | | | liver with sparing within the region of the gallbladder fossa | | | consistent with fatty change. The patient is postcholecystectomy. The | | | visualized common bile duct appears mildly dilated, similar to the | | | prior exam. | | + + + + + | Procedure Note | + + | Marcus, Rad Conversion - 03/11/2019 7:03 AM PDT [facility] FemaleCT CHEST WO CONTRAST09/02/2017 2:36 PM HISTORY: Left upper lobe thickening, | | radiation fibrosis, active smoker, pulmonary nodule COMPARISON: 05/31/2017 TECHNIQUE: CT | | scan of the chest without contrast. 5-mm thick helically acquired axial images were | | obtained in soft tissue and lung algorithm. Dose reduction techniques were used | | including automated exposure control, iterative reconstruction technique, and/or | | automated adjustable mAs based on patient size. FINDINGS: Minimal nodular ground glass | | opacities within the right upper lobe have resolved. Stable appearance of fibrosis with | | nodularity within the anterior left apex (series 3, image 8). More inferiorly within the | | left upper lobe, there is a stable appearance of the peripheral pleural-based opacity | | (series 3, image 20) which measures 1.2 x 2.7 cm. 3 mm left upper lobe nodule (series 3, | | image 19) is stable in size. 3 mm right middle lobe nodule (series 3, image 31) is also | | unchanged. No significant new pulmonary nodules are identified. No significant pleural | | effusion. Left axillary surgical clips are present. No bulky axillary, mediastinal, or | | hilar lymph nodes are seen. 8 mm precarinal lymph node (series 2, image 24) is not | | significantly changed in size and not enlarged by size criteria. No acute osseous | | abnormalities. Bilateral breast implants noted. Limited images of the upper abdomen | | demonstrate low-attenuation of the liver with sparing within the region of the | | gallbladder fossa consistent with fatty change. The patient is postcholecystectomy. The | | visualized common bile duct appears mildly dilated, similar to the prior exam. | | IMPRESSION: 1. Stable fibrotic changes within the left upper lobe.2. There are a | | couple 3 mm pulmonary nodules, which are not significantly changed. No significant new | | pulmonary nodules are identified. | | PM | | | |No acute osseous abnormalities. Bilateral breast implants noted. | | | |Limited images of the upper abdomen demonstrate low-attenuation of the liver with sparing w ithin the region of the gallbladder fossa consistent with fatty change. The patient is postc holecystectomy. The visualized | |common bile duct appears mildly dilated, | | similar to the prior exam. | | | |IMPRESSION: | |1. Stable fibrotic changes within the left upper lobe. | |2. There are a couple 3 mm pulmonary nodules, which are not significantly changed. No sign ificant new pulmonary nodules are identified. | | | | | + + documented in this encounter Visit Diagnoses + + | Diagnosis | + + | Incidental pulmonary nodule, greater than or equal to 8mm Solitary pulmonary nodule | + + documented in this encounter"
--- OUTSIDE RECORDS SUMMARY | ~2020-01-04 | XMS | Encounter Summary ---
Demographics + + + | Address | [address] | | | [place] [address] | + + + | Home Phone | | + + + | Preferred Language | Unknown | + + + | Marital Status | Single | + + + | Roman Catholic Affiliation | Unknown | + + + | Race | Unknown | + + + | Ethnic Group | Unknown | + + + Author + + + | Author | [facility] | | | and Edana | + + + | Organization | [facility] | | | and Edana [...] Team Providers + +------+ + | Care Color Specialist Name | Role | Phone | + [...] + + + | Closed | | | Diagnoses | Eliazar, | [facility] | | | | | Incidental | Aaliyah | [facility] | | | | | pulmonary | MD Cristina | SLEEP | | | | | nodule, | [address] | DISORDERS LAB | | | | | greater than | DMITRIY FERNANDO | [address] | | | | | or equal to | [address] | [place] [place] | | | | | 8mm | [place] | [place] | | | | | Procedures | [address] | [address] | | | | | Pulmonary | Phone: | Phone: | | | | | function | [phone] | [phone] | | | | | test | Fax: | Fax: | | | | | | [phone] | [phone] | +--------+--------+ + + + + Encounter Details +--------+---------+ + + + | Date | Type | Department | Care Team | Description | +--------+---------+ + + + | 06/30/ | Office | [facility] | Eliazar, | Incidental pulmonary | | 2019 | Visit | PULMONOLOGY [address] | Aaliyah Evans, | nodule, greater | | | | DMITRIY LIMON | MD Stephanie [address] | than or equal to 8mm | | | | [place] | [place], | (Primary Dx); | | | | [address] | [place] [address] | History of breast | | | | [phone] | [phone] | cancer; Personal | | | | | | history of tobacco | | | | | | use, presenting | | | | | | hazards to health | +--------+---------+ + + + Social History + +-------+ [...] + + documented as of this encounter Last Filed Vital Signs + + + + + | Vital Sign | Reading | Time Taken | Comments | + + + + + | Blood Pressure | 98/59 | 06/30/2019 2:41 PM | | | | | PST | | + + + + + | Pulse | 67 | 06/30/2019 2:41 PM | | | | | PST | | + + + + + | Temperature | 36.5 C (97.7 F) | 06/30/2019 2:41 PM | | | | | PST | | + + + + + | Respiratory Rate | - | - | | + + + + + | Oxygen Saturation | 99% | 06/30/2019 2:41 PM | | | | | PST | | + + + + + | Inhaled Oxygen | - | - | | | Concentration | | | | + + + + + | Weight | 61.7 kg (136 lb) | 06/30/2019 2:41 PM | | | | | PST | | + + + + + | Height | - | - | | + + + + + | Body Mass Index | 22.63 | 06/11/2017 4:37 PM | | | | | PST | | + + + + + documented in this encounter Progress Notes Aaliyah Perea MD - 06/30/2019 2:30 PM PSTFormatting of this note might be d ifferkevin from the original. Subjective Patient ID: Diony Salinas is a 58 y.o. female with a history of breast cancer post b ilateral mastectomy, s/p chemo and radiation to the L breast, DJD, fibromyalgia, chronic manas n syndrome, active smoker, referred to us due to a SONAL ground glass nodule HPI Ms Salinas is a 56 yr old woman who was referred to us due to a SONAL GGO nodule measuring 4 cm with traction bronchiectasis. She received radiation to her L breast in 2001 when she wa s first diagnosed with breast cancer. She has been in remission since 2003, and she only fol lows with her Oncologist in [facility] every year. She has an occasional cough productive of clear sputum. She denies hemoptysis. She has no fevers, night sweats, chills or weight loss. She has dyspnea on exertion, but only when she is hurrying or doing more rigorous chores like va cuuming. She has chronic pains and has been on pain medications for a while now. She has florentin k pains which can limit her activities. She denies chest pains, orthopnea or PNDs. She feels that she is able to sleep well, and does not wake up feeling tired. She denies active aspir ation, or dysphagia. She does get reflux here and there, but she is not medicated for this. She has no pedal edema. She usually wakes up due to pains on her back at night. She denies a pneic events. Interval History Narrative/Comments: We have not seen her in more than a year. She has done relatively well , and has not had any issues with worsening dyspnea or recurrent cough. The patient reports the following: DYSPNEA: Denies being short of breath COUGH: Rare cough. Has had bronchitis a month ago, and this has resolved. ACUTE EXACERBATION: None EXPOSURES: Active smoker, half a pack a day. Has smoked for 32 years now. EXERCISE: No formal exercise but is active at work. Still manages [employer]. ACTIVITIES OF DAILY LIVING: Independent without difficulty. CONSTITUTIONAL SYMPTOMS: None SINO-NASAL SYMPTOMS: Occasional sino nasal congestion. REFLUX or REGURGITATION: Denies dysphagia, aspiration or reflux. SLEEP: Has slept generally well. Denies night time awakening. CHEST PAINS: None ORTHOPNEA OR PND (Paroxysmal Nocturnal Dyspnea): None PEDAL EDEMA: None OTHER SYMPTOMS: Has had arthralgias, and pain on R thumb base (recently had surgery for thi s). Also had a recent breast reconstruction revision which she healed from really well. Inhaler regimen includes: None Oxygen Use: None PAP therapy: None Other relevant medications: None Significant findings on testing: Awaiting official CT of the chest. SOCIAL HISTORY She is an active smoker, about 1/2 a pack a day, but was up to a pack a day for the past 30 years. Family is significant for lung cancer and emphysema in her father and grand father carlos de luna were also smokers. 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 Immanuel monteiro was raised in [place], lived in [facility] for 2 years, and previous to that, was in [facility] and for 29 years. She has no animals at home. The following elements of the patient's history were reviewed and updated as appropriate. Denise chaves are available elsewhere in the patient record. allergies, current medications, past fam fernando history, past medical history, past social history, past surgical history and problem li st Review of Systems Constitutional: Negative for fatigue, fever and unexpected weight change. HENT: Positive for congestion. Negative for sore throat, trouble swallowing and voice alfaro e. Respiratory: Positive for cough. Negative for apnea, choking, shortness of breath, wheezing and stridor. Cardiovascular: Negative for chest pain, palpitations and leg swelling. Gastrointestinal: Positive for diarrhea. Negative for abdominal pain, constipation, nausea and vomiting. Genitourinary: Negative for difficulty urinating. Musculoskeletal: Positive for arthralgias. Negative for back pain, gait problem, joint swel ling, myalgias and neck pain. Skin: Negative for rash. Neurological: Negative for dizziness. Psychiatric/Behavioral: Negative for sleep disturbance. All other systems reviewed and are negative. Past Medical History: Diagnosis Date Bilateral carpal tunnel syndrome - moderate on the rigth and mild on the left 04/05/2014 Breast cancer (HCC) 2003 Cholesteatoma right ear Chronic pain syndrome secondary to degenerative disk disease and fibromyalgia Colitis unspecified CREST syndrome (HCC) questionable, if anything, it would be incomplete per rheumatology.Rheumatology evaluation 2013 did not show rheumatoid arthritis or crest syndrome Depression Hypothyroid secondary to radiation Liver hemangioma stable on 2 CT's 2009 - benign Osteoporosis Rheumatoid arthritis (HCC) questionable- with chronic low back pain starting in 1990. Rheumatoid factor positive 09/14. Anti-CCP negative in 2009. Rheum eval 2009 didn't show clinical evidence of RA . Rheuma tology evaluation 2013 did not show rheumatoid arthritis or crest syndrome Past Surgical History: Procedure Laterality Date BREAST RECONSTRUCTION with implant removal and new implants put in 11/15/14 OTHER SURGICAL HISTORY OTHER SURGICAL HISTORY OTHER SURGICAL HISTORY OTHER SURGICAL HISTORY CHOLECYCTOSTOMY OTHER SURGICAL HISTORY 11/15/2014 TONSILLECTOMY AND ADENOIDECTOMY Objective BP 98/59 | Pulse 67 | Temp 36.5 C (97.7 F) (Oral) | Wt 61.7 kg (136 lb) | SpO2 99% | BMI 22.63 kg/m Physical Exam Vital signs reviewed. Oxygen saturation noted at 99% on ambient air GENERAL: pleasant, cooperative, oriented, not in distress HEENT: pink conjunctiva, anicteric sclerae, moist oral mucosae and without any lesions, nor mal appearing nasal mucosae; no JVD; MALAMPATTI 3; no thyromegaly; no cervicolymphadenopathi es CVS: PMI non displaced, NRRR, S1 and S2, no murmurs/gallops/rubs CHEST: Examination of the chest was unremarkable. There were no bony deformities, no asymme try, and no other abnormalities. LUNGS: Normal effort, Equal in expansion, resonant to percussion, clear and equal breath so unds, no wheezes/rales/rhonchi ABDOMEN: Flat abdomen, NABS, non-tender on palpation, Traube's space intact, liver span nor mal, no masses palpated EXTREMITIES: good distal pulses, no cyanosis, no edema, no clubbing, no nail abnormalities NEURO: awake and oriented, gait normal, no focal neurologic deficits LABORATORY AND IMAGING No PFT to review. CT of the chest as a lung screen done on March 14, 2017 reviewed. 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 Rule out malignancy. CT of the chest done on 05/31/17 reviewed independently. Impression 1. Cluster of nodular groundglass opacities in the right upper lobe. These are suspected to be inflammatory. 2. Combination of elongated nodular opacity, groundglass opacities and linear opacities i n the left upper lobe and a triangular opacity anteriorly in the left upper lobe. These are suspected to represent areas of postradiation changes. 3. Left upper lobe nodule measuring 3 mm in size. 4. Recommend follow-up chest CT examination in 3 months for the above-mentioned findings. PET CT done on 06/05/17 reviewed independently. Impression 1. The previously noted bilateral pulmonary findings appear unchanged. These areas demons trate minimal metabolic activity and feces SUVmax from 1.7 to 3.0. Follow-up chest CT examin ation in 3 months recommended. 2. No enlarged hypermetabolic lymph nodes noted within the neck, chest, abdomen and pelvi s. 3. Moderate pancreatic ductal dilatation is of uncertain etiology. Recommend correlation with MRI of the abdomen with and without contrast with pancreatic protocol and with MRCP for definitive assessment. CT of the chest done on 09/02/17 reviewed independently. Impression 1. Stable fibrotic changes within the left upper lobe. 2. There are a couple 3 mm pulmonary nodules, which are not significantly changed. No sig nificant new pulmonary nodules are identified Assessment /Plan 1. Incidental pulmonary nodule, greater than or equal to 8mm Ms Salinas is a 58 yr old woman who was found to incidentally have a SONAL nodule that is gr ound glass in appearance, and is associated with traction bronchiectasis, and is thought to be due to radiation fibrosis. Serial CTs in the past two years have not shown any progressio n in these changes. I am awaiting official result of imaging test done today. I have reviewe d this myself and has not observed any significant increase in size in these lesions. - Pulmonary function test; Future 2. History of breast cancer She still is in remission. Her Oncologist in [place] has retired, and so I have encouraged her to seek continuing Oncologic care in our area. Her PCP would be referring her to our On cology service. 3. Personal history of tobacco use, presenting hazards to health She has continued to smoke half a pack a day. I have emphasized importance of smoking cessa tion, especially in light of her breast cancer history, and family history of emphysema and lung cancer. I have once again requested for a PFT to help determine baseline lung function. Thank you for allowing us to participate in this patient's care. A return visit has been re quested/scheduled in one year for routine follow up. The patient was instructed to call our clinic for any questions, and for any concerns regarding worsening dyspnea, cough or change in sputum production. We will see the patient sooner than the recommended follow up date, if with any worsening of symptoms. Aaliyah Perea MD Pulmonary and Critical Care Medicine [facility]/[address] , [place] [address] documente d in this encounter Plan of Treatment + +------+--------+ + + | Name | Type | Priori | Associated Diagnoses | Order Schedule | | | | ty | | | + +------+--------+ + + | Pulmonary function | PFT | Routin | Incidental | Expected: | | test | | e | pulmonary nodule, | 07/01/2019, Expires: | | | | | greater than or | 06/30/2020 | | | | | equal to 8mm | | + +------+--------+ + + documented as of this encounter Visit Diagnoses + + | Diagnosis | + + | Incidental pulmonary nodule, greater than or equal to 8mm - Primary Solitary | | pulmonary nodule | + + | History of breast cancer Personal history of malignant neoplasm of breast | + + | Personal history of tobacco use, presenting hazards to health | + + documented in this encounter"
--- OUTSIDE RECORDS SUMMARY | ~2020-01-04 | XMS | Encounter Summary ---
Demographics + + + | Address | [address] | | | [place] [address] | + + + | Home Phone | | + + + | Preferred Language | Unknown | + + + | Marital Status | Single | + + + | Pentecostal Affiliation | Unknown | + + + | Race | Unknown | + + + | Ethnic Group | Unknown | + + + Author + + + | Author | [facility] | | | and Edana | + + + | Organization | [facility] | | | and Edana | [...] Team Providers + +------+ + | Care Dry Kiln Operator Name | Role | Phone | + [...] | DMITRIY FERNANDO | [facility] [place] | | | | | or equal to | [address] [address] | [address] | | | | | 8mm | [place] | Phone: | | | | | Procedures | [address] | [phone] | | | | | CT Chest wo | Phone: | Fax: | | | | | Contrast | [phone] | [phone] | | | | | | Fax: | | | | | | | [phone] | | +--------+--------+ + + + + Reason for Visit Diagnostic/Screening (Routine) +--------+--------+ + + + + | Status | Reason | Specialty | Diagnoses / | Referred By | Referred To | | | | | Procedures | Contact | Contact | +--------+--------+ + + + + | Closed | | Radiology | Diagnoses | Eliazar, | [facility] [address] | | | | | Incidental | Aaliyah | [address] | | | | | pulmonary | MD Cristina | DMITRIY FERNA[address] | | | | | nodule, | [address] | [address] | | | | | greater than | DMITRIY FERNANDO | [place], [place] | | | | | or equal to | [address] | [address] | | | | | 8mm | [place], [place] | Phone: | | | | | Procedures | [address] | [phone] | | | | | CT Chest wo | Phone: | Fax: | | | | | Contrast | [phone] | [phone] | | | | | | Fax: | | | | | | | [phone] | | +--------+--------+ + + + + Encounter Details +--------+ + + + + | Date | Type | Department | Care Team | Description | +--------+ + + + + | 06/30/ | Hospital | [facility] | Eliazar, | Incidental pulmonary | | 2019 | Encounter | [facility] [address] | Aaliyah Evans, | nodule, greater | | | | [address]RI[address] | [address] | than or equal to 8mm | | | | [place] | [place], | | | | | [address] | [place] [address] | | | | | [phone] | [phone] | | | | | | | [...]
--- OUTSIDE RECORDS SUMMARY | ~2020-01-04 | XMS | Encounter Summary ---
Demographics + + + | Address | [address] | | | [place] [address] | + + + | Home Phone | | + + + | Preferred Language | Unknown | + + + | Marital Status | Single | + + + | Amish Affiliation | Unknown | + + + | Race | Unknown | + + + | Ethnic Group | Unknown | + + + Author + + + | Author | [facility] | | | and Edana | + + + | Organization | [facility] | | | and Edana [...] Team Providers + +------+ + | Care Business Services Assistant Name | Role | Phone | + +------+ + | Gaetano Candelaria MD | PCP | | + +------+ + Reason for Visit + + + | Reason | Comments | + + + | Numbness | right hand middle three fingers | + + + | Wrist Pain | right wrist | + + + Service/Procedure (Routine) +--------+--------+ + + + + | Status | Reason | Specialty | Diagnoses / | Referred By | Referred To | | | | | Procedures | Contact | Contact | +--------+--------+ + + + + | Closed | | Physical | Diagnoses | | Lacinbblanca, | | | | Medicine and | Disturbance | Edel, | David Walker MD | | | | Rehabilitatio | of skin | David Walker MD | [address] | | | | n | sensation | [address] | [address] [place] | | | | | Procedures | [place] | [place], [place] | | | | | [place] | [facility], [place] | [address] Phone: | | | | | &/SENS 1-2 | [address] | [phone] | | | | | NRV CNDJ | Phone: | Fax: | | | | | PRECONF | [phone] | [phone] | | | | | [place] | Fax: | | | | | | NCS-right | [phone] | | | | | | upper | | | | | | | extremity, | | | | | | | pain and | | | | | | | numbness | | | | | | | referred by | | | | | | | Dr. Esposito | | | +--------+--------+ + + + + Encounter Details +--------+ + + + + | Date | Type | Department | Care Team | Description | +--------+ + + + + | 04/05/ | Procedure | [facility] | David Hollingsworth | Bilateral carpal | | 2013 | visit | PHYSIATRY [address] | TMD [address] | tunnel syndrome - | | | | [address] | [address] [place] | moderate on the | | | | [place] | [address] | rigth and mild on | | | | [address] | | the left (Primary | | | | [phone] | | Dx) | +--------+ + + + + Social History + +-------+ +--------+------+ | Tobacco Use | Types | Packs/Day | Years | Date | | | | | Used | | + +-------+ +--------+------+ | Current Every Day | | | | | | Smoker | | [...] + + + | Blood Pressure | 133/81 | 04/05/2014 10:09 AM | | | | | PDT | | + + + + + | Pulse | 65 | 04/05/2014 10:09 AM | | | | | PDT | | + + + + + | Temperature | - | - | | + + + + + | Respiratory Rate | - | - | | + + + + + | Oxygen Saturation | - | - | | + + + + + | Inhaled Oxygen | - | - | | | Concentration | | | | + + + + + | Weight | 57.6 kg (127 lb) | 04/05/2014 10:09 AM | | | | | PDT | | + + + + + | Height | 165.1 cm (5' 5") | 04/05/2014 10:09 AM | | | | | PDT | | + + + + + | Body Mass Index | 21.13 | 04/05/2014 10:09 AM | | | | | PDT | | + + + + + documented in this encounter Progress Notes David Hollingsworth MD - 04/05/2014 6:46 PM PDT [facility] Musculoskeletal, Sports and Spine, Physiatry [address] [address] Test Date: 04/05/2014 Patient Name: Diony Salinas : 1960 Physician: David Hollingsworth MD MR #: [id number] Sex: Female Referring Physician: Bridger Esposito MD HISTORY: The patient is a pleasant 53 year-old right-handed female who is being seen today at the request of Dr. Bridger Esposito for complaints of bilateral upper extremity numbness tingling and pain, right greater than left. She has had symptoms now for at least 5 years. She does wear a carpal tunnel splint on the right but still wakes up with numbness and manas n. The numbness is primarily in the 2nd-4th digits. She denies any significant neck pain o r radicular arm symptoms. She does have a history of breast cancer and hypothyroidism. She also has a history of rheumatoid arthritis. She denies any history of diabetes or alcohol a buse. Nerve Conduction Studies Anti Sensory Summary Table Site NR Peak (ms) Norm Peak (ms) P-T Amp (V) Norm P-T Amp Site1 Site2 Delta-P (ms) Dist (cm) Jorge (m/s) Norm Jorge (m/s) Left Radial Anti Sensory (Base 1st Digit) Wrist 2.1 <3.1 24.8 Wrist Base 1st Digit 2.1 0.0 Right Radial Anti Sensory (Base 1st Digit) Wrist 2.7 <3.1 17.4 Wrist Base 1st Digit 2.7 0.0 Motor Summary Table Site NR Onset (ms) Norm Onset (ms) O-P Amp (mV) Norm O-P Amp Site1 Site2 Delta-0 (ms) Dist (cm) Jorge (m/s) Norm Jorge (m/s) Left Median Motor (Abd Poll Brev) Wrist 3.6 <4.2 *4.7 >5 Elbow Wrist 3.4 18.0 53 >50 Elbow 7.0 3.5 Right Median Motor (Abd Poll Brev) Wrist *4.8 <4.2 *3.2 >5 Elbow Wrist 3.1 18.0 58 >50 Elbow 7.9 2.6 Left Ulnar Motor (Abd Dig Minimi) Wrist 2.8 <4.2 8.2 >3 B Elbow Wrist 2.6 17.0 65 >53 B Elbow 5.4 8.1 A Elbow B Elbow 1.7 10.0 59 >53 A Elbow 7.1 7.6 Right Ulnar Motor (Abd Dig Minimi) Wrist 2.9 <4.2 7.3 >3 B Elbow Wrist 2.7 17.0 63 >53 B Elbow 5.6 7.1 A Elbow B Elbow 1.6 10.0 62 >53 A Elbow 7.2 6.4 Comparison Summary Table Site NR Peak (ms) Norm Peak (ms) P-T Amp (V) Site1 Site2 Delta-P (ms) Norm Delta (ms) Left Median/Ulnar Palm Comparison (Wrist - 8cm) Median Palm 2.2 <2.2 64.7 Median Palm Ulnar Palm *0.5 <0.3 Ulnar Palm 1.7 <2.2 35.8 Right Median/Ulnar Palm Comparison (Wrist - 8cm) Median Palm *2.7 <2.2 20.0 Median Palm Ulnar Palm *0.9 <0.3 Ulnar Palm 1.8 <2.2 22.5 EMG Side Muscle Nerve Root Ins Act Fibs Psw Amp Dur Poly Recrt Int Pat Comment Right Deltoid Axillary C5-6 Nml Nml Nml Nml Nml 0 Nml Nml Right Biceps Musculocut C5-6 Nml Nml Nml Nml Nml 0 Nml Nml Right Triceps Radial C6-7-8 Nml Nml Nml Nml Nml 0 Nml Nml Right PronatorTeres Median C6-7 Nml Nml Nml Nml Nml 0 Nml Nml Right 1stDorInt Ulnar C8-T1 Nml Nml Nml Nml Nml 0 Nml Nml Nerve Conduction Studies Motor Left/Right Comparison Site L Lat (ms) R Lat (ms) L-R Lat (ms) L Amp (mV) R Amp (mV) L-R Amp (%) Site1 Site2 L Ve l (m/s) R Jorge (m/s) L-R Jorge (m/s) Median Motor (Abd Poll Brev) Wrist 3.6 *4.8 *1.2 *4.7 *3.2 31.9 Elbow Wrist 53 58 5 Elbow 7.0 7.9 0.9 3.5 2.6 25.7 Ulnar Motor (Abd Dig Minimi) Wrist 2.8 2.9 0.1 8.2 7.3 11.0 B Elbow Wrist 65 63 2 B Elbow 5.4 5.6 0.2 8.1 7.1 12.3 A Elbow B Elbow 59 62 3 A Elbow 7.1 7.2 0.1 7.6 6.4 15.8 Anti Sensory Left/Right Comparison Site L Lat (ms) R Lat (ms) L-R Lat (ms) L Amp (V) R Amp (V) L-R Amp (%) Site1 Site2 L Jorge (m/s) R Jorge (m/s) L-R Jorge (m/s) Radial Anti Sensory (Base 1st Digit) Wrist 2.1 2.7 0.6 24.8 17.4 29.8 Wrist Base 1st Digit Comparison Left/Right Comparison Site L Lat (ms) R Lat (ms) L-R Lat (ms) L Amp (V) R Amp (V) L-R Amp (%) Median/Ulnar Palm Comparison (Wrist - 8cm) Median Palm 2.2 *2.7 0.5 64.7 20.0 69.1 Ulnar Palm 1.7 1.8 0.1 35.8 22.5 37.2 NCV FINDINGS: Evaluation of the Left median motor nerve showed reduced amplitude. The Right median motor nerve showed prolonged distal onset latency and reduced amplitude. The Left median/ulnar ( palm) comparison nerve showed abnormal peak latency difference (Median Palm-Ulnar Palm). Th e Right median/ulnar (palm) comparison nerve showed prolonged distal peak latency (Median Pa lm) and abnormal peak latency difference (Median Palm-Ulnar Palm). All remaining nerves (as indicated in the preceding tables) were within normal limits. EMG FINDINGS: All examined muscles (as indicated in the preceding table) showed no evidence of electrical instability. IMPRESSION: There is electrodiagnostic evidence of median neuropathy at the wrists bilaterally. This i s consistent with a clinical diagnosis of carpal tunnel syndrome. The severity would be gra ded as moderate on the left and mild on the right. There was no electrodiagnostic evidence of ulnar neuropathy, peripheral neuropathy, cervica l radiculopathy or brachial plexopathy. We briefly discussed treatment options for this issue. She is still having symptoms even w ith the use of carpal tunnel splints. She will follow-up with her PCP to discuss the next s tep in her care. Thank you for allowing me to perform neurodiagnostic testing on your patient. If you have a ny further questions or comments, please do not hesitate to call. David Hollingsworth MD Fellow, [employer]. documented in th is encounter Plan of Treatment Not on filedocumented as of this encounter Visit Diagnoses + + | Diagnosis | + + | Bilateral carpal tunnel syndrome - moderate on the rigth and mild on the left - | | Primary Carpal tunnel syndrome | + + documented in this encounter
--- OUTSIDE RECORDS SUMMARY | ~2020-01-04 | XMS | Encounter Summary ---
Demographics + + + | Address | [address] | | | [place] [address] | + + + | Home Phone | | + + + | Preferred Language | Unknown | + + + | Marital Status | Single | + + + | Religion Affiliation | Unknown | + + + | Race | Unknown | + + + | Ethnic Group | Unknown | + + + Author + + + | Author | [facility] | | | and Edana | + + + | Organization | [facility] | | | and Edana [...] Team Providers + +------+ + | Care Low Altitude Air Defense Officer Name | Role | Phone | + [...] + + | 08/14/ | Telephone | [facility] | Eliazar, | Other | | 2020 | | PULMONOLOGY 1100 | Aaliyah Evans, | | | | | DM[address] LIMON | [address] | | | | | [facility] [place] | [place], | | | | | [address] | [place] [address] | | | | | [phone] | [phone] | | | | | | | [...]
--- OUTSIDE RECORDS SUMMARY | ~2020-01-04 | XMS | Encounter Summary ---
Demographics + + + | Address | [address] | | | [place] [address] | + + + | Home Phone | | + + + | Preferred Language | Unknown | + + + | Marital Status | Single | + + + | Cheondoism Affiliation | Unknown | + + + | Race | Unknown | + + + | Ethnic Group | Unknown | + + + Author + + + | Author | [facility] | | | and Edana | + + + | Organization | [facility] | | | and Edana [...] Team Providers + +------+ + | Care Full Time Babysitter Name | Role | Phone | + [...] Radiology | Diagnoses | Eliazar, | c Opi Ct | | | | | Incidental | Aaliyah | 945 | | | | | pulmonary | MD Cristina | [address] | | | | | nodule, | 1100 | [address] | | | | | greater than | [address] | [place] | | | | | or equal to | [place] [address] | [address] | | | | | 8mm | [place] | Phone: | | | | | Procedures | [address] | [phone] | | | | | CT Chest wo | Phone: | Fax: | | | | | Contrast | [phone] | [phone] | | | | | | Fax: | | | | | | | [phone] | | +--------+--------+ + + + + Reason for Visit +--------+ + | Reason | Comments | +--------+ + | Other | | +--------+ + Encounter Details +--------+ + + + + | Date | Type | Department | Care Team | Description | +--------+ + + + + | 03/25/ | Telephone | [facility] | Krystin Tracy RN | Other | | 2018 | | PULMONOLOGY 1100 | | | | | | [address] LIMON | | | | | | [facility] [place] | | | | | | [address] | | | | | | [phone] | | | +--------+ + + + [...] Not on filedocumented as of this encounter Results CT Chest wo Contrast [...] | | pulmonary nodule | + + documented in this encounter"
--- OUTSIDE RECORDS SUMMARY | ~2020-01-04 | XMS | Encounter Summary ---
Demographics + + + | Address | [address] | | | [place] [address] | + + + | Home Phone | | + + + | Preferred Language | Unknown | + + + | Marital Status | Single | + + + | Jainism Affiliation | Unknown | + + + | Race | Unknown | + + + | Ethnic Group | Unknown | + + + Author + + + | Author | [facility] | | | and Edana | + + + | Organization | [facility] | | | and [...] Team Providers + +------+ + | Care Quality Assurance Monitor Body Name | Role | Phone | + [...] + + | 08/14/ | Telephone | [facility] | Eliazar, | Other | | 2020 | | PULMONOLOGY 1100 | Aaliyah Evans, | | | | | DM[address]RI[address] LIMON | [address] | | | | | [place], [place] | [place], | | | | | [address] | [place] [address] | | | | | [phone] | [phone] | | | | | | | [...]
--- OUTSIDE RECORDS SUMMARY | ~2020-01-04 | XMS | Encounter Summary ---
Demographics + + + | Address | [address] | | | [place] [address] | + + + | Home Phone | | + + + | Preferred Language | Unknown | + + + | Marital Status | Single | + + + | Christianity Affiliation | Unknown | + + + | Race | Unknown | + + + | Ethnic Group | Unknown | + + + Author + + + | Author | [facility] | | | and dEana | + + + | Organization | [facility] | | | and [...] Team Providers + +------+ + | Care Photographic Colorist Name | Role | Phone | + [...] + + | 03/24/ | Telephone | [facility] | Eliazar, | Other (Schedule | | 2019 | | PULMONOLOGY 1100 | Aaliyahfrancisca Evans, | follow up & order | | | | [address]ON | MD [address] | [address] | | | | [place], [place] | [place], | | | | | [address] | [place] [address] | | | | | [phone] | | | | | | | [...]
--- OUTSIDE RECORDS SUMMARY | ~2020-01-04 | XMS | Encounter Summary ---
Demographics + + + | Address | [address] | | | [place] [address] | + + + | Home Phone | | + + + | Preferred Language | Unknown | + + + | Marital Status | Single | + + + | Gnosticism Affiliation | Unknown | + + + | Race | Unknown | + + + | Ethnic Group | Unknown | + + + Author + + + | Author | [facility] | | | and Edana | + + + | Organization | [facility] | | | and Edana [...] Providers + +------+ + | Care Master Lay Out Specialist Name | Role | Phone | + +------+ + | Gaetano Candelaria MD | PCP | | + +------+ + Encounter Details +--------+ + + + + | Date | Type | Department | Care Team | Description | +--------+ + + + + | 06/05/ | Hospital | [facility] | Conversion | Incidental pulmonary | | 2017 | Encounter | [facility] | Transaction, | nodule, greater | | | | MEDICINE 945 | Provider Unknown | than or equal to 8mm | | | | [address] | [phone] | | | | | [place] | | | | | | [address] | Aaliyah Perea | | | | | [phone] | MD Cristina [address] | | | | | | [address] | | | | | | [place] [address] | | | | | | [phone] | | | | | | | [...]
--- OUTSIDE RECORDS SUMMARY | ~2020-01-04 | XMS | Encounter Summary ---
Demographics + + + | Address | [address] | | | [place] [address] | + + + | Home Phone | | + + + | Preferred Language | Unknown | + + + | Marital Status | Single | + + + | Samaritan Affiliation | Unknown | + + + | Race | Unknown | + + + | Ethnic Group | Unknown | + + + Author + + + | Author | [facility] | | | and Edana | + + + | Organization | [facility] | | | and Edana [...] Team Providers + +------+ + | Care Chaplain Resident Name | Role | Phone | + [...] or equal to | [place] | [address] | | | | | 8mm | [place] | Phone: | | | | | Procedures | [address] | [phone] | | | | | CT Chest wo | Phone: | Fax: | | | | | Contrast | [phone] | [phone] | | | | | | Fax: | | | | | | | [phone] | | +--------+--------+ + + + + Reason for Visit +--------+ + | Reason | Comments | +--------+ + | Other | | +--------+ + Encounter Details +--------+ + + + + | Date | Type | Department | Care Team | Description | +--------+ + + + + | 03/25/ | Telephone | [facility] | Krystin Tracy RN | Other | | 2018 | | PULMONOLOGY 1100 | | | | | | [address] | | | | | | [facility] [place] | | | | | | [address] | | | | | | [phone] | | | +--------+ + + + [...]
--- OUTSIDE RECORDS SUMMARY | ~2020-01-04 | XMS | Clinical Summary ---
Demographics + + + | Address | [address] | | | [place] [address] | + + + | Home Phone | | + + + | Preferred Language | Unknown | + + + | Marital Status | Single | + + + | Jewish Affiliation | Unknown | + + + | Race | Unknown | + + + | Ethnic Group | Unknown | + + + Author + + + | Author | [facility] | | | and Edana | + + + | Organization | [facility] | | | and [...] Team Providers + +------+ + | Care Hot Strip Finisher Name | Role | Phone | + [...] +--------+ +---------+--------+ | MEDICARE | MEDICA | [id number] | 09/27/19 | [phone] | | Medica | | | RE | | 09-Pre | 5 | | re | | | PART A | | sent | | | | | | AND B | | | | | | + +--------+ +--------+ +---------+--------+ | [place] | MEDICA | [id number] | 06/16/ | [phone] | | Medica [...] Person | Self | [birth year] | | [address] | | | al/Fam | | 1960 | [phone] | [place] [address] | | | fernando | | | 6 (Home) | | + +--------+ +--------+ + + | Diony Salinas | Person | Self | [birth year] | | [address] | | | al/Fam | | 1960 | [phone] | [place] [address] | | | fernando | | | 6 (Home) | | + +--------+ +--------+ + + Advance Directives + + + + + | Type | Date Recorded | Patient | Explanation | | | | Lockstitch Waistband Setter | | + + + + + | Power of | | | | | County Home Demonstration Agent | | | | + + + + + | Advance | | | | | Directive | | | | + + + + +
--- OUTSIDE RECORDS SUMMARY | ~2020-01-04 | XMS | Encounter Summary ---
Demographics + + + | Address | [address] | | | [place] [address] | + + + | Home Phone [...] + + + | Author | [facility] | | | and Edana | + + + | Organization | [facility] | | | and [...] Team Providers + +------+ + | Care Mc Kay Machine Operator Name | Role | Phone | + +------+ + | Gaetano Candelaria MD | PCP | | + +------+ + Encounter Details +--------+ + + + + | Date | Type | Department | Care Team | Description | +--------+ + + + + | 05/31/ | Hospital | [facility] | Conversion | Incidental pulmonary | | 2017 | Encounter | [facility] 945 | Transaction, | nodule, greater | | | | [address] | Provider Unknown | than or equal to 8mm | | | | [place] | [phone] | | | | | [address] | | | | | | [phone] | Aaliyah Perea | | | | | | MD Cristina [address] | | | | | | [address] | | | | | | [place] [address] | | | | | | [phone] | | | | | | | [...] At | + + + | [facility] CHEST WO CONTRAST HISTORY: Incidental | [...] Conversion - 03/11/2019 10:55 PM PDT [facility] | | HISTORY:Incidental [...]
--- OUTSIDE RECORDS SUMMARY | ~2020-01-04 | XMS | Encounter Summary ---
Demographics + + + | Address | [address] | | | [place] [address] | + + + | Home Phone | | + + + | Preferred Language | Unknown | + + + | Marital Status | Single | + + + | Islam Affiliation | Unknown | + + + | Race | Unknown | + + + | Ethnic Group | Unknown | + + + Author + + + | Author | [facility] | | | and Edana | + + + | Organization | [facility] | | | and [...] Team Providers + +------+ + | Care Medical Billing Supervisor Name | Role | Phone | [...] | | | Incidental | Aaliyah | [facility] | | | | | pulmonary | MD Cristina | SLEEP | | | | | nodule, | 1100 | [facility] | | | | | greater than | [address] | [address] | | | | | or equal to | [address] | [place] | | | | | 8mm | [place] | [place] | | | | | Procedures | [address] | [address] | | | | | Pulmonary | Phone: | Phone: | | | | | function | [phone] | [phone] | | | | | test | Fax: | Fax: | | | | | | [phone] | [phone] | +--------+--------+ + + + + Encounter Details +--------+---------+ + + + | Date | Type | Department | Care Team | Description | +--------+---------+ + + + | 06/30/ | Office | [facility] | Eliazar, | Incidental pulmonary | | 2019 | Visit | PULMONOLOGY 1100 | Aaliyah Evans, | nodule, greater | | | | [address] | MD [address] | than or equal to 8mm | | | | [place] | [place], | (Primary Dx); | | | | [address] | [place] [address] | History of breast | | | | [phone] | [phone] | cancer; Personal | | | | [...] only fol lows with her Oncologist in [place] every year. 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 ACTIVITIES OF DAILY LIVING: Independent without difficulty. [...] were also smokers. 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 Immanuel monteiro was raised in [place], lived in [facility] [facility] [place] for 2 years, and previous to that, was in [facility] and for 29 years. She has [...] still is in remission. Her Oncologist in [place] has retired, and so I have encouraged [...] Perea MD Pulmonary and Critical Care Medicine [facility]/[address] , [facility] [place] [address] documente d in this encounter Plan of [...]
--- OUTSIDE RECORDS SUMMARY | ~2020-01-04 | XMS | Encounter Summary ---
Demographics + + + | Address | [address] | | | [place] [address] | + + + | Home Phone | | + + + | Preferred Language | Unknown | + + + | Marital Status | Single | + + + | Restorationist Affiliation | Unknown | + + + | Race | Unknown | + + + | Ethnic Group | Unknown | + + + Author + + + | Author | [facility] | | | and Edana | + + + | Organization | [facility] | | | and Edana [...] Team Providers + +------+ + | Care Emergency Management Program Specialist Name | Role | Phone | + +------+ + | Gaetano Candelaria MD | PCP | | + +------+ + Encounter Details +--------+ + + + + | Date | Type | Department | Care Team | Description | +--------+ + + + + | 02/26/ | Hospital | [facility] | Conversion | Incidental pulmonary | | 2018 | Encounter | [facility] CT 945 | Transaction, | nodule, greater | | | | [address] | Provider Unknown | than or equal to 8mm | | | | [place] | [phone] | | | | | [address] | | | | | | [phone] | Aaliyah Perea | | | | | | MD Cristina [address] | | | | | | [address] | | | | | | [place] [address] | | | | | | [phone] | | | | | | | [...] Conversion - 03/11/2019 7:03 AM PDT [facility][id number] | | FemaleCT CHEST WO CONTRAST02/26/2018 [...]
--- OUTSIDE RECORDS SUMMARY | ~2020-01-04 | XMS | Encounter Summary ---
Demographics + + + | Address | [address] | | | [place] [address] | + + + | Home Phone | | + + + | Preferred Language | Unknown | + + + | Marital Status | Single | + + + | Anglican Affiliation | Unknown | + + + | Race | Unknown | + + + | Ethnic Group | Unknown | + + + Author + + + | Author | [facility] | | | and Edana | + + + | Organization | [facility] | | | and [...] Team Providers + +------+ + | Care Comber Tender Name | Role | Phone | + +------+ + | Gaetano Candelaria MD | PCP | | + +------+ + Encounter Details +--------+ + + + + | Date | Type | Department | Care Team | Description | +--------+ + + + + | 02/23/ | Orders Only | [facility] | Provider, | | | 2018 | | SYSTEM GENERIC OP | MD Lizeth [address] | | | | | CONVERSION [address] | Elizabeth JANSEN | | | | | [address] [place], [place] | [place] [address] | | | | | [address] | | | | | | [phone] | | | +--------+ + + + [...]
--- OUTSIDE RECORDS SUMMARY | ~2020-01-04 | XMS | Encounter Summary ---
Demographics + + + | Address | [address] | | | [place] [address] | + + + | Home Phone | | + + + | Preferred Language | Unknown | + + + | Marital Status | Single | + + + | Anabaptist Affiliation | Unknown | + + + | Race | Unknown | + + + | Ethnic Group | Unknown | + + + Author + + + | Author | [facility] | | | and Edana | + + + | Organization | [facility] | | | and [...] Team Providers + +------+ + | Care Wood Boatbuilder Apprentice Name | Role | Phone | + +------+ + | Gaetano Candelaria MD | PCP | | + +------+ + Encounter Details +--------+ + + + + | Date | Type | Department | Care Team | Description | +--------+ + + + + | 06/05/ | Hospital | [facility] | Conversion | Incidental pulmonary | | 2017 | Encounter | [facility] | Transaction, | nodule, greater | | | | MEDICINE 945 | Provider Unknown | than or equal to 8mm | | | | [address] | [phone] | | | | | [place] | | | | | | [address] | Aaliyah Perea | | | | | [phone] | MD Cristina [address] | | | | | | [address] | | | | | | [place] [address] | | | | | | [phone] | | | | | | | [...]
--- OUTSIDE RECORDS SUMMARY | ~2020-01-04 | XMS | Encounter Summary ---
Demographics + + + | Address | [address] | | | [place] [address] | + + + | Home Phone [...] | [facility] | | | and Edana [...] Team Providers + +------+ + | Care Transitions Rn Care Coordinator Name | Role | Phone | [...] greater than | [address] | [facility] [place] | | | | | or equal to | [place] | [address] | | | | | 8mm | [place] | Phone: | | | | | Procedures | [address] | [phone] | | | | | CT Chest wo | Phone: | Fax: | | | | | Contrast | [phone] | [phone] | | | | | | Fax: | | | | | | | [phone] | | +--------+--------+ + + + + Reason for Visit Diagnostic/Screening (Routine) +--------+--------+ + + + + | Status | Reason | Specialty | Diagnoses / | Referred By | Referred To | | | | | Procedures | Contact | Contact | +--------+--------+ + + + + | Closed | | Radiology | Diagnoses | Eliazar, | [facility] [address] | | | | | Incidental | Aaliyah | 945 | | | | | pulmonary | MD Cristina | [address] | | | | | nodule, | 1100 | [address] | | | | | greater than | [address] | [place] | | | | | or equal to | [address] | [address] | | | | | 8mm | [place] | Phone: | | | | | Procedures | [address] | [phone] | | | | | CT Chest wo | Phone: | Fax: | | | | | Contrast | [phone] | [phone] | | | | | | Fax: | | | | | | | [phone] | | +--------+--------+ + + + + Encounter Details +--------+ + + + + | Date | Type | Department | Care Team | Description | +--------+ + + + + | 06/30/ | Hospital | [facility] | Eliazar, | Incidental pulmonary | | 2019 | Encounter | [facility] [address] 945 | Aaliyah Evans, | nodule, greater | | | | [address] | [address] | than or equal to 8mm | | | | [place] | [place], | | | | | [address] | [place] [address] | | | | | [phone] | [phone] | | | | | | | [...]
--- OUTSIDE RECORDS SUMMARY | ~2020-01-04 | XMS | Encounter Summary ---
Demographics + + + | Address | [address] | | | [place] [address] | + + + | Home Phone | | + + + | Preferred Language | Unknown | + + + | Marital Status | Single | + + + | Episcopalian Affiliation | Unknown | + + + | Race | Unknown | + + + | Ethnic Group | Unknown | + + + Author + + + | Author | [facility] | | | and Edana | + + + | Organization | [facility] | | | and [...] Team Providers + +------+ + | Care Risk Management Manager Name | Role | Phone | + [...] [place], [place] | | | | | [place] MOT[place] | [facility] [place] | [address] Phone: | | | | | &/SENS 1-2 | [address] | [phone] | | | | | NRV CNDJ | Phone: | Fax: | | | | | PRECONF | [phone] | [phone] | | | | | [place] | Fax: | | | | | | NCS-right | [phone] | | | | | | upper [...] and mild on | | | | [address] | | the left (Primary | | | | [phone] | | Dx) | +--------+ + + [...] Hollingsworth MD - 04/05/2014 6:46 PM PDT [facility] Musculoskeletal, Sports and Spine, Physiatry [address] [address] Test Date: 04/05/2014 Patient Name: Diony Salinas : 1960 Physician: David Hollingsworth MD MR #: [id number] Sex: Female Referring Physician: Bridger Esposito MD [...] hesitate to call. David Hollingsworth MD Fellow, [employer]. documented [...]
--- OUTSIDE RECORDS SUMMARY | ~2020-01-04 | XMS | Clinical Summary ---
Demographics + + + | Address | [address] | | | [place] [address] | + + + | Home Phone [...] Organization | [facility] | | | and Edana [...] Team Providers + +------+ + | Care Cashier Or Checker Stock Clerk Name | Role | Phone | + [...] +--------+ +---------+--------+ | MEDICARE | MEDICA | [id number] | 09/27/19 | [phone] | | Medica | | | RE | | 09-Pre | 5 | | re | | | PART A | | sent | | | | | | AND B | | | | | | + +--------+ +--------+ +---------+--------+ | [place]ICAID [place] | MEDICA | [id number] | 06/16/ | [phone] | | Medica [...] Person | Self | [birth year] | | [address] | | | al/Fam | | 1960 | [phone] | [place] [address] | | | fernando | | | 6 (Home) | | + +--------+ +--------+ + + | Diony Salinsa | Person | Self | [birth year] | | [address] | | | al/Fam | | 1960 | [phone] | [place] [address] | | | fernando | | | 6 (Home) | | + +--------+ +--------+ + + Advance Directives + + + + + | Type | Date Recorded | Patient | Explanation | | | | Pipe Straightener | | + + + + + | Power of | | | | | Pressurization Mechanic | | | | + + + + + | Advance | | | | | Directive | | | | + + + + +
--- OUTSIDE RECORDS SUMMARY | ~2020-01-04 | XMS | Encounter Summary ---
Demographics + + + | Address | [address] | | | [place] [address] | + + + | Home Phone [...] | Organization | [facility] | | | and [...] Team Providers + +------+ + | Care Couples Therapist Name | Role | Phone | + [...] + + | 03/24/ | Telephone | [facility] | Eliazar, | Other (Schedule | | 2019 | | PULMONOLOGY 1100 | Aaliyahfrancisca Evans, | follow up & order | | | | [address] | MD [address] | [address] | | | | [place], [place] | [address] [place], | | | | | [address] | [place] [address] | | | | | [phone] | | | | | | | [...]
--- OUTSIDE RECORDS SUMMARY | ~2020-01-04 | XMS | Encounter Summary ---
Demographics + + + | Address | [address] | | | [place] [address] | + + + | Home Phone | | + + + | Preferred Language | Unknown | + + + | Marital Status | Single | + + + | Uatsdin Affiliation | Unknown | + + + | Race | Unknown | + + + | Ethnic Group | Unknown | + + + Author + + + | Author | [facility] | | | and Edana | + + + | Organization | [facility] | | | and Edana [...] Team Providers + +------+ + | Care Assistant Basketball Coach Name | Role | Phone | + +------+ + | Gaetano Candelaria MD | PCP | | + +------+ + Encounter Details +--------+ + + + + | Date | Type | Department | Care Team | Description | +--------+ + + + + | 02/23/ | Orders Only | [facility] | Provider, | | | 2018 | | SYSTEM GENERIC OP | MD Lizeth [address] | | | | | CONVERSION [address] | Elizabeth JANSEN | | | | | [address] [place], [place] | [place] [address] | | | | | [address] | | | | | | [phone] | | | +--------+ + + + [...]
--- OUTSIDE RECORDS SUMMARY | ~2020-01-04 | XMS | Encounter Summary ---
Demographics + + + | Address | [address] | | | [place] [address] | + + + | Home Phone [...] Organization | [facility] | | | and [...] Team Providers + +------+ + | Care Procurement Cost Coordinator Name | Role | Phone | + +------+ + | Gaetano Candelaria MD | PCP | | + +------+ + Encounter Details +--------+ + + + + | Date | Type | Department | Care Team | Description | +--------+ + + + + | 05/31/ | Hospital | [facility] | Conversion | Incidental pulmonary | | 2017 | Encounter | [facility] [address] | Transaction, | nodule, greater | | | | [address] | Provider Unknown | than or equal to 8mm | | | | [place] | [phone] | | | | | [phone] | | | | | | [phone] | Aaliyah Perea | | | | | | MD Cristina [address] | | | | | | [address] | | | | | | [place] [address] | | | | | | [phone] | | | | | | | [...] At | + + + | DIONY [facility] CT CHEST WO CONTRAST HISTORY: Incidental [...] Conversion - 03/11/2019 10:55 PM PDT [facility] | | HISTORY:Incidental pulmonary [...]
--- OUTSIDE RECORDS SUMMARY | ~2020-01-04 | XMS | Encounter Summary ---
Demographics + + + | Address | [address] | | | [place] [address] | + + + | Home Phone [...] + + | Author | [facility] | | | and Edana | + + + | Organization | [facility] | | | and [...] Team Providers + +------+ + | Care Technicians And Trades Workers Name | Role | Phone | + +------+ + | Gaeatno Candelaria MD | PCP | | + +------+ + Encounter Details +--------+ + + + + | Date | Type | Department | Care Team | Description | +--------+ + + + + | 09/02/ | Hospital | [facility] | Conversion | Incidental pulmonary | | 2018 | Encounter | [facility] [address] | Transaction, | nodule, greater | | | | [address] | Provider Unknown | than or equal to 8mm | | | | [place] | [phone] | | | | | [address] | | | | | | [phone] | Aaliyah Perea | | | | | | MD [address] | | | | | | [address] | | | | | | [place] [address] | | | | | | [phone] | | | | | | | [...] At | + + + | DIONY [facility] [address] CHEST [...] 03/11/2019 7:03 AM PDT [facility] | FemaleCT CHEST WO CONTRAST09/02/2017 [...]
--- OUTSIDE RECORDS SUMMARY | 2020-01-04 17:00 | XMS ---
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 12/15/2019 20:29 - Other Details: PATIENT LWOBS CRITERIA MET - [facility] - 2 Visits in 30 Days CARE PROVIDERS ALEXANDER ALVARADO [facility] 01/26/2019-Current PHONE: [phone] Katherine has no Care Guidelines for this patient. Usman VISIT COUNT (12 MO.) 4 [facility]. TOTAL 4 NOTE: Visits indicate total known visits. ED/UCC VISIT TRACKING (12 MO.) 01/04/2020 16:57 [facility] [place] TYPE: Emergency COMPLAINT: - POST OP PROBLEM/FEVER 12/15/2019 20:29 [facility] [place] TYPE: Emergency COMPLAINT: - POST OP PAIN DIAGNOSES: - Procedure and treatment not carried out due to patient leavin 07/15/2019 10:31 [facility] [place] TYPE: Emergency COMPLAINT: - FLANK PAIN, NAUSEA DIAGNOSES: - Unspecified abdominal pain - Urinary tract infection, site not specified - correction (current) use of opiate analgesic - Other mcc (current) drug therapy - Nicotine dependence, unspecified, [...] visits to display in this time frame [email or web address]
[2020-01-04] MEDS ORDERED: ONDANSETRON ODT8 MG PO (18:21)
== END 2020-01-04 18:29 | disposition home or self-care (01) ==
LOC: ED 16:56
DX: B34.9 Viral infection, unspecified (principal); M79.10 Myalgia, unspecified site; E03.9 Hypothyroidism, unspecified; F17.200 Nicotine dependence, unspecified, uncomplicated; Z79.899 Other long term (current) drug therapy
CPT/HCPCS: 81001; 99283; U0002

== ENCOUNTER 2021-12-27 07:10 | Day surgery (SDC) | payer MEDICARE, OTHER ==
[~2021-12-27] VITALS: Ht 165.1 cm; Wt 138.5 kg
[~2021-12-27 07:10] MED LIST changes: +FOSAMAX70 MG PO; +IMITREX100 MG PO; +PERCOCET 10-321 EACH PO; +PROMETHAZINE HC25 M1 PO; +VITAMIN D350 MC3 PO; +ZINC50 M1 PO
--- NOTE | 2021-12-27 09:13 | NUR ---
12/27/21 0913 Britney Rosenthal 0908-PATIENT ARRIVED TO PACU ON 6L MASK NONAROUSABLE RR EVEN. SR. IVF INFUSING. PATIENT LAYING LEFT LATERAL ABDOMEN SOFT.
--- NOTE | 2021-12-28 05:43 | OR ---
[facility] [address] [place], [place] [address] Signed DATE OF OPERATION: 12/27/2021 SURGEON: Matilde Murillo MD PREOPERATIVE DIAGNOSES: 1. Screening. 2. Chronic irritable bowel syndrome with diarrhea. POSTOPERATIVE DIAGNOSES: 1. 4 mm sessile polyps x3 at 35 cm. 2. Minimal internal and external hemorrhoids. PROCEDURE: Colonoscopy with hot biopsy. ESTIMATED BLOOD LOSS: None. INDICATIONS: Diony is a 61-year-old female asked to see me for a followup screening colonoscopy. She talked about irritable bowel syndrome with diarrhea for many years. She mentioned a negative colonoscopy in 2000 at [facility] in [place], [place]. She mentioned an upper endoscopy in 2003 at [facility] in [place] with gastritis. I helped with upper and lower endoscopy in 2009. Again, she had gastritis and esophagitis with a negative CLOtest. However, the colonoscopy was negative with respect to the biopsies. She has been asked to come back for a screening colonoscopy. She has no family history of colon cancer or polyps. I gave her a pamphlet on colonoscopy and we reviewed the nature of the test. She understands there is risk including, but not limited to gas bloating, crampy abdominal pain, bleeding, perforation requiring surgery, and missed diagnosis. She also understands the need for monitored anesthesia care given her daily need for morphine and Percocet. This has worked out well for her in the past. She had expressed understanding and wished to proceed. PROCEDURE IN DETAIL: Diony was taken into our endoscopy suite and placed in the left lateral decubitus position. She was given monitored anesthesia care with propofol per our nurse customer operations manager. A digital rectal exam was performed. She has small circumferential external hemorrhoids. She has good sphincter tone. There were no masses. The adult colonoscope was introduced and advanced under direct visualization of camera up into the cecum without difficulty. Her prep was quite good. We could easily see the appendiceal Electronically Signed By: MATILDE MURILLO MD 12/28/21 0543 PATIENT NAME: DIONY AGUILERA OPERATIVE REPORT DATE OF : 62 REPORT #: [id number] PHYSICIAN: MATILDE MURILLO MD PCP: ALEXANDER ALVARADO MD REPORT IS CONFIDENTIAL AND NOT TO BE RELEASED WITHOUT AUTHORIZATION [address] [address] Signed orifice and the ileocecal valve. The scope was then slowly withdrawn. We took several pictures throughout for photodocumentation. She had three sessile polyps about 4 mm in diameter, right around 35 cm. All three were biopsied and destroyed completely with hot biopsy forceps and placed into the same specimen jar. There was no diverticulosis. Once in the rectum, the scope had been retroflexed and we could see small internal hemorrhoid columns as well. After this, the gas was suctioned out. The colonoscope removed. Diony tolerated the procedure quite well. RECOMMENDATIONS: I will see Diony back in my office in 7 to 14 days to review her results. Matilde Murillo MD ALB/MODL /[id number] cc: MD Alexander Mullen MD Copies: MATILDE MURILLO MD, RUSSELL BARR MD ~ Electronically Signed By: MATILDE MURILLO MD 12/28/21 0543 PATIENT NAME: DIONY AGUILERA OPERATIVE REPORT DATE OF : 62 REPORT #: [id number] PHYSICIAN: MATILDE MURILLO MD PCP: ALEXANDER ALVARADO MD REPORT IS CONFIDENTIAL AND NOT TO BE RELEASED WITHOUT AUTHORIZATION
--- NOTE | 2021-12-28 13:32 | PATH ---
[facility] [address] [place], [place] [address] Signed SPECIMEN(S): A COLON POLYPS AT 35 CM X3 SPECIMEN SOURCE: A. COLON POLYPS AT 35 CM X3 CLINICAL HISTORY: Screening colonoscopy. Postop: Polyps, minimal internal and external hemorrhoids. FINAL PATHOLOGIC DIAGNOSIS: Colon, polyps x 3 at 35 cm, polypectomies: - Fragments of tubular adenomas. - Negative for high-grade dysplasia or malignancy. NAL:cml:C2NR MICROSCOPIC EXAMINATION: Histologic sections of all submitted blocks are examined by light microscopy. These findings, together with the gross examination, support the pathologic diagnosis. GROSS DESCRIPTION: The specimen, labeled "PL, colon polyps at 35 cm," is received in formalin and consists of four slater soft tissue fragments that measure 0.2 cm in greatest dimension. The specimen is entirely submitted in cassette (A1). JS (under the direct supervision of a pathologist) The Gross Description was prepared using a voice recognition system. The report was reviewed for accuracy; however, sound-alike word errors, addition and/or deletions may occur. If there is any question about this report, please contact Client Services. PERFORMING LABORATORY: The technical component was performed by [facility], [address] [place] [address] (CLIA# [id number]). Professional interpretation [facility] [address] [address] (CLIA# [id number]). Diagnostician: Annie Arroyo MD Pathologist Electronically Signed 12/28/2021 PATIENT NAME: MARU AGUILERA PATHOLOGY DATE OF : 62 REPORT #: [id number] PHYSICIAN: MISTI PATHOLOGY PCP: ALEXANDER ALVARADO MD REPORT IS CONFIDENTIAL AND NOT TO BE RELEASED WITHOUT AUTHORIZATION [address] [place] [address] Signed Copies: ~ PATIENT NAME: MARU AGUILERA PATHOLOGY DATE OF : 62 REPORT #: [id number] PHYSICIAN: MISTI PATHOLOGY PCP: ALEXANDER ALVARADO MD REPORT IS CONFIDENTIAL AND NOT TO BE RELEASED WITHOUT AUTHORIZATION
== END 2021-12-27 09:45 | disposition home or self-care (01) ==
LOC: DS 07:10 → OPS 07:10 → DS 08:30 → OPS 09:45
PROVIDERS: ATTEND Colon & Rectal Surgery
PROC: 0DBE8ZX Excision of Large Intestine, Via Natural or Artificial Opening Endoscopic, Diagnostic (ICD-10-PCS; principal; 2021-12-27 08:30)
DX: D12.6 Benign neoplasm of colon, unspecified (principal); K58.0 Irritable bowel syndrome with diarrhea; K64.4 Residual hemorrhoidal skin tags; K64.8 Other hemorrhoids; K29.70 Gastritis, unspecified, without bleeding; E03.9 Hypothyroidism, unspecified; G89.4 Chronic pain syndrome; F32.A Depression, unspecified; F17.210 Nicotine dependence, cigarettes, uncomplicated; Z88.5 Allergy status to narcotic agent; F11.10 Opioid abuse, uncomplicated
CPT/HCPCS: J2704; J7121

== ENCOUNTER 2021-12-28 15:13 | Inpatient (IN) | payer MEDICARE, OTHER ==
[~2021-12-28] VITALS: Ht 165.1 cm; Wt 62.7 kg
--- OUTSIDE RECORDS SUMMARY | 2021-12-28 15:16 | XMS ---
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 EDeon VISIT COUNT (12 MO.) Alex Abrams TOTAL 1 NOTE: Visits indicate total known visits. ED/UCC VISIT TRACKING (12 MO.) 12/28/2021 15:14 OLIVIA Mckenna OR TYPE: Emergency COMPLAINT: - ABDOMINAL PAIN INPATIENT VISIT TRACKING (12 MO.) No inpatient visits to display in this time frame [email or web address]
--- NOTE | 2021-12-28 18:01 | NUR ---
REPORT RECEIVED FROM IRON MARTÍNEZ. AWAITING PTS ARRIVAL TO MED/SURG.
--- NOTE | 2021-12-28 18:45 | NUR ---
PT ARRIVED FROM ER. PT TRANSFERS SELF TO BED WITH STAND BY ASSIST. PT REPORTS 8/10 PAIN AND REQUESTS PAIN MEDICATIONS, SEE MAR FOR MEDICAITON GIVEN. PT NOTED TO BE MILDY TACHCARDIC AND FEBRIAL. DR. MURILLO CALLED. NEW ORDERS GIVEN. ORDERS ENTERED AND REPEAT BACK PERFORMED. TYELNOL GIVEN. FLUID BOLUS GIVEN. PLAN OF CARE REVIEWED WITH PT. BOWEL TONES ACTIVE. ABDOMEN GUARDED. NO ADDITIONAL NEEDS AT THIS TIME. PT VISITING WITH FAMILY. CALL LIGHT WIHTIN REACH. BED RAILS UP.
--- NOTE | 2021-12-28 19:10 | NUR ---
SHIFT REPORT RECEIVED FROM DAYSMAFT IRON CARRILLO AT BEDSIDE. pt AWAKE AND RESTING IN BED, IV SITE WNL. IV BOLUS INFUSING DIRECTED. NO NEEDS OR CONCERNS VERBALIZED, BOARD UPDATED AND CALL LIGHT IN REACH. SIG OTHER ALSO IN ROOM.
--- NOTE | 2021-12-28 19:10 | NUR ---
REPORT GIVEN TO IRON MUSTAFA. PT REPORTS PAIN IS NOW AT 5/10 IN RIGHT ABDOMENT AND TOLERABLE AT THIS TIME. PT DENIES ADDITIONAL REQUESTS OR COMPLAINTS.
--- NOTE | 2021-12-28 19:38 | NUR ---
INFORMED BY EMPLOYMENT OFFICE CLERK THAT pt RECENTLY RETURNED FROM BATHROOM AND IV PUMP IS ALARMING, ISSUE RESOLVED. IV SITE REMAINS WNL, NO ADDITIONAL NEEDS VERBALIZED. CALL LIGHT IN REACH.
--- NOTE | 2021-12-28 19:50 | NUR ---
IV PUMP WAS BEEPING, IT IS NOW INFUSING FINE. PT DENIES NEEDS. CALL LIGHT IS CLOSE.
--- NOTE | 2021-12-28 20:07 | NUR ---
on phone with erendira from telepharmacy regarding iv abs-flagyl and cefepime. pt recently received first dose, telepharmacy to retime in emar. assessment complete, iv site wnl, flushes easily. fluids infusing as directed. pt reports tolerable 7/10 pain, denies need for pain medication at this time. reports mild nausea, cool rag given-pt not yet due for prn nausea medication. pt verbalizes understanding. no distress noted. abd tenderness noted w/ palpatation, bowel tones active. no further needs, call light in reach.
--- NOTE | 2021-12-28 21:00 | NUR ---
dr corona at rn station and putting in new orders after assessing pt. dr corona aware of most recent temp of 101.6, temp trending downwards. dr corona also aware of this rn's discussion w/ telepharmacy and retiming of the iv abx.
--- NOTE | 2021-12-28 22:04 | NUR ---
TEMP REASSESSED, RESULT OF 99.1. pt UP SBA TO VOID AND BACK TO BED, PRN PAIN MEDICATION GIVEN FOR REPORTED 9/10 ABD PAIN ALONG WITH PRN NAUSEA MEDICATION. NO EMESIS NOTED. EMESIS BAG PROVIDED. SCD'S IN PLACE AND IS ALSO AT BEDSIDE PER NEW MD ORDERS. IV SITE WNL, FLUIDS RESUMED PER MD ORDERS. NO FURTHER NEEDS, CALL LIGHT IN REACH. WILL CONTINUE TO MONITOR.
--- NOTE | 2021-12-28 22:30 | NUR ---
IN ROOM TO ASSESS PAIN, pt RESTING IN BED WITH EYES CLOSED AND RR EVEN AND UNLABORED. NO DISTRESS NOTED, 2LNC REMAINS IN PLACE. CALL LIGHT IN REACH.
--- NOTE | 2021-12-28 22:54 | NUR ---
CALL LIGHT ANSWERED, ADDITIONAL 0.5MG PRN DILAUDID GIVEN FOR REPORTED 7/10 PAIN, SEE EMAR. NO FURTHER NEEDS, CALL LIGHT IN REACH.
--- NOTE | 2021-12-29 00:14 | NUR ---
ROUNDED ON pt, pt AWAKE AND RESTING IN BED. REPORTS PAIN TOLERABLE AT 5/10, DENIES NEEDS OR CONCERNS. CALL LIGHT IN REACH.
--- NOTE | 2021-12-29 01:52 | NUR ---
ASSESSMENT COMPLETE, SCHEDULED IV ABX INFUSING DIRECTED, IV SITE WNL. VSS AND I&O'S COMPLETE. NO CHANGES TO ASSESSMENT, pt REPORTS TOLERABLE 5-7/10 PAIN, ICE PACK PROVIDED FOR ABD TENDERNESS. LEFT UPPER QUADRANT HYPOACTIVE, REMAINING QUADRANTS ACTIVE. MOUTH SWABS PROVIDED TO WET MOUTH, pt REMAINS NPO. CALL LIGHT IN REACH.
--- NOTE | 2021-12-29 03:11 | NUR ---
IN ROOM TO ASSIST PT TO THE RESTROOM AND BACK TO BED. PT DRY HEAVING, ADMINISTERED 12.5MG IV PHENERGAN DILUTED IN 20MLS NS VIA PUMP PER PROTOCOL. PT DENIES ANY PAIN WITH IV INFUSION. PT ALSO STATES HER PAIN IS 7/10 AND SHE IS GRIMACING. ADMINISTERED 1MG IV DILUADID DILUTED IV SLOW PUSH. PT IS NOW RESTING COMFORTABLY WHILE PHENERGAN CONTINUES TO INFUSE. RR IS EVEN AND UNLABORED AND CALL LIGHT IS CLOSE.
--- NOTE | 2021-12-29 03:58 | NUR ---
ROUNDED ON pt, pt AWAKE AND REPORTS THAT BOTH PAIN AND NAUSEA HAVE IMPROVED. SPO2 93% ON 2LNC, HR 78. CALL LIGHT IN REACH, RR EVEN AND UNLABORED. WILL CONTINUE TO MONITOR. IV SITE WNL.
--- NOTE | 2021-12-29 05:42 | NUR ---
ROUNDED ON pt, VSS AND I&O'S COMPLETE. IV SITE WNL, FLUIDS INFUSING DIRECTED. IV PUMP CLEARED. pt REPORTS NO CHANGE IN ABD FEELING OR APPEARANCE AND DENIES FEELINGS OF INCREASED ABD DISTENTION, DENIES PASSING GAS. REMAINS NPO, ALLERGY BAND TO pt WRIST. NO FURTHER NEEDS, CALL LIGHT IN REACH.
--- NOTE | 2021-12-29 05:56 | CONS ---
[facility] [address] [place], [place] [address] Signed DATE OF CONSULTATION: 12/28/2021 CHIEF COMPLAINT: Abdominal pain. HISTORY OF PRESENT ILLNESS: Diony is a 61-year-old female, who I just helped with a colonoscopy yesterday and we removed three small polyps in the sigmoid colon. They were all 4 mm or less in size. We did use a hot biopsy forceps. We know she has minimal internal and external hemorrhoids as well. She developed abdominal pain today mainly in the right lower quadrant. She had some fevers. She had called the office, we asked her to go the emergency room for evaluation. In the emergency room, it is interesting that she has pain in the right lower quadrant. White count is a little up at 13.3. CT scan showed some thickening in the sigmoid colon. The little bit air around the sigmoid colon and possibly some up over the liver. We had given her cefepime and Flagyl, admitted her to the floor. In the meantime, she is overall doing well and has not changed clinically. PAST MEDICAL HISTORY: Breast cancer, ear tumors, hypothyroidism, osteoarthritis, osteoporosis, and kidney stones. PAST SURGICAL HISTORY: Includes bilateral mastectomies, cholecystectomy, right hand osteoarthritis, ear surgery x17, breast augmentation. SOCIAL HISTORY: Dr. Esposito is her primary care provider. She prefers [facility]. Kurtis Carr is her significant other at #[phone]. FAMILY HISTORY: None. REVIEW OF SYSTEMS: She had 10 systems reviewed and there were no new additions. ALLERGIES: Morphine. MEDICATIONS: Zofran, levothyroxine, , gabapentin, fluoxetine, celecoxib, Fosamax, Imitrex, Percocet, vitamin D, and zinc. PHYSICAL EXAMINATION: Electronically Signed By: MATILDE MURILLO MD 12/29/21 0556 PATIENT NAME: DIONY AGUILERA CONSULTATION DATE OF : 62 REPORT #: [id number] PHYSICIAN: MATILDE MURILLO MD PCP: ALEXANDER ESPOSITO MD REPORT IS CONFIDENTIAL AND NOT TO BE RELEASED WITHOUT AUTHORIZATION [facility] [address] [place], [place] [address] Signed VITAL SIGNS: Her blood pressure , heart rate 96, respiratory rate 16, temperature is 102.4. She is 95% on room air. She is 5 feet 5 inches and 62 kg. GENERAL: Diony is a 61-year-old female, who appears generally healthy and at her stated age. She does not appear systemically ill or toxic. LUNGS: Clear to auscultation. HEART: Regular rate and rhythm. ABDOMEN: Soft and flat. Interestingly, she is tender mainly in the right lower quadrant. LABORATORY DATA: Her white blood count 13.3, hemoglobin 13, neutrophils 75. Electrolytes are unremarkable. Potassium slightly low at 3.2, total bilirubin is up a little at 1.7, AST 76, ALT 82, alkaline phosphatase 90, albumin 3.5. Urinalysis shows some bilirubin. RADIOGRAPHIC STUDIES: CT scan and pelvis is reviewed, the images as well as the report. She does have some inflammation in sigmoid colon, although it is difficult to see all these small air bubbles. ASSESSMENT/PLAN: Diony is a 61-year-old female, who certainly has a perforation from her biopsies after the biopsies in the sigmoid colon. They were three clustered in one area. She is admitted and we are going to keep her n.p.o. on IV fluids and we will keep her on the cefepime and Flagyl. She is aware that if this worsens or does not improve, she would need surgery, but if it improves, we will continue on a conservative route. We will see her in the morning for serial exam as well as repeat labs. I reviewed all this with her in detail. She has expressed understanding, agrees with above plan. Matilde Murillo MD ALB/MODL /[id number] cc: MD Matilde Zamora MD Electronically Signed By: MATILDE MURILLO MD 12/29/21 0556 PATIENT NAME: DIONY AGUILERA CONSULTATION DATE OF : 62 REPORT #: [id number] PHYSICIAN: MATILDE MURILLO MD PCP: ALEXANDER ESPOSITO MD REPORT IS CONFIDENTIAL AND NOT TO BE RELEASED WITHOUT AUTHORIZATION [facility] [address] [place] [address] [place], [place] [address] Signed Copies: ALEXANDER ESPOSITO MD, ANDREW L MD ~ Electronically Signed By: MATILDE MURILLO MD 12/29/21 0556 PATIENT NAME: DIONY AGUILERA CONSULTATION DATE OF : 62 REPORT #: [id number] PHYSICIAN: MATILDE MURILLO MD PCP: ALEXANDER ESPOSITO MD REPORT IS CONFIDENTIAL AND NOT TO BE RELEASED WITHOUT AUTHORIZATION
--- NOTE | 2021-12-29 07:37 | NUR ---
spoke to anabella in pharmacy, anabella to change rate of ordered cefepime per protocol and change to 4hr extended infusion.
--- NOTE | 2021-12-29 08:00 | NUR ---
REPORT RECEIVED FROM NIGHT RN AND PT. CARE RESUMED. PT. C/O 02/04 ABDOMINAL PAIN AND NAUSEA. ADMIN DILAUDID AND ZOFRAN. PT. VOMITING A SMALL AMOUNT OF YELLOW EMESIS. GIVEN WARM WASHCLOTH. IV SITE WNL AND FLUSHES WELL. ABDOMEN MODERATELY DISTENDED, SOFT AND TENDER. LUNGS CLEAR THROUGHOUT. CONSENT SIGNED AND PRE OP CHECK LIST COMPLETED.
--- NOTE | 2021-12-29 09:04 | NUR ---
pt pre sx whip down compleated. call light within reach no further tasks at this time
--- NOTE | 2021-12-29 09:40 | NUR ---
INTO ROOM TO ATTEMPT CASE MANAGEMENT ASSESSMENT. PATIENT SLEEPING DOES NOT WAKE TO VOICE. SPOKE WITH DEX PERDUE, PATIENT HAS BEEN PAINFUL MOST OF THE NIGHT AND HAS BEEN SLEEPING. DICUSSING THE PATIENT WITH DEX PERDUE, DATABASE SOFTWARE TECHNICIANIRON HENRY TO THE FLOOR TO TAKE PATIENT. WILL RETURN TO EVALUATE PATIENT WHEN SHE RETURNS FROM THE OR.
[2021-12-29] MEDS ORDERED: FLUOXETINE HCL20 M1 PO (09:50)
[2021-12-29] MEDS ORDERED: OXYCODONE HCL10 MG PO ×2 (09:55→15:31)
--- NOTE | 2021-12-29 10:15 | NUR ---
OR CHARGE HERE FOR PT. LEFT WITH IV ABX AND POTASSIUM INFUSING.
--- NOTE | 2021-12-29 12:52 | NUR ---
12/29/21 1252 Indira Carrillo 1243 PATIENT IN ROOM 129 CCU. REPORT RECIEVED FROM HAIDER CARTY. PATIENT IS REACTIVE BUT ORAL AIRWAY REMAINS IN PLACE. 8 LITERS OXYGEN VIA MASK. BREATHING EQUAL AND UNLABORED. PATIENT SURGICAL DRESSING IS CLEAN DRY AND INTACT. IVF INFUSING.
--- NOTE | 2021-12-29 13:15 | NUR ---
PT RECOVERED IN ROOM WITH PACU RNs AT BEDSIDE. AROUSES EASILY AND ANSWERS QUESTIONS APPROPRIATELY. O2 @ 4LPM VIA OXYMASK. DENIES PAIN AND NAUSEA. MIDLINE DRESSING C/D/I. OLGA PATENT. VSS. REPORT RECEIVED FROM PACU RNs. CALL LIGHT WITHIN REACH. VERBALIZES NEEDS. WILL CONTINUE TO MONITOR.
--- NOTE | 2021-12-29 13:38 | NUR ---
PATIENT RETURN TO CCU AFTER OR. INTO PATIENT ROOM, PATIENT DROWSY, PACU RNS AT BEDSIDE. WILL RETURN FOR ASSESSMENT WHEN PATIENT IS MORE ALERT.
--- NOTE | 2021-12-29 15:16 | NUR ---
PT AWAKE IN BED WATCHING TV AND APPEARS SLIGHTLY UNCOMFORTABLE. PILLOW PLACED TO ABDOMEN FOR SPLINTING- REPOSITIONED IN BED W/ STAFF ASSIST OF 1; PT STATES SHE'S COMFORTABLE IN CURRENT POSITION. DENIES NAUSEA. NGT IN PLACE TO LIS WITH SMALL AMOUNT OF GREEN DRAINAGE NOTED. MIDLINE DRESSING C/D/I. ESPINOZA PATENT WITH YELLOW URINE FLOWING TO BAG. IVs PATENT. ESPINOZA CATHETER WITH YELLOW URINE FLOWING TO BAG. SCDs IN PLACE. PLEASANT MOOD. VSS. AFEBRILE. CALL LIGHT WITHIN REACH. WILL CONTINUE TO MONITOR.
[2021-12-29] MEDS ORDERED: IMITREX100 MG PO (17:09)
--- NOTE | 2021-12-29 17:10 | NUR ---
MED REC COMPLETE
--- NOTE | 2021-12-29 17:30 | NUR ---
PT IS SITTING UP IN BED WITH VISITORS AT BEDSIDE. PRN PAIN MEDICATION ADMINISTERED- SEE EMAR FOR ADMINISTRATION INFORMATION. IVs PATENT. ESPINOZA CATHETER IN PLACE AND DRAINING AN ADEQUATE AMOUNT OF URINE. HOB ELEVATED. NGT TO LIS WITH SMALL AMOUNT OF GREEN OUTPUT. VSS. AFEBRILE. MIDLINE DRESSING C/D/I. CALL LIGHT WITHIN REACH. WILL CONT TO MONITOR.
--- NOTE | 2021-12-29 18:50 | NUR ---
PT W/ C/O NAUSEA- PRN ZOFRAN ADMINISTERED ORDERED. NGT TO LIS WITH SCANT AMOUNT OF OUTPUT. ESPINOZA WITH ADEQUATE URINE OUTPUT. IVs PATENT- ABX INFUSING ORDERED. MIDLINE INCISION C/D/I. CALL LIGHT WITHIN REACH. PT STATES PAIN IS IMPROVED AFTER PRN MEDICATION ADMINISTRATION. VSS. WILL CONT TO MONITOR.
--- NOTE | 2021-12-29 19:35 | NUR ---
REPORT RECEIVED FROM СВЕТЛАНА RN, WILL CONTINUE PLAN OF CARE.
--- NOTE | 2021-12-29 19:45 | NUR ---
PT LAYING IN BED SLEEPING AT THIS TIME, IV ABX INFUSING AT ORDERED RATE. PT ON OXYMASK 4L OXYMASK, SPO2 95%. PT AWOKE BRIEFLY AT THIS TIME AND REPORTED NO NEEDS WHEN ASKED. NEW BAG OF IVF STARTED AND NOW INFUSING AT ORDERED RATE (SEE MAR). ESPINOZA DRAINING URINE, NG TUBE ON LOW INTERMITTENT SUCTION, GREEN/BILE PRESENT. PT IN NO APPARENT DISTRESS AT THIS TIME AND IS NOW SLEEPING, WILL CONTINUE PLAN OF CARE. CALL LIGHT IN REACH, BED IN LOWEST POSITION.
--- NOTE | 2021-12-29 20:55 | NUR ---
PT LAYING IN BED SLEEPING INITIALLY AND AWOKE EASILY. PT IVF INFUSING, IV ABX INFUSING, PT ON 4L O2 OM. PT ORIENTED X 4, VITALS TAKEN, AND PT ASSESSMENT COMPLETED (SEE CHART). PT HEART RATE REGULAR, LUNGS CLEAR IN UPPER LOBES, DIMINISHED IN THE BASES, PT DENIES SHORTNESS OF BREATH WHILE ON 4L OXYMASK. ABDOMEN ASSESSED, ABDOMEN MILDLY DISTENDED, TENDER WHEN PALPATED. BOWEL TONES HYPOACTIVE. ABDOMINAL DRESSING C/D/I. PULSES STRONG, CAPILLARY REFILL BRISK, PT DENIES NUMBNESS OR TINGLING TO EXTREMITIES. ESPINOZA DRAINING CONCENTRATED URINE, NG TUBE ON LIS TO WALL, GREEN/BILE IN TUBING/CANNISTER. SCD IN PLACE ON LEFT LEG. AFTER ASSESSMENT PT REPORTED HAVING 8/10 ABDOMINAL PAIN AND REQUESTED PRN PAIN MEDICATIONS. PRN DILAUDID 1.5 MG AND PRN TORADOL ADMINISTERED (SEE MAR). PT REPORTED NAUSEA AFTERWARDS, PT GIVEN A COLD WASHCLOTH FOR HER FOREHEADE AND PRN PHENERGAN ADMINISTERED PER ORDERS/PROTOCOL (SEE MAR). PT NOW RESTING IN BED AND REPORTS NO FURTHER NEEDS, PT REPORTS THAT HER ABDOMINAL PAIN HAS IMPROVED ALONG WITH HER NAUSEA. CALL LIGHT IN REACH, BED IN LOWEST POSITION, PT WATCHING TV AT THIS TIME, WILL CONTINUE PLAN OF CARE.
--- NOTE | 2021-12-29 21:43 | NUR ---
PT RESTING IN BED AWAKE AND ALERT WATCHING TV. PT REPORTS HER PAIN AND NAUSEA HAS SUBSIDED AFTER THE PRN MEDICATION WAS ADMINISTERED. PT REPORTS NO NEEDS AT THIS TIME WHEN ASKED, WILL COTNINUE PLAN OF CARE. PT REMAINS ON 4L OXYMASK, IV ABX AND IVF INFUSING AT ORDERED RATES. CALL LIGHT IN REACH.
--- NOTE | 2021-12-29 23:25 | NUR ---
PT INITIALLY LAYING IN BED SLEEPING ON 4L O2 OXYMASK, IVF INFUSING AT ORDERED RATE. PT AWOKE EASILY AT THIS TIME AND WAS ORIENTED X4. VITALS TAKEN, PT AFEBRILE (SEE CHART). ASSESSMENT THEN COMPLETED (SEE CHART). PT MIDLINE INCISION/ABD DRESSING C/D/I, NO SIGNS OF BLEEDING NOTED, NO SHADOWING PRESENT. PT DENIES THE NEED FOR PAIN MEDICATION AT THIS TIME WHEN ASKED AND DENIES HAVING NAUSEA. NG TUBE ASSESSED AND IS STILL PATENT, ON LIS TO WALL SUCTION, GREEN BILE EMPTYING INTO WALL CANNISTER. ESPINOZA PATENT, DRAINING CONCENTRATED URINE. PT REPORTS NO FURTHER NEEDS AT THIS TIME AND REMAINS RESTING IN BED WATCHING TV. CALL LIGHT IN REACH, WILL CONTINUE PLAN OF CARE.
--- NOTE | 2021-12-30 01:07 | NUR ---
CALL LIGHT USED BY PT. PT LAYING IN BED RESTING AND REQUESTED PRN PAIN MEDICATION. PT STATES HER ABDOMINA AND BACK PAIN WAS AT 7/10. 1.5MG OF PRN DILAUDID ADMINISTERED (SEE MAR). RT IN ROOM AFTERWARDS AND TITRATED PT DOWN TO 3L O2 OXYMASK. AFTERWARDS PT WAS REPOSITIONED UP ON THE BED WITH HELP FROM IRON DIAS. PILLOWS PLACED UNDER PT'S LEFT SIDE PER HER REQUEST. PT REPORTS NO FURTHER NEEDS AND IS IN BED RESTING. CALL LIGHT IN REACH, BED IN LOWEST POSITION.
--- NOTE | 2021-12-30 02:04 | NUR ---
PT LAYING IN BED SLEEPING AT THIS TIME ON 3L O2 OXYMASK, IVF INFUSING. SCHEDULED IV ABX STARTED AND INFUSING NOW (SEE MAR). PT IN NO APPARENT DISTRESS AND REMAINS ASLEEP. RESPIRATIONS EVEN AND UNLABORED. NG TUBE PATENT AND ON LIS, GREEN/BILE PRESENT IN TUBING, ESPINOZA PATENT AND DRAINING CONCENTRATED URINE. PT TITRATED DOWN TO 2L O2 OXYMASK, SPO2 REMAINING AT 95%. NO FURTHER NEEDS ASSESSED AT THIS TIME, CALL LIGHT IN REACH, WILL CONTINUE PLAN OF CARE.
--- NOTE | 2021-12-30 03:50 | NUR ---
PT LAYING IN BED SLEEPING. 2L O2 OXYMASK IN PLACE, SPO2 94%, IVF AND IV ABX INFUSING. NEW BAG OF IVF STARTED AND NOW INFUSING (SEE MAR). PT TITRATED TO ROOM AIR BUT BEGAN TO DESATURATE TO 88-89%, PT PLACED ON 1L OXYGEN OXYMASK, SPO2 NOW MAINTINING AT 92%. PT IN NO APPARENT DISTRESS AND REMAINS ASLEEP, RESPIRATIONS EVEN AND UNLABORED, PT IN NO APPARENT DISTRESS. CALL LIGHT IN REACH, BED IN LOWEST POSITION, WILL CONTINUE PLAN OF CARE.
--- NOTE | 2021-12-30 05:00 | NUR ---
PT LAYING IN BED AWAKE AND ALERT, IVF INFUSING ORDERED. PT STATED SHE WAS NOW HAVING ABDOMINAL PAIN 7/10 AND NAUSEA. PRN DILAUDID, PRN TORADOL, AND PRN ZOFRAN ADMINISTERED (SEE MAR). AFTERWARDS PT VITALS WERE TAKEN AND ASSESSMENT WAS COMPLETED (SEE CHART). PT MIDLINE INCISION DRESSING C/D/I, WITH NO SIGNS OF DRAINAGE. BOWEL TONES ACTIVE AT THIS TIME IN ALL FOUR QUADRANTS. ABDOMEN TENDER WHEN PALPATED AND SOFT. NG TUBE ON LIS AND WAS FLUSHED WITH 50ML OF WATER TO ENSURE PATENCY. GREEN BILE PRESENT IN NG TUBING. ESPINOZA PATENT AND DRAINING CONCENTRATED URINE. PT INCREASED TO 3L O2 OM PT BEGAN TO DESATURATE WHILE ON 2L. [employer] IN AFTERWARDS AND [facility] PT'S LABS. PT IV'S ASSESSED, IV IN R HAND/WRIST NO LONGER PATENT AND WAS DC'D. IVF NOW INFUSING INTO RIGHT AC. PT REORTS NO FURTHER NEEDS AT THIS TIME AND IS RESTING IN BED. CALL LIGHT IN REACH, BED IN LOWEST POSITION.
--- NOTE | 2021-12-30 06:29 | NUR ---
IV PUMP ALARMING, IV ABX COMPLETED. IVF STILL INFUSING. PT LAYING IN BED SLEEPING AT THIS TIME ON 3L O2 OXYMASK. NG TUBE PATENT, 300ML OF GREEN/BILE NOTED TO BE IN SUCTION CANNISTER FOR THE SHIFT. ESPINOZA PATENT AND DRAINING CONCENTRATED URINE. PT AWOKE BRIEFLY AND REPORTED NO NEEDS WHEN ASKED. CALL LIGHT IN REACH, WILL CONTINUE PLAN OF CARE.
--- NOTE | 2021-12-30 07:09 | OR ---
[facility] [address], [place] [address] Signed DATE OF OPERATION: 12/29/2021 SURGEON: Matilde Murillo MD PREOPERATIVE DIAGNOSIS: Post polypectomy sigmoid colon perforation at 35 cm. POSTOPERATIVE DIAGNOSIS: Post polypectomy sigmoid colon perforation at 35 cm. PROCEDURES: 1. Laparotomy. 2. Primary repair of sigmoid colon perforation at 35 cm. ESTIMATED BLOOD LOSS: Minimal. INDICATIONS: Diony is a 61-year-old female, who I have helped with various endoscopies over the years. We just repeated her colonoscopy on December 27, 2021. She had three polyps a few centimeters apart at 35 cm. The polyps were about 4 mm in size each. We removed all three polyps with the help of hot biopsy forceps. She had called back the next day with abdominal pain, mainly in the right lower quadrant. We asked her to go to the emergency room for evaluation. Her white count was up at 13.3, and she was tender mainly in the right lower quadrant. There were some inflammatory changes in the sigmoid colon with a few bubbles of air around there and up in the abdomen. She was admitted and started on cefepime and Flagyl IV fluids and kept n.p.o. I had met with her last night and amazingly she did not have too much in the way of abdominal pain and again on the right side. I explained to Diony that often this can heal with conservative measures, but if she got worse certainly she would have to go to the operating room. This morning, I came back early and I could see she was feeling worse. She now had pain in the left lower quadrant of her abdomen as well as the right. White count gone up to 18,000. Despite of all that, her temperature spikes had resolved. I explained to Diony it was clear that she was worse, we are going to have repair of that area. I explained to her the nature of the laparotomy with most likely a primary repair of a small perforation. If necessary we could do a segmental resection and if absolutely necessary, she might need a colostomy situations. I explained to her the expected intraop and postop course. There is risk including, but not limited to bleeding, infection, scarring, change in contour of the skin, damage to the bowel or other structures, incisional hernias, and other unforeseen comorbidities. I did offer to call her Electronically Signed By: MATILDE MURILLO MD 12/30/21 0709 PATIENT NAME: DIONY AGUILERA OPERATIVE REPORT DATE OF : 62 REPORT #: [id number] PHYSICIAN: MATILDE MURILLO MD PCP: ALEXANDER ESPOSITO MD REPORT IS CONFIDENTIAL AND NOT TO BE RELEASED WITHOUT AUTHORIZATION [address] [address] Signed , she took care of that and then he had to go to work today, so he was not here this morning. She had expressed understanding and wished to proceed. DESCRIPTION OF PROCEDURE: Diony was taken into the operating room and placed in supine position under general endotracheal tube anesthesia. She was already on preoperative antibiotics as well as subcutaneous Lovenox. SCDs were utilized. Ellison catheter had been inserted with return of clear yellow urine without difficulty. Nasogastric tube had also been placed. After this, a standard periumbilical midline incision was made, carried into the abdomen bluntly and with the cautery. We did encounter some turbid fluid in the left lower quadrant of the abdomen down into the pelvis, which was easily irrigated and suctioned out. It took a few minutes to free up some minimum on her left lateral pelvic sidewall and up the white line of Toldt just a short distance, that gave us access to the sigmoid colon underneath take down the white line of Toldt from the mesentery. We could see one small perforation about 3 mm in diameter right on the anterior taenia coli. We examined that area of the colon up and down very carefully and the rest of it was quite healthy-appearing. We went ahead and closed that small hole with one 3-0 [id number] Vicryl suture. We then used interrupted 3-0 silk Lembert sutures transversely from the lateral side of mesentery around to the medial side of mesentery to invert that small perforation. One could easily palpate the lumen quite nicely with the index finger in the thumb. We then used a couple of liters of warm saline solution to irrigate the abdomen. We suctioned that out until clear. I confirmed the NG tube in the antrum of her stomach by visualization and palpation. The rest of her abdomen was quite clean. We then returned the bowel to its position, and we closed the midline fascia with interrupted #1 PDS [id number] sutures. We injected local anesthetic into the abdominal wall. After this, our anesthesia provider had provided bilateral rectus sheath blocks as well. We irrigated the wound and had closed the dermis with interrupted 3-0 Monocryl sutures. The skin was reapproximated with armani. Dry gauze and tape were then applied. After this, Diony was awakened from anesthesia, extubated in the OR, and taken to our ICU in stable condition. Matilde Murillo MD ALB/MODL /[id number] Electronically Signed By: MATILDE MURILLO MD 12/30/21 0709 PATIENT NAME: DIONY AGUILERA OPERATIVE REPORT DATE OF : 62 REPORT #: [id number] PHYSICIAN: MATILDE MURILLO MD PCP: ALEXANDER ESPOSITO MD REPORT IS CONFIDENTIAL AND NOT TO BE RELEASED WITHOUT AUTHORIZATION [address] [place], [place] [address] Signed cc: Alexander Esposito MD Patient Chart Matilde Murillo MD Copies: ALEXANDER ESPOSITO MD, ANDREW L MD ~ Electronically Signed By: MATILDE MURILLO MD 12/30/21 0709 PATIENT NAME: DIONY AGUILERA OPERATIVE REPORT DATE OF : 62 REPORT #: [id number] PHYSICIAN: MATILDE MURILLO MD PCP: ALEXANDER ESPOSITO MD REPORT IS CONFIDENTIAL AND NOT TO BE RELEASED WITHOUT AUTHORIZATION
--- NOTE | 2021-12-30 08:00 | NUR ---
REPORT RECEIVED FROM FOLDED CLOTH TAPER RN. PT IS LYING IN BED WITH HER EYES CLOSED. CALL LIGHT WITHIN REACH. NGT IN PLACE AND PATENT. IVF INFUSING VIA PATENT IV. ESPINOZA CATHETER IN PLACE. MIDLINE ABDOMINAL DRESSING C/D/I. WILL CONT TO MONITOR.
--- NOTE | 2021-12-30 11:14 | NUR ---
PT IS AWAKE IN BED, WATCHING TV. VISITOR IN SITTING AT BEDSIDE. PT W/ C/O NAUSEA- PRN ADMINISTERED- SEE EMAR FOR ADMINISTRATION DETAILS. TOLERATING IVF AND MEDICATION ORDERED. CALL LIGHT WITHIN REACH. WILL CONT TO MONITOR.
--- NOTE | 2021-12-30 13:00 | NUR ---
RECEIVED TRANSFER ORDERS FOR PT TO MOVE TO THE MEDICAL FLOOR. REPORT CALLED TO IRON ROGERS WHO WILL BE ASSUMING PT CARE UPON TRANSFER. PT AND HER S.O. AWARE OF PLAN TO TRANSFER. PT C/O NAUSEA AND OSMAN- PRNs ADMINISTERED. UP TO COMMODE WITH ASSIST OF 1. LINENS AND GOWN CHANGED. TOLERATING IVF. ESPINOZA PATENT. NGT TO LIS ORDERED. CALL LIGHT WITHIN REACH. VERBALIZES NEEDS APPROPRIATELY. WILL CONT TO MONITOR.
--- NOTE | 2021-12-30 14:07 | NUR ---
REPORT RECEIVED FROM [facility] CLOTH DOUBLING MACHINE OPERATOR. PT LYING IN BED AWAKE. NG TO WALL LOW INTERMITTENT SUCTIONS, IV PATENT AND RUNNING, ACTIVE BOWEL TONES, MIDLINE INCISION AND MITA CLEAN DRY AND INTACT. PT DENIES NEEDS AT THIS TIME. ALL LIGHT WITHIN REACH.
--- NOTE | 2021-12-30 15:44 | NUR ---
PT RESTING IN BED, STATES PAIN IS REDUCED TO 5/10. DENIES FURTHER NEEDS AT THIS TIME. CALL LIGHT WITHIN REACH .
--- NOTE | 2021-12-30 17:28 | NUR ---
PT C/O NAUSEA, PRN PHENEGRAN ADMINISTERED.
--- NOTE | 2021-12-30 18:35 | NUR ---
PT UP TO BSC, PASSED GAS. NO BM. C/O 04/07 PAIN. BACK TO BED, PRN DILAUDID 1.5 MG ADMINISTERED. DENIES FURTHER NEEDS AT THIS TIME. CALL LIGHT WITHIN REACH.
--- NOTE | 2021-12-30 19:33 | NUR ---
REPORT RECEIVED FROM DAY SHIFT RN. PT LYING IN BED ALERT AND ORIENTED. DENIES NEEDS AT THIS TIME. WHITE BOARD UPDATED. CALL LIGHT IN REACH.
--- NOTE | 2021-12-30 20:55 | NUR ---
CALL LIGHT ANSWERED. IV PUMP ALARMING. NEW BAG IVF INFUSING WNL. PT REPORTS NAUSEA AND ABD PAIN 03/07. PRN FOR PAIN AND N/V ADMIN PER EMAR. FRESH ICE PACK FOR ABD. VS AND I&O COMPLETE.
--- NOTE | 2021-12-30 22:14 | NUR ---
EVENING ASSESSMENT COMPLETE. MIDLINE ABD INCISION WELL APPROXIMATED WITH MITA IN PLACE. OLD DRAINAGE NOTED NEAR UMBILICUS. BOWEL TONES HYPOACTIVE. PT REPORTS FLATUS. ABD MILDLY DISTENDED AND FIRM. NGT TO LIWS WITH GREEN DRAINAGE. SCANT AMOUNT OF RED COLORED DRAINAGE NOTED. ESPINOZA PATENT WITH CONCENTRATED URINE. SECUREMENT DEVICE PLACED. SCD'S ON. 2L/NC PLACED. 2PA TO REPOSITION IN BED. HOB ELEVATED. PT DENIES FURTHER NEEDS. CALL LIGHT IN REACH.
--- NOTE | 2021-12-31 00:15 | NUR ---
PT REPORTS ABD PAIN 8/10 AND COMPLAINS OF NAUSEA. PRN FOR PAIN ADMIN PER EMAR. PRN PHENERGAN ADMIN PER POLICY. PT DENIES PAIN WITH INFUSION. NGT TO LIWS PATENT WITH DARK GREEN DRAINAGE. HOB ELEVATED. COOL CLOTH TO FOREHEAD. 2L/NC IN PLACE. SpO2 93%. HR 70'S.
--- NOTE | 2021-12-31 03:10 | NUR ---
ROUNDING NOTE. PT FOUND SITTING ON SIDE OF BED. REPORTS SHE HAD BEEN UP TO BSC TO ATTEMPT HAVE BM OR PASS GAS WITH NO RESULTS. DISCUSSED SAFETY AND FOR PT TO CALL FOR ASSIST. PT VERBALIZES UNDERSTANDING. SBA WITH FWW TO AMB TO NURSES STATION AND BACK TO BED, VIVEK WELL. PRN ADMIN FOR REPORTS OF 7/10 NECK/ABD PAIN PER EMAR. BOWEL TONES ABSENT. PT DENIES FLATUS FOR LAST SEVERAL HOURS. ABD SLIGHTLY DISTENDED AND FIRM. NGT PATENT WITH DARK GREEN DRAINAGE. MIDLINE INCISION WELL APPROXIMATED WITH MITA IN PLACE. NO REDNESS OR DRAINAGE NOTED. FEW ICE CHIPS PROVIDED. NO FURTHER NEEDS. BED ALARM FOR SAFETY. CALL LIGHT IN REACH.
--- NOTE | 2021-12-31 03:54 | NUR ---
CALL LIGHT ANSWERED. PT REPORTS ABD PAIN 03/07. PRN FOR PAIN ADMIN PER EMAR. NO FURTHER NEEDS.
--- NOTE | 2021-12-31 06:22 | NUR ---
VS AND I&O COMPLETE. PT REPORTS PAIN IS TOLERABLE AT THIS TIME. FRESH ICE TO INCISION. A FEW ICE CHIPS PROVIDED. NO FURTHER NEEDS. CALL LIGHT IN REACH.
--- NOTE | 2021-12-31 08:17 | NUR ---
MORNING ASSESSMENT COMPLETE. HYPOACTIVE BOWEL TONES, NG TO LOW INTERMITTENT SUCTIONS, MIDLINE INCISION WITH MITA WELL APPROXIMATED, CLEAN DRY AND INTACT. PT C/O 02/04 PAIN, PRN DILAUDID GIVEN. ICE PACK PROVIDED. DNEIES FURTHER NEEDS AT THIS TIME. CALL LIGHT WITHIN REACH.
--- NOTE | 2021-12-31 10:29 | NUR ---
PATIENT IN BED RESTING AT THIS TIME. VITALS AND I&O'S CHARTED. TEMP. A LITTLE HIGH AND PATIENT COMPLAINED OF SOME PAIN, RN NOTIFIED. CALL LIGHT IN REACH. NO FURTHER NEEDS AT THIS TIME.
--- NOTE | 2021-12-31 10:59 | NUR ---
PT C/O MIGRAINE, PAIN 04/07. DR MURILLO ORDER FOR BENADRYL, PHENEGRAN AND TORADOL ADMINISTERED. ICE PACKS PROVIDED.
--- NOTE | 2021-12-31 12:27 | NUR ---
PT RESTING IN BED, AWAKENS EASILY. SLIGHTLY DIAPHORETIC. STATES SHE WAS FEELING HOT, THOUGH THAT HAS PASSED, ALSO STATES HER MIGRAINE IS IMPROVED. NG TO LOW INTERMITTENT SUCTION. PT ON 2L O2 NC, SATS 95%. DENIES NEEDS AT THIS TIME. CALL LIGHT WITHIN REACH.
--- NOTE | 2021-12-31 13:02 | NUR ---
PT ATTEMPTED TO GET OUT OF BED, STATES SHE FEELS ANXIOUS AND NEEDS TO GET OUT OF BED. REMOVED ESPINOZA CATHETER PER DR MURILLO NOTE. PT UP ONE PERSON STANDB ASSIST TO RECLINER. PT STATES ANXIETY IMPROVING. DENIES FURTHER NEEDS AT THIS TIME. CALL LIGHT WITHIN REACH.
--- NOTE | 2021-12-31 14:44 | NUR ---
CALL TO DR. MURILLO. PATIENT TO HAVE PICC/MIDLINE CONSULT R/T LEFT ARM RESTRICTION. PATIENT NURSE AND PATIENT NOTIFIED.
--- NOTE | 2021-12-31 16:05 | NUR ---
PT AWAKE IN BED, VISITING WITH FAMILY. DISCUSSION REGARDING POST OP PROGRESS, NG OUTPUT, PAIN MEDICATIONS AND INCISION CARE. ALL QUESTIONS ANSWERED, PT VERBALIZED UNDERSTANDING. STATES SHE "FEELS BETTER THAN YESTERDAY AND THIS MORNING" DENIES NEEDS AT THIS TIME. CALL LIGHT WITHIN REACH.
--- NOTE | 2021-12-31 17:03 | NUR ---
PT AWAKE IN BED VISTIING FAMILY. DENIES NEEDS AT THIS TIME. CALL LIGHT WITHIN REACH.
--- NOTE | 2021-12-31 18:31 | NUR ---
PT AMBULATED HALLWAY TO NURSES STATION AND BACK, USED COMMODE HAD SMALL BM AND PASSED GAS. PT C/O 02/04 PAIN, PRN DILUADID GIVEN. DENIES FURTHER NEEDS AT THIS TIME. CALL LIGHT WITHIN REACH.
--- NOTE | 2021-12-31 19:38 | NUR ---
REPORT RECEIVED FROM DAY SHIFT RN. PT LYING IN BED ON LEFT SIDE. ALERT AND ORIENTED. REPORTS PAIN IS TOLERABLE AT THIS TIME. DENIES NEEDS. WHITE BOARD UPDATED. CALL LIGHT IN REACH.
--- NOTE | 2021-12-31 20:35 | NUR ---
V/S, I&O'S COMPLETED. WHITE BOARD UPDATED. CHANGED NEW CANISTER. PRIMARY RN WAS WITH PATIENT.
--- NOTE | 2021-12-31 21:07 | NUR ---
EVENING ASSESSMENT COMPLETE. SCHEDULED MEDS ADMIN PER EMAR. PT REPORTS ABD PAIN 9/10 AND NAUSEA. PRN ADMIN PER EMAR. IVF INFUSING WNL. MIDLINE INCISION WELL APPROXIMATED WITH MITA. NO REDNESS OR DRAINAGE NOTED. BOWEL TONES ACTIVE. PT REPORTS FLATUS. NGT PATENT WITH DARK GREEN DRAINAGE. ELEVATED TEMP NOTED. ENCOURAGED IS USE. PT REFUSES AT THIS TIME. 2L/NC IN PLACE. FEW ICE CHIPS AND ICE PACK FOR ABD PROVIDED. SCD'S IN PLACE. ASSISTED TO REPOSITION IN BED. HOB ELEVATED. PT DENIES FURTHER NEEDS. CALL LIGHT IN REACH.
--- NOTE | 2021-12-31 22:25 | NUR ---
IV PUMP ALARMING. ISSUE RESOLVED. PT REPOSITIONING SELF IN BED "TO FIND THE RIGHT SPOT." REPORTS ABD PAIN 04/07. PRN FOR PAIN ADMIN PER EMAR.
--- NOTE | 2021-12-31 23:22 | NUR ---
PT UP TO BR WITH SBA TO VOID AN UNMEASURED AMOUNT OF CONCENTRATED YELLOW URINE. AMB TO END OF GARZA AND BACK WITH FWW AND SBA. VIVEK WELL. BACK TO BED. PRN FOR 7 ABD PAIN ADMIN. NGT TO LIWS. SCD'S IN PLACE. NEW BAG IVF INFUSING WNL. A FEW ICE CHIPS AND ICE PACK PROVIDED FOR ABD. NO FURTHER NEEDS. CALL LIGHT IN REACH.
--- NOTE | 2022-01-01 01:46 | NUR ---
IV ABX INFUSING WNL. PT REPORTS ABD PAIN 01/05. PRN FOR PAIN ADMIN PER EMAR. NO FURTHER NEEDS.
--- NOTE | 2022-01-01 04:18 | NUR ---
CALL LIGHT ANSWERED. PT UP TO BR WITH SBA TO VOID AN UNMEASURED AMOUNT. AT SINK TO WASH HANDS. BACK TO BED, VIVEK FAIR. PT REPORTS INCREASED PAIN AT THE SUPERIOR ASPECT OF MIDLINE INCISION. ABD SOFT AND MILDLY DISTENDED. BOWEL TONES ACTIVE. PT REPORTS FLATUS. NGT PATENT WITH DARK GREEN DRAINAGE. PRN FOR PAIN ADMIN PER EMAR. SCD'S IN PLACE. VS AND I&O COMPLETE. HOB ELEVATED. CALL LIGHT IN REACH.
--- NOTE | 2022-01-01 06:36 | NUR ---
PT UP TO AMB ONE LAP AROUND NURSING UNIT WITH SBA. TO BR TO VOID 150 ML CONCENTRATED URINE. BACK TO BED, VIVEK FAIR. PT REPORTS FEELING UNABLE TO TAKE A DEEP BREATH DUE TO GAS. SPOT CHECK SpO2 MID 70'S ON RA. 3L/NC PLACED. SpO2 UP TO MID 90'S. OXYGEN TITRATED BACK TO 2L/NC. SECUREMENT DEVICE REPLACED ON NGT. SKIN UNDER SECUREMENT DEVICE INTACT. NO FURTHER NEEDS. CALL LIGHT IN REACH.
--- NOTE | 2022-01-01 07:30 | NUR ---
THIS RN GIVEN SHIFT REPEORT FROM IRON GAYTAN. PATIENT RESTING QUIETLY IN SEMI-FOWLERS POSITION IN BED, EYES CLOSED, RESPIRATIONS ARE EVEN AND CALL LIGHT IS IN REACH.
--- NOTE | 2022-01-01 08:17 | NUR ---
PATIENT CALLED TO USE THE BATHROOM AND GET PAIN AND NAUSEA MEDICATION. THIS RN ASSISTED PATIENT TO THE RESTROOM AND WENT TO GET MEDS. PATIENT BACK IN BED WITH ASSISTANCE FROM ANOTHER RN. PATIENT'S ABD PAIN IS 8/10 AND 1.5MG SIVP DILAUDID GIVEN AFTER 8MG SIVP ZOFRAN GIVEN. PATIENT'S SISTER HAS ARRIVED AND IS VISITING WITH THE PATIENT. CALL LIGHT IS IN REACH. NG-TUBE TO LIWS. AN ASSESSMENT COMPLETE.
--- NOTE | 2022-01-01 09:21 | NUR ---
THIS RN IN TO CHECK ON PATIENT AND HER NAUSEA IS NOT GONE AND PAIN IS STILL 7/10. 12.5MG IV PROMETHAZINE IN 20MLS NS GIVEN PER PROTOCOL AND 30MG TORADOL SIVP GIVEN. PATIENT'S SISTER IS STILL AT BEDSIDE VISITING. CALL LIGHT IN REACH AND PATIENT HAS NO OTHER CARE NEEDS AT THIS TIME.
--- NOTE | 2022-01-01 10:40 | NUR ---
THIS RN IN TO CHECK ON PATIENT AND NAUSEA HAS SUBSIDED AND PAIN IS 4/10 AND PATIENT REQUESTING PAIN MEDICATION SO 1.5MG SIVP DILAUDED GIVEN. PATIENT SAYS SHE WANTS TO TRY AND TAKE A LITTLE NAP AND THEN SHE WILL TRY TO GET UP AND WALK. CALL LIGHT IS IN REACH AND BED ALARM IS ON. SISTER REMAINS AT BEDSIDE.
--- NOTE | 2022-01-01 12:24 | NUR ---
PARMINDER THE PICC LINE NURSE IS HERE PLACING THE PICC LINE AT THIS TIME.
--- NOTE | 2022-01-01 13:29 | NUR ---
PICC INSERTION NOTE. ORDERS RECIEVED TO EVALUATE MARU FOR POSSIBLE PICC INSERTION. AFTER REVIEWING THE CHART AND INTERVIEWING THE PATIENT, NO ABSOLUTE CONTRAINDICATIONS WERE FOUND. RISKS AND COMPLICATIONS OF PICC LINES WERE DISCUSSED WITH THE PATIENT AND HER SISTER AND INFORMED CONSENT WAS SIGNED PRIOR TO THE START OF THE PROCEDURE. THE RIGHT ARM WAS EVALUATED WITH U/S AND THE RIGHT BASILIC VEIN IS MEASURED AT 1.5 CM BELOW THE SURFACE OF THE SKIN. A 4 FR PICC WILL TAKE UP 32% OF THE VESSEL PER [facility]. STERILE TECHNIQUE WAS USED FOR THE DURATION OF THE PICC INSERTION AND DRESSING APPLICATION. THE RIGHT BASILIC VEIN WAS ACCESSED ON THE FIRST ATTEMPT BUT THE GUIDEWIRE WOULD NOT EASILY PASS UP THE VEIN. A PROXIMAL LOCATION WAS IDENTIFIED AND THE VEIN WAS AGAIN CANNULATED. THE GUIDEWIRE PASSED EASILY UP THE VEIN AND THERE WAS NO DIFFICULTY ADVANCING THE INTRODUCER OR PICC. MAGNET TRACKING AND [facility] TPS LOCATION WAS USED TO ADVANCE THE LINE TO A CENTRAL LOCATION. P WAVE ENLARGEMENT WAS OBSERVED AND THE LINE ADVANCED UNTIL AMPLITUDE WAS NEARLY LARGE THE R WAVE. A DRESSING WAS APPLIED AND A CXR TAKEN. WE AWAIT THE RESULTS OF THE CXR PRIOR TO USING THE LINE. THE LINE FLUSHES AND DRAWS BLOOD EASILY. REPORT GIVEN TO INSPECTOR MISSILE TERRY.
--- NOTE | 2022-01-01 14:05 | NUR ---
I had the opportunity to meet with Diony today, she is awake and setting up in bed with Humberto on and sister and fiance in the room with her. Diony reports that [facility]. She does have an NG at this time hooked to wall suction with green fluid on return, noted in tubing and cannister. Patient states that her medications have been explained to her, and she understands her medications. Patient and fiance do report that they do not have concerns with ability to purchase medications, groceries, or pay for utilities, etc. Questions are answered, patient is oriented and answers questions appropriately.
--- NOTE | 2022-01-01 14:26 | NUR ---
PT ALERT, ORIENTED AND VISITING WITH SISTER. PT HAS NGT, DRAINING FLUID. GAVE ENCOURAGEMENT, PT FEELS INFORMED HAS NO NEEDS AT THE MOMENT. LEFT G.POST, HER SISTER SAID REMEMBER MOM USED TO GIVE US THESE. GAVE BLESSING, WILL FOLLOW NEEDED
--- NOTE | 2022-01-01 14:31 | NUR ---
THIS RN IN TO SEE PATIENT. RADIOLOGY CONFIRMED PICC PLACEMENT AND MAIN LINE FLUIDS SWITCHED FROM PERIPHERAL IV, WHICH IS SALINE LOCKED NOW, TO THE PICC LINE AFTER FLUSHING WITH 20MLS NS AFTER NOTED BLOOD DRAW IN THE LINE.PATIENT DENIED ANY CARE NEEDS AT THIS TIME, BUT SAYS THAT SHE WOULD CALL IF SHE NEEDS ANYTHING. CALL LIGHT IN REACH AND SISTER AT BEDSIDE.
--- NOTE | 2022-01-01 15:01 | NUR ---
PATIENT CALLED HAVING 7/10 ABD PAIN AND NAUSEA. 1MG SIVP DILAUDID GIVEN AFTER 12.5MG PROMETHAZINE IV IN 20MLS NS. PATIENT DENIES ANY OTHER CARE NEEDS AT THIS TIME. CALL LIGHT IN REACH. PATIENT'S SISTER IS GOING HOME FOR AWHILE.
--- NOTE | 2022-01-01 16:53 | NUR ---
PATIENT CALLED AND SAYS HER PAIN IS INCREASSING AND IS AT 9/10 IN THE ABD AT THIS TIME. 1MG SIVP DILAUDID GIVEN WELL 30MG IV TORADOL SIVP. PATIENT SAYS SHE IS ALREADY STARTING TO FEEL SOME RELIEF. PATIENT DENIES ANY OTHER CARE NEEDS AT THIS TIME. CALL LIGHT IS IN REACH.
--- NOTE | 2022-01-01 17:30 | NUR ---
THIS RN IN TO SEE PATIENT. PATIENT'S PAIN IS DOWN TO 4/10 AND SHE IS COMFORTABLE AT THIS TIME. PATIENT DENIES ANY OTHER CARE NEEDS AT THIS TIME. CALL TACO FAN.
--- NOTE | 2022-01-01 18:24 | NUR ---
PATIENT RESTING IN BED WATCHING TV. PAIN IS STILL 4/10 AND PATIENT DENIES THE NEED FOR PAIN OR NAUSEA MEDICATION AT THIS TIME. PATIENT HAS NO OTHER CARE NEEDS AT THIS TIME. CALL LIGHT IS IN REACH.
--- NOTE | 2022-01-01 19:39 | NUR ---
THIS RN AND IRON GAYTAN WENT IN THE ROOM. PATIENT HAS NOT VOIDED IN OVER 4 HOURS , SO PATIENT GOT UP TO THE BATHROOM AND VOIDED. PATIENT STARTED HAVING CHEST PRESSURE AFTER RETURNING TO BED. THIS RN CALLED AND INFORMED HIM PATIENT HAVING 5/10 CHEST PRESSURE AND HER URINE OUTPUT HAS BEEN LOW THE LAST 4 HOURS. PATIENT'S O2 SATS STILL IN THE 80'S AFTER TITRATING UP FROM 2L TO 4L/NC. GAVE ORDERS TO GET AN EKG AND CALL TO CONSULT. THIS RN CALLED AND TOLD HIM WHAT IS HAPPENING AND HE ORDERED A TROPONIN WITH THE EKG AND SAYS HE WILL BE DOWN TO SEE THE PATIENT. CALL JULIETTE FAN. IN GETTING EKG AND IRON GAYTAN DRAWING LABS.
--- NOTE | 2022-01-01 19:45 | NUR ---
REPORT RECEIVED FROM DAY SHIFT RN. PT UP TO BR WITH SBA WEARING 2L/NC TO VOID. BACK TO BED. SPOT CHECK SpO2. SATS MID 70'S. OXYGEN TITRATED TO 4L/NC. PT REPORTS "HEAVINESS" IN CHEST. DAY SHIFT RN CALLED DR. MURILLO. ORDERS RECEIVED. RT IN ROOM FOR EKG. LABS DRAWN FROM PICC AND SENT TO LAB PER PROTOCOL. PT REPORTS PAIN IN CHEST IMPROVED AFTER REST. SpO2 97-100% ON 4L/NC. OXYGEN TITRATED TO 3L/NC. HR 70'S. RESPIRATIONS UNLABORED. PT REPORTS SHE IS COMFORTABLE AT THIS TIME. CALL LIGHT IN REACH.
--- NOTE | 2022-01-01 20:58 | NUR ---
PHONE CALL FROM IMAGING, UPDATED ON PERIPHERAL ACCESS, POWER PICC. ORDERS UPDATED PER MD VERBAL ORDER FOR CTA PER IMAGING REQUEST. PRIMARY RN LUCILA AND BILL RECAPITULATION CLERK MARIBEL IN ROOM.
--- NOTE | 2022-01-01 21:10 | NUR ---
CALL LIGHT ANSWERED. PT REPORTS ABD PAIN 7/10 AND NAUSEA. PRN FOR PAIN AND NAUSEA ADMIN PER EMAR. PT UP TO BR TO VOID AND HAVE SMALL FORMED BM. BACK TO BED. DYSPNEA NOTED WITH ACTIVITY. OXYGEN TITRATED TO 4L/NC PRIOR TO ACTIVITY. SpO2 REMAINED >90%. PT REPORTS BREATHING IMPROVES AFTER A FEW MINUTES OF REST. OXYGEN TITRATED BACK TO 3L/NC. EVENING ASSESSMENT COMPLETE. ABD MILDLY DISTENDED AND FIRM. BOWEL TONES ACTIVE. MIDLINE INCISION WELL APPROXIMATED WITH STAPES INTACT. NGT TO LIWS WITH DARK GREEN DRAINAGE. PICC LINE IN RIGHT UPPER ARM FLUSHED PER PROTOCOL. BRISK BLOOD RETURN NOTED. PICC SITE BRUISED. TIRE SPOTTER ON FLOOR TO TAKE PT TO CT VIA WC. NGT CLAMPED. PICC LINE SL.
--- NOTE | 2022-01-01 21:42 | NUR ---
PT BACK TO FLOOR FROM CT. NGT BACK TO LIWS. IVF INFUSING WNL. 3L/NC IN PLACE. SpO2 97%. HR 70'S. PT REPORTS PARTIDA BUT IS ABLE TO RECOVER AFTER A FEW MINUTES OF REST. HOB ELEVATED. FEW ICE CHIPS PROVIDED. VISITOR AT BEDSIDE. NO FURTHER NEEDS.
--- NOTE | 2022-01-01 22:43 | NUR ---
CALL LIGHT ANSWERED. PT REPORTS NAUSEA. PRN PHENERGAN ADMIN PER PROTOCOL. PT DENIES PAIN WITH INFUSION. NO FURTHER NEEDS.
--- NOTE | 2022-01-01 23:53 | NUR ---
PT REPORTS ABD PAIN 04/07. PRN FOR PAIN ADMIN PER EMAR. UP TO BR WITH SBA TO VOID 200 ML CONCENTRATED URINE. AT SINK TO WASH HANDS. BACK TO BED, VIVEK WELL. PT USING INCENTIVE SPIROMETER. INCREASED COUGH NOTED. PT STATES "I FEEL LIKE I'M BREATHING BETTER". REPORTS FEELING FEBRILE. TEMP 99.4. EXTRA BLANKETS REMOVED.
--- NOTE | 2022-01-02 02:00 | NUR ---
CALL LIGHT ON. pt UP TO VOID AND BACK TO BED. SHORT OF BREATH, WHILE AMBULATING WITH 3L 02 VIA NC. UNABLE TO SPEAK IN COMPLETE SENTENCES, ONLY THREE TO FOUR WORDS AT A TIME. O2 SAT MID TO LOW 90'S. NG TO LIS. LUNGS CLEAR IN LOWERS, RUB AUSCULATED BILATERALY IN UPPERS. pt COMPLAINED OF NAUSEA. PRIMARY RN UPDATED. CALL LIGHT WITHIN REACH.
--- NOTE | 2022-01-02 02:35 | NUR ---
PT REPORTS NAUSEA AND PAIN IN ABD WELL "AIR TRAPPED UP THERE" REFERRING TO "UNDER RIGHT SHOULDER". WARM COMPRESS PROVIDED. PRN FOR PAIN AND N/V ADMIN PER EMAR. PT REPORTS DYSPNEA IMPROVED WITH REST. PT ALSO ABLE TO SPEAK IN COMPLETE SENTENCES AT THIS TIME. LUNGS SOUND COURSE THROUGHOUT. PT REPORTS INCREASE IN COUGH AND SPUTUM PRODUCTION. HOB ELEVATED. 3L/NC IN PLACE.
--- NOTE | 2022-01-02 04:09 | NUR ---
IV PUMP ALARMING. NEW BAG IVF INFUSING WNL. PT RESTING WITH EYES CLOSED. RESPIRATIONS EVEN. CALL LIGHT IN REACH.
--- NOTE | 2022-01-02 06:20 | NUR ---
PT DOZING ON AND OFF. VS AND I&O COMPLETE. MORNING LABS DRAWN FROM RIGHT PICC PER PROTOCOL. IVF BACK TO INFUSING WNL. PT DENIES NEEDS AT THIS TIME.
--- NOTE | 2022-01-02 07:30 | NUR ---
SHIFT REPORT RECEIVED BY THIS RN FROM IRON GAYTAN. PATIENT RESTING QUIETLY NOW IN BED IN SEMI-FOWLERS POSITION, EYES CLOSED, RESPIRATIONS ARE REGULAR AND EVEN, AND CALL LIGHT IS IN REACH. PATIENT HAS NO OTHER CARE NEEDS AT THIS TIME.
--- NOTE | 2022-01-02 08:20 | NUR ---
THIS RN IN TO SEE PATIENT. WROTE TO DC NG TUBE AND THIS RN DID THIS AT THIS TIME. PATIENT SAYS SHE FEELS MUCH BETTER WITHOUT IT. CALL LIGHT IN REACH. PATIENT TOLERATED THE REMOVAL OF THE NG TUBE WELL.
--- NOTE | 2022-01-02 08:31 | NUR ---
PATIENT CALLED FOR NAUSEA AND PAIN MEDS. ABD PAIN 02/04. THIS RN GAVE 12.5MG IV PHENERGAN PER PROTOCOL IN 20MLS NS AND 1.5MG SIVP DILAUDED FOR THE PAIN. OTHER AM MEDS GIVEN AND PATIENT TOLERATED TAKING PO MEDS AND A LITTLE CLEAR LIQUIDS FOR BREAKFAST. PATIENT UP TO THE REST ROOM AND BACK TO BED WITH FWW AND 1PSBA BY THIS RN. PATIENT DENIES ANY OTHER CARE NEEDS AT THIS TIME. CALL LIGHT IN REACH.
--- NOTE | 2022-01-02 10:16 | NUR ---
THIS RN IN AND TALKED WITH PATIENT. PAIN IS 2/10 AND NAUSEA IS GONE. PATIENT FEELS COMFORTABLE. INFORMED PATIENT I AM GIVING HER IV LASIX AND SHE WILL NEED TO VOID SHORTLY. PATIENT VERBALIZED UNDERSTANDING. CALL LIGHT IN REACH. PATIENT HAS NO OTHER CARE NEEDS FROM THIS RN AT THIS TIME.
--- NOTE | 2022-01-02 10:45 | NUR ---
PATIENT UP TO BATHROOM AND BACK TO BED, SBA. VISITOR IN ROOM. VITALS AND I&O'S CHARTED. CALL LIGHT IN REACH. NO FURTHER NEEDS AT THIS TIME.
--- NOTE | 2022-01-02 11:04 | NUR ---
THIS RN IN TO SEE PATIENT. PATIENT UP TO THE REST ROOM AND BACK TO BED 1PA. K+ RIDER HUNG AND IS RUNNING WELL THE 1000 ANTIBIOTIC. PATIENT DENIES THE NEED FOR PAIN OR NAUSEA MEDS AT THIS TIME. CALL LIGHT IS IN REACH.
--- NOTE | 2022-01-02 11:38 | NUR ---
PATIENT UP TO THE BATHROOM WITH 1PSBA AND FWW THEN BACK TO BED. FRIEND ASSISTING PATIENT INTO THE RESTROOM AND BACK. PATIENT'S ABD PAIN IS 2/10 AND SHE IS COMFORTABLE. NAUSEA IS ALSO GONE. CALL LIGHT IS IN REACH AND PATIENT HAS NO CARE NEEDS FROM THIS RN AT THIS TIME.
--- NOTE | 2022-01-02 13:16 | NUR ---
PATIENT UP TO THE BATHROOM AND THEN WALKED A LAP AROUND THE MED/SURG UNIT AND BACK TO BED. PATIENT WAS NOT HURTING OR NAUSEATED BEFORE THE WALK, BUT 6/10 ABD PAIN AND NAUSEA ON RETURN TO THE ROOM AND TO BED. 1MG SIVP DILAUDID, 8MG SIVP ZOFRAN, AND 30MG SIVP TORADOL GIVEN. PATIENT DENIES ANY OTHER CARE NEEDS AT THIS TIME. CALL LIGHT IS IN REACH AND PATIENT'S SISTER IS AT BEDSIDE.
--- NOTE | 2022-01-02 14:22 | NUR ---
THIS RN IN TO SEE PATIENT. PATIENT REMAINS NAUSEATED AND 12.5MG IV PROMETHAZINE IN 20MLS NS GIVEN. PATIENT CURRENTLY GETTING A ECHO WITH US IN HER ROOM. CALL LIGHT ISIN REACH AND NO OTHER CARE NEEDS FROM THIS RN ARE NEEDED AT THIS TIME.
--- NOTE | 2022-01-02 15:09 | NUR ---
THIS RN IN TO SEE PATIENT. PATIENT'S PAIN IS 4/10 AND HER NAUSEA IS GONE AND SHE IS COMFORTABLE AT THIS TIME. PATIENT STILL VISITING WITH HER SISTER. PATIENT DENIES ANY OTHER CARE NEEDS AT THIS TIME. PM ASSESSMENT DONE. CALL LIGHT ISIN REACH. LUNGS MUCH CLEARER.
--- NOTE | 2022-01-02 15:43 | NUR ---
PATIENT'S PICC LINE FLUSHED WITH 20MLS NS AND HEPLOCKED FOR A SHOWER. PAIN AND NAUSEA ARE CONTROLLED. ASTRID LILLY' GETTING PATIENT INTO THE SHOWER.
--- NOTE | 2022-01-02 17:35 | NUR ---
Patient not ready for discharge at this time, will continue to monitor for needs at discharge when patient is ready to dc.
--- NOTE | 2022-01-02 18:00 | NUR ---
PATIENT RESTING QUIETLY IN BED ON HER LEFT SIDE. PATIENT PAIN AND NAUSEA HAVE BEEN MUCH MORE CONTROLLED TODAY AFTER THE NG-TUBE WAS PULLED. PATIENT NOT EATING A LOT, BUT TOLERATING HER CLEAR LIQUID DIET. PATIENT'S IV FLUIDS ARE OFF EXCEPT FOR ANTIBIOTICS. BOWEL TONES ARE ACTIVE AND PATIENT IS PASSING GAS. PATIETN GIVEN LASIX TODAY AND SHE HAS PUT OUT A LOT OF URINE AND AIR MOVEMENT IN THE LUNGS HAS INCREASED AND PATIENT SOUNDS CLEARER, BUT REMAINS ON 3L/NC. CALL LIGHT IS IN REACH AND PATIENT HAS NO CARE NEEDS FROM THIS RN AT THIS TIME.
--- NOTE | 2022-01-02 19:07 | EKG ---
[facility] [address] [place] [address] Signed Sinus rhythm with premature atrial complexes Otherwise normal ECG When compared with ECG of 20-DEC-2021 09:55, premature atrial complexes are now present Confirmed by MARVIN GRIGGS MD ([id number]) on 01/02/2022 7:06:59 PM Electronically Signed By: MARVIN GRIGGS MD 01/02/22 1907 PATIENT NAME: MARU AGUILERA Electrocardiogram DATE OF : 62 PHYSICIAN: MARVIN GRIGGS MD REPORT #: [id number] REPORT IS CONFIDENTIAL AND NOT TO BE RELEASED WITHOUT AUTHORIZATION
--- NOTE | 2022-01-02 19:14 | NUR ---
THIS RN CALLED PATIENT CALLED FELLING SHORT OF BREATH AND RESPS WERE 30 WITH INSPIRATORY WHEEZES IN THE LEFT LUNG LAU. ALL OTHER VS STABLE. IS PUTTING IN ORDERS.
--- NOTE | 2022-01-02 19:24 | NUR ---
REPORT RECEIVED FROM DAY SHIFT RN. PT LYING IN BED ALERT AND ORIENTED. REPORTS SOB AFTER RETURNING TO BED FROM BR AND RIGHT SHOULDER PAIN THAT SHE DESCRIBES "AIR TRAPPED". VSS. SpO2 98% ON 3L/NC. HR 80'S. PT REPORTS BREATHING IMPROVED WITH REST. WARM COMPRESS AND CLEAR LIQUIDS PROVIDED. NO FURTHER NEEDS. WHITE BOARD UPDATED. CALL LIGHT IN REACH.
--- NOTE | 2022-01-02 20:52 | NUR ---
CALL LIGHT ANSWERED PT UP TO BR WITH SBA TO VOID AND HAVE SMALL BM. BACK TO BED. PARTIDA NOTED. SpO2 LOW 90'S WITH 3L/NC IN PLACE AFTER ACTIVITY. PT REPORTS BREATHING IMPROVES AFTER REST. REPORTS ABD PAIN/RIGHT SHOULDER PAIN 6/10 AND NAUSEA. PRN FOR PAIN AND NAUSEA ADMIN PER EMAR. PICC IN RIGHT UPPER ARM FLUSHED WITH NS. BRISK BLOOD RETURN NOTED. SITE WNL. MIDLINE INCISION WELL APPROXIMATED WITH MITA INTACT. NO REDNESS OR DRAINAGE NOTED. ABD SOFT AND MILDLY DISTENDED. BOWEL TONES ACTIVE. PT DENIES FURTHER NEEDS. CALL LIGHT IN REACH.
--- NOTE | 2022-01-02 22:05 | NUR ---
IV ANTIBIOTIC COMPLETE. IV FLUSHED, SL. PT WITH NO NEEDS AT THIS TIME.
--- NOTE | 2022-01-03 00:10 | NUR ---
PT RESTING IN BED WITH EYES CLOSED. RESPIRATIONS EVEN. CALL LIGHT IN REACH.
--- NOTE | 2022-01-03 02:00 | NUR ---
IN ROOM FOR ABX ADMIN. PT REPORTS ABD PAIN AND NAUSEA. PRN FOR NAUSEA AND PAIN ADMIN PER EMAR. SBA TO BR TO VOID 150 ML CONCENTRATED URINE. PT ABLE TO DO OWN STEPHANIE CARE. BACK TO BED. INCREASED RESPIRATIONS WITH ACTIVITY NOTED. SpO2 96% ON 3L/NC. HR 70'S. PRN BREATHING TX OFFERED, PT DECLINED. HOB ELEVATED. NO FURTHER NEEDS. CALL LIGHT IN REACH.
--- NOTE | 2022-01-03 03:25 | NUR ---
CALL LIGHT ANSWERED. PT UP TO BR WITH SBA TO VOID. BACK TO BED. PT REPORTS ABD PAIN 01/05. PRN FOR PAIN ADMIN PER EMAR. PT REPORTS SOB WITH ACTIVITY THAT IMPROVES WITH REST. OXYGEN IN PLACE. SODA PROVIDED PER REQUEST. NO FURTHER NEEDS.
--- NOTE | 2022-01-03 06:58 | NUR ---
VS AND I&O COMPLETE. MORNING LABS DRAWN FROM RIGHT PICC PER PROTOCOL. PT REPORTS ABD PAIN 01/05. PRN FOR PAIN ADMIN PER EMAR. PT DENIES SOB AT REST. 3L/NC IN PLACE. NO FURTHER NEEDS. CALL LIGHT IN REACH.
--- NOTE | 2022-01-03 08:10 | NUR ---
MORNING ASSESSMETN COMPLETE. PT LYING AWAKE IN BED, 3L O2 NC. STATES PAIN IS IMPROVED, 10/05. PICC LINE FLUSHED, GOOD BLOOD RETURN. MIDLINE INCISION CDI, MILDLY DISTENDED ABDOMEN WITH ACTIVE BOWEL TONES. PT DENIES NEEDS AT THIS TIME. CALL LIGHT WITHIN REACH.
--- NOTE | 2022-01-03 09:17 | NUR ---
INFORMED DR GRIGGS THAT MORNING LASIX 20MG PO NOT GIVEN POTASSIUM LAB RESULT 3.2. NO NEW ORDERS AT THIS TIME.
--- NOTE | 2022-01-03 10:11 | NUR ---
PT RESTING QUIETLY WITH EYES CLOSED, AWAKENS EASILY. DENIES NEEDS AT THIS TIME. CALL LIGHT IWTHIN REACH.
--- NOTE | 2022-01-03 11:50 | NUR ---
PT AWAKE IN BED VISITING FAMILY. REFILLED ICE WATER, DENIES NEEDS AT THIS TIME. CALL LIGHT WITHIN REACH.
--- NOTE | 2022-01-03 13:17 | NUR ---
PT C/0 10 ABDOMINAL PAIN AND NAUSEA. ZOFRAN AND DILUADID ADMINISTERED. PT AUDIBLY WHEEZING, AGREABLE TO BREATHING TREATMENT, WILL CALL RT. DENIES FURTHER NEEDS AT THIS TIME.
--- NOTE | 2022-01-03 16:30 | NUR ---
ASSISTED PT TO RESTROOM AND BACK TO BED. PT C/O 12/05 PAIN, PRN PERCOCET GIVEN. DENIES FURTHR NEEDS AT THIS TIME CALL LIGHT WITHIN REACH.
--- NOTE | 2022-01-03 17:08 | NUR ---
Patient is awake and alert, answers questions appropriately. Pt states that she is feeling better and "happy" about NG tube being taken out. She still plans to go home upon discharge and reports that she feels that she has adequate help at home to have her home care needs met. No questions or concenrs expressed at this time.
--- NOTE | 2022-01-03 19:30 | NUR ---
REPORT RECEIVED . PT IS IN BED TALKING ON HER PHONE. NO NEEDS AT THIS TIME. CALL LIGHT IN REACH
--- NOTE | 2022-01-03 20:39 | NUR ---
PT UP TO THE BATHROOM WITH SBA . SHE IS SPLINTING HER ABD. VOIDED AND WAS ASSISTED BACK TO BED. PT THEN STATED SHE HAS ABD PAIN SHE RATES 6/10 AND INCREASING. STATED THE PERCOCET DID NOT HELP WITH PAIN. PT IS GIVEN DIALUDID 1 MG SLOW IVP. FOR PAIN. THEN SUGGESTED SHE TAKE A COUPLE SLOW DEEP BREATHS AND RELAX INTO THE BED.
--- NOTE | 2022-01-03 21:09 | NUR ---
PT IS ASKING NOT TO TAKE HER SECOND DOSE OF LASIX DUE TONIGHT. SHE HAS BEEN UP TO THE BATHROOM X6 WITH [address] GRIGGS NOTIFIED AND ORDER IS CHANGED TO GIVE THE SECOND DOSE AT 0600 TOMORROW AM.
--- NOTE | 2022-01-03 23:35 | NUR ---
PT UP TO BATHROOM , VOIDED. RATES PAIN 7/10 IN ABD AFTER GETTING BACK TO BED. PT IS GIVEN DILAUDID 1 MG SLOW IVP.
--- NOTE | 2022-01-04 03:28 | NUR ---
PT STATES HER BREATHING FEELS TIGHT, WHEEZING COMING ON. REQUESTED BREATHING TREATMENT. DUONEB GIVEN.
--- NOTE | 2022-01-04 06:55 | NUR ---
PT HAS BEEN UP TO THE BATHROOM FREQUENTLY. URINE IS LIGHT CLEAR YELLOW. OUTPU T LAST NIGHT WAS 1200 AND 1000 BY MORNING.SHE IS ADVANCED TO A REGULAR DIET. LUNGS ARE DIM, COARSE IN LEFT. PT IS PASSING GAS.
--- NOTE | 2022-01-04 08:33 | NUR ---
PT REPORTING SOME NAUSEA AFTER A FEW BITES OF BREAKFAST. PHENERGAN ADMINISTERED. WILL HOLD OFF ON PAIN MEDICATIONS FOR NOW. PT REPORTS 5/10 ABDOMINAL PAIN. PT AGREEABLE TO WAIT FOR PAIN MEDS AT THIS TIME.
--- NOTE | 2022-01-04 09:17 | NUR ---
MORNING ASSESSMENT COMPLETE. PT C/O4/10 ABDOMINAL PAIN, PRN PERCOCOET GIVEN. PT UP TO RESTROOM INDEPENDENTLY. 3L NC O2, LUNG SOUNDS CLEAR. MIDLINE INCISION WITH MITA, OPEN TO AIR, CLEAN, CRY AND INTACT. PT DENIES FURTHER NEEDS AT THIS TIME. CALL LIGHT WITHIN REACH.
--- NOTE | 2022-01-04 10:09 | NUR ---
PATIENT IS SLEEPING. VISITOR IN ROOM. PATIENT IS ON A REGULAR DIET NOW. SHE DID NOT EAT ANY BREAKFAST. NOTED THAT SHE DID NOT HAVE A MENU IN HER ROOM. I BROUGHT ONE UP AND GAVE IT TO THE VISITOR. THE VISITOR WILL WORK WITH THE PATIENT TO ORDER SOMETHING ELSE FOR LUNCH IF SHE IS NOT INTERESTED IN THE HOUSE MEAL FOR LUNCH. THE GOAL WOULD BE FOR THE PATIENT TO INCREASE HER PO INTAKE AND TOLERATE IT. WILL CONTINUE TO MONITOR.
--- NOTE | 2022-01-04 10:21 | NUR ---
PT RESTING QUIETLY WITH EYES CLOSED, RESPIRATIONS EVEN AND UNLABORED. 3L NC O2. FAMILY AT BEDSIDE. CALL LIGHT WITHIN REACH.
--- NOTE | 2022-01-04 11:21 | NUR ---
PT RESTING QUIETLY IN BED WITH EYES CLOSED, RESPIRATIONS EVEN AND UNLABORED. CALL LIGHT WITHIN REACH.
--- NOTE | 2022-01-04 12:24 | NUR ---
PT LYING IN BED WITH EYES CLOSED, AWAKENS EASILY. DISCUSSED AMBULATING IN THE HALLWAY, PT AGREEABLE LATER TODAY. CALL LIGHT WITHIN REACH, DENIES NEEDS AT THIS TIME.
--- NOTE | 2022-01-04 14:23 | NUR ---
FRANKIE SANCHEZ IN ASSISTING PT. WILL CHECK BACK
--- NOTE | 2022-01-04 15:16 | NUR ---
PT C/O 5/10 ABDOMINAL PAIN, RPN PERCOET GIVEN. O2 WEANED TO 1LNC AT 93%. PT DENIES FURTHER NEEDS AT THIS TIME. CALL LIGHT WTIHIN REACH.
--- NOTE | 2022-01-04 16:54 | NUR ---
PT CALL LIGHT ON. PT REQUESTS TO AMBULATE IN THE [place]. 1 PERSON ASSIST FOR LINE AND TUBE MANAGEMENT TO AMBULATE IN [facility]ARZA X1 LAP. PT REPORTS PAIN IS WELL CONTROLED AND DENIES DIZZINESS WITH AMBULATION. PT BACK TO ROOM AND UP TO CHAIR FOR DINNER. PT SISTER REMAINS AT BEDSIDE, NO ADDITIONAL REQUSTS OR COMPLAINTS. CALL LIGHT WITHIN REACH.
--- NOTE | 2022-01-04 18:04 | NUR ---
EVERY OTHER STAPLE REMOVED PER DR MURILLO ORDER. PT TOLERATED WELL. MIDLINE INCISION WELL APPROXIMATED. NO DRAINAGE. WEANED PT TO RA, O2 SAT 94%. WILL KEEP PULSE OX ON TO MONITOR O2 SAT. PT DENIES FURTHER NEEDS AT THIS TIME. CALL LIGHT WITHIN REACH.
--- NOTE | 2022-01-04 18:29 | NUR ---
PT O2 86% ON RA, PUT PT BACK ON 1LNC, O2 SAT 97%
--- NOTE | 2022-01-04 20:20 | NUR ---
IN TO GET VITALS, PT UP TO THE TOILET SBA, PT REQUESTS SOMETHING FOR PAIN, NO FURTHER NEEDS AT THIS TIME
--- NOTE | 2022-01-05 09:13 | NUR ---
RESTING IN BED, BEDSIDE REPORT WAS GIVEN BY NIGHT RN. AWAKE, ALERT, C/O SLIGHT NAUSEA, GAVE ZOFRAN WITH GOOD RESULTS, ABDOMEN PAIN 4/10, ACTIVE BS X 2-3, MITA TO BE REMOVED THIS MORNING. ENCOURAGING UP TO CHAIR FOR MEALS AND AMBULATION GOAL AT LEAST 4 TIMES TODAY. WILL SL IV AND PLACE ON RA TO CHECK SATS WHEN AMBULATING.
--- NOTE | 2022-01-05 10:16 | NUR ---
PT LAYING IN BED, ON HER L SIDE. RM DARKENED, USING HER PHONE. PT SAID SHE FEELS BETTER, SEEMED RATHER PREOCCUPIED. GAVE ENCOURAGEMENT AND BLESSING. WILL FOLLOW NEEDED
--- NOTE | 2022-01-05 10:55 | NUR ---
WENT IN TO CHECK ON PATIENT. PATIENT WAS ASLEEP. GOING BACK IN SOON TO SEE IF SHE WOULD LIKE TO GO FOR A WALK THAN TAKE A SHOWER. HAVE HER SHOWER SET UP.
--- NOTE | 2022-01-05 16:00 | NUR ---
NURSE STARTED WALKING PATIENT IN THE [place] THAN I TOOK OVER AND WALKED THE PATIENT THE REST OF THE WAY. SHE DID 1 LAP AROUND MED SURG. PATIENT SET UP IN HER CHAIR.
--- NOTE | 2022-01-05 17:08 | NUR ---
covid swab collected sent to the lab
--- NOTE | 2022-01-05 19:20 | NUR ---
REPORT RECEIVED ON PT. SHE IS CURRENTLY WITH STAFF WILLIAM FOR A WALK IN THE HALLS.
--- NOTE | 2022-01-06 00:39 | NUR ---
PT STATES SHE IS FEELING BETTER ABLE TO COPE TONIGHT. SHE IS WATCHING HER [employer] AND REQUESTED HER POPCICLES. NO OTHER NEEDS.
--- NOTE | 2022-01-06 03:40 | NUR ---
iv pump alarming. primary rn asks this rn to saline lock picc line, picc line saline locked per policy and alcohol cap in place. dressing wnl. primary rn aware. no further needs verbalized by pt. call light in reach.
--- NOTE | 2022-01-06 07:30 | NUR ---
THIS RN IN TO ROOM WITH IRON BLAIR FOR REPORT. PATIENT AWAKE AND HAS NO NAUSEA AND NO C/O PAIN AT THIS TIME. CALL LIGHT IN REACH. HERE TO TALK WITH PATIENT.
--- NOTE | 2022-01-06 07:45 | NUR ---
pT HAS MAINTAINED HER O2 SATS ON ROOM AIR THIS SHIFT. SHE IS TOLERATING A REGULAR DIET. HAS HAD A BM. VOIDING FREELY. PAIN IS WELL CONTROLLED WITH A PERCOCET. HER LUNGS ARE CLEAR. PT PLANS ON [facility]ONG HOME TODAY.
[2022-01-06] MEDS ORDERED: AUGMENTIN 500-1 EACH PO (08:57)
[2022-01-06] MEDS ORDERED: LEVOFLOXACIN500 MG PO (08:59)
[2022-01-06] MEDS ORDERED: PERCOCET 10-321 EACH PO (09:02)
--- NOTE | 2022-01-06 10:10 | NUR ---
PT READY FOR DISCHRAGE. MORNING MEDICATIONS DUE. SHYAM, PTS SUSAN RN REQUESTS THIS RN TO ASSIST WITH DISCHARGE. PT RESTING IN BED. IV INFUSION COMPLETE. PICC LINE FLUSHED AND SALINE LOCKED. PICC LINE DC'D PER PROTOCOL, GAUZE, BACETRACIN AND OCCLUSIVE DRESSING APPLIED. PT INSTRUCTED TO REMOVE OCCLUSIVE DRESSING TOMORROW, PT VERABLIZES UNDERSTANDING. MORNING MEDICAITONS GIVEN. VITAL SIGNS STABLE. PT UP IN ROOM, STEADY ON FEET, PT DRESSES SELF, NO ASSISTANC NEEDED. DISCHRAGE INSTRUCTIONS REVIEWED WITH PT AND SIGNIFICANT OTHER. PT VERBALIZES UNDERSTANDING OF INSTRUCTIONS, ACTIVITY RESTRICTIONS, MEDICATIONS, WOUND CARE AND FOLLOW UP. PT STATES HER QUESTIONS HAVE BEEN ANSWERED. PT TRANSFERES SELF TO WHEELCHAIR AND IS WHEELED FROM MED/SURG, NO ADDITIONAL REQUESTS OR CONCERNS.
--- NOTE | 2022-01-06 10:45 | NUR ---
PTS PHONE AERONAUTICAL TEST ENGINEER FOUND IN PTS ROOM WHILE ES WAS CLEANING. PHONE CALL TO PTS SIGNIFICANT OTHER, GENEVIEVE, WHO STATES HE WILL RETURN TO [employer] THE AERONAUTICAL TEST ENGINEER FOR PT. AERONAUTICAL TEST ENGINEER LABLED WITH PT STICKER AND LEFT AT ADMITTING DESK FOR [employer].
--- NOTE | 2022-01-06 14:43 | DS ---
[facility] [address] [place], [place] [address] Signed ADMISSION DATE: 12/28/2021 DISCHARGE DATE: 01/06/2022 FINAL DIAGNOSES: 1. Perforated sigmoid colon following polypectomy. 2. Aspiration pneumonitis/pneumonia. PROCEDURES: 1. Laparotomy with primary repair of sigmoid colon perforation. 2. Multiple x-rays. HISTORY OF PRESENT ILLNESS: Diony is a 61-year-old female, who came on 12/27/2021 for an outpatient colonoscopy. She had three tiny polyps removed of the sigmoid colon. Unfortunately, one of them perforated. She came back to the emergency room and was admitted late at night. I had seen her at that time. By morning, she actually was a little worse and certainly not better. We therefore decided to take her to the operating room. HOSPITAL COURSE: Diony had been admitted as above and started on IV fluids and her cefepime and Flagyl. She had some vomiting of bile. Apparently later, it appears that she has probably developed aspiration pneumonitis and pneumonia. We kept on the cefepime and Flagyl. We primarily repaired the small perforation in the sigmoid colon. Her GI function returned as expected. Her lungs were the main issue that kept her here. We eventually switched her over to Zosyn and Levaquin. Her white count was still hovering around 13, but her fever curve was completely resolved. She is now off the supplemental oxygen and she is able to walk around the hallways without dyspnea on exertion. She does smoke half a pack of cigarettes a day for many years. She does have some emphysema. She has had a previous left mastectomy for breast cancer. She had radiation therapy about 17 years ago. She has some scarring at the top of that lung. She follows along with her table tender sludge, . That has all been stable. At this point, she is tolerating her regular diet. She has had plenty of flatus and several bowel movements. The GI function really is back to baseline. She is now able to go home with her significant other from a respiratory standpoint. DISCHARGE PLANS AND MEDICATIONS: Diony is going to be discharged to home with a prescription for Augmentin 500 mg one tablet p.o. b.i.d. for seven days. Also, Levaquin 500 mg one tablet p.o. daily for seven days. We will give her Percocet 10/325 one tablet p.o. q.6 hours p.r.n. for severe postoperative pain. We will dispense 20 tablets with no refills. She already takes chronic Percocet at home along with her morphine. She is welcome to use those as Electronically Signed By: MATILDE MURILLO MD 01/06/22 1443 PATIENT NAME: DIONY AGUILERA DISCHARGE SUMMARY DATE OF : 62 REPORT #: [id number] PHYSICIAN: MATILDE MURILLO MD PCP: ALEXANDER ESPOSITO MD REPORT IS CONFIDENTIAL AND NOT TO BE RELEASED WITHOUT AUTHORIZATION [address] [address] Signed needed. She can also resume all her other chronic medications. She can supplement with Tylenol, ibuprofen and Aleve for [id number] postoperative pain. That can be purchased [id number]. She will continue her regular diet at home. She can perform her activities of daily living including walking up and down stairs and showering and bathing as usual. All the armani have been removed. She will leave the incision open to air. She should not do any heavy pushing, pulling, or lifting over about 20 pounds. I will see her back in my office in about 7 to 14 days for followup. She has expressed understanding and agrees with the above plan. Matilde Murillo MD ALB/MODL /[id number] cc: . Alexander Esposito MD Copies: ALEXANDER ESPOSITO MD ~ Electronically Signed By: MATILDE MURILLO MD 01/06/22 1443 PATIENT NAME: DIONY AGUILERA DISCHARGE SUMMARY DATE OF : 62 REPORT #: [id number] PHYSICIAN: MATILDE MURILLO MD PCP: ALEXANDER ESPOSITO MD REPORT IS CONFIDENTIAL AND NOT TO BE RELEASED WITHOUT AUTHORIZATION
== END 2022-01-06 10:35 | disposition home or self-care (01) | DRG 907 ==
LOC: ED 15:13 → MS 17:33 → CCU 17:33 → MS 12-30 13:40
PROVIDERS: ADMIT Colon & Rectal Surgery; ATTEND Colon & Rectal Surgery
PROC: 0DQN0ZZ Repair Sigmoid Colon, Open Approach (ICD-10-PCS; principal; 2021-12-29 09:45)
DX: K91.71 Accidental puncture and laceration of a digestive system organ or structure during a digestive system procedure (principal); J96.01 Acute respiratory failure with hypoxia; J69.0 Pneumonitis due to inhalation of food and vomit; J90 Pleural effusion, not elsewhere classified; Z20.822 Contact with and (suspected) exposure to COVID-19; E87.6 Hypokalemia; F39 Unspecified mood [affective] disorder; E83.42 Hypomagnesemia; E03.9 Hypothyroidism, unspecified; M19.90 Unspecified osteoarthritis, unspecified site; M81.0 Age-related osteoporosis without current pathological fracture; F17.200 Nicotine dependence, unspecified, uncomplicated; E83.39 Other disorders of phosphorus metabolism; Z90.13 Acquired absence of bilateral breasts and nipples; Z90.49 Acquired absence of other specified parts of digestive tract; Z98.890 Other specified postprocedural states; Z88.5 Allergy status to narcotic agent; Z79.899 Other long term (current) drug therapy; Z85.3 Personal history of malignant neoplasm of breast; Z92.3 Personal history of irradiation
CPT/HCPCS: 36415; 36569; 71045; 71260; 74177; 76942; 80048; 80053; 81001; 83690; 83735; 83880; 84100; 84484; 85025; 87502; 93005; 93010; 93306; 94640; 94760; 94762; 96375; 99285-25; A9270; C1751; C9113; C9803; J0131; J0692; J1100; J1170; J1200; J1650; J1885; J1940; J1956; J2001; J2405; J2543; J2550; J2704; J3010; J3475; J3480; J7030; J7060; J7121; Q9967; U0003

== ENCOUNTER 2022-02-18 11:17 | Inpatient (IN) | payer MEDICARE, OTHER ==
[~2022-02-18] VITALS: Ht 165.1 cm; Wt 60.0 kg
--- NOTE | ~2022-02-18 | DS ---
[facility] [address], [place] [address] Draft ADMISSION DATE: 02/18/2022 DISCHARGE DATE: 02/23/2022 FINAL DIAGNOSES: Small bowel obstruction. PROCEDURES: 1. CT scan of the abdomen and pelvis. 2. Small-bowel follow through. HISTORY OF PRESENT ILLNESS: Diony is a 61-year-old female, who I have known for quite a few years. She has been coming for intermittent colonoscopies. On 12/27/2021, we repeated the colonoscopy. She had three tiny 4 mm polyps in the sigmoid colon, right around 35 cm. They were easily removed with the hot biopsy forceps. One polypectomy site turned out to be on the anterior tinea coli. He perforated and I had to take her to surgery two days later to repair the periumbilical incision. There was very little in the way of abdominal swelling whatsoever. We irrigated out the abdomen and pelvis. She did quite well. Unfortunately, she had aspiration pneumonitis versus pneumonia. That actually kept her in the hospital for about 10 days. The GI function came back within about four days. She has been doing well since that time, and I have seen her back in the office. However, she woke up with a fairly sudden abrupt pain in the abdomen and had some nausea and vomiting. She came to emergency room for evaluation. In the emergency room, the CT scan was concerning for a transition point in the right pelvis. She was admitted with the above findings. HOSPITAL COURSE: Diony was admitted as above with NG tube and IV fluids. She quickly resolved her abdominal distention. She had passed a little flatus. We had corrected her electrolytes. The small-bowel follow-through showed some continued dilated small bowel, but it did go through the area of the transition in the pelvis and into the colon albeit slowly. She continued to improve following the small-bowel follow-through. She has had multiple episodes of flatus followed by multiple episodes of bowel movement. We clamped the NG tube for a day and she tolerated that well. Therefore, we removed the NG tube and gave her clear liquid diet. She has done well in that regard. She has been anxious to go home in the last couple of days. Given her progress, we are going to let her go home with her family. She lives here in [place], [place] close to the hospital. DISCHARGE MEDICATIONS: Diony will go home with no new prescriptions. She can resume her chronic medications. We asked her to stay on a full liquid diet for about three days and then just advance PATIENT NAME: DIONY AGUILERA DISCHARGE SUMMARY DATE OF : 62 REPORT #: [id number] PHYSICIAN: MATILDE MURILLO MD PCP: ALEXANDER ALVARADO MD REPORT IS CONFIDENTIAL AND NOT TO BE RELEASED WITHOUT AUTHORIZATION [facility] [address], [place] [address] Draft that as tolerated. She is aware that I will be out of town this coming week. Dr. Montero will be available in my absence. She would have to come back to the emergency room if her small bowel obstruction returns. Unfortunately, if this persists, she is headed for another laparotomy. I reviewed this with her multiple days in a row. She has expressed understanding and agrees with the above plan. She can follow up in my office as needed. She has expressed understanding, agrees with above plan. Matilde Murillo MD ALB/MODL /[id number] cc: MD Matilde Zamora MD Patient Chart Copies: ALEXANDER ALVARADO MD, ANDREW L MD ~ PATIENT NAME: DIONY AGUILERA DISCHARGE SUMMARY DATE OF : 62 REPORT #: [id number] PHYSICIAN: MATILDE MURILLO MD PCP: ALEXANDER ALVARADO MD REPORT IS CONFIDENTIAL AND NOT TO BE RELEASED WITHOUT AUTHORIZATION
[~2022-02-18 11:17] MED LIST changes: +AUGMENTIN 500-1 EACH PO; +FLUOXETINE HCL20 M1 PO; +LEVOFLOXACIN500 MG PO
--- OUTSIDE RECORDS SUMMARY | 2022-02-18 11:18 | XMS ---
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 EDeon VISIT COUNT (12 MO.) 2 OLIVIA Abrams TOTAL 2 NOTE: Visits indicate total known visits. ED/UCC VISIT TRACKING (12 MO.) 02/18/2022 11:17 [facility] TYPE: Emergency COMPLAINT: - ABD PAIN 12/28/2021 15:14 [facility] TYPE: Emergency COMPLAINT: - ABDOMINAL PAIN INPATIENT VISIT TRACKING (12 MO.) 12/28/2021 17:[address] [facility] TYPE: Medical Surgical COMPLAINT: - BOWEL PERFORATION DIAGNOSES: - Hypothyroidism, unspecified - Pneumonitis due to inhalation of food and vomit - Nicotine dependence, unspecified, uncomplicated - Nicotine dependence, unspecified, uncomplicated - Unspecified osteoarthritis, unspecified site - Personal history of irradiation - Other disorders of phosphorus metabolism - Acute respiratory failure with hypoxia - Acquired absence of other specified parts of digestive tract - Unspecified osteoarthritis, unspecified site - Accidental puncture and laceration of a digestive system organ or structure during a digestive system procedure - Other specified postprocedural states - Other disorders of phosphorus metabolism - Acute respiratory failure with hypoxia - Hypokalemia - 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 - Allergy status to narcotic agent - Acquired absence of bilateral breasts and nipples - Unspecified mood [affective] disorder - Pneumonitis due to inhalation of food and vomit - Contact with and (suspected) exposure to COVID-19 - Hypomagnesemia - Age-related osteoporosis without current pathological fracture - Age-related osteoporosis without current pathological fracture - Hypokalemia - Acquired absence of bilateral breasts and nipples - Hypothyroidism, unspecified - Personal history of malignant neoplasm of breast - Personal history of irradiation - Other specified postprocedural states - Allergy status to narcotic agent - Personal history of malignant neoplasm of breast - Other senior living (current) drug therapy - Unspecified abdominal pain - Acquired absence of other specified parts of digestive tract - Contact with and (suspected) exposure to COVID-19 - Accidental puncture and laceration of a digestive system organ or structure during a digestive system procedure - Hypomagnesemia - Unspecified mood [affective] disorder - Pleural effusion, not elsewhere classified - Pleural effusion, not elsewhere classified [id number]
--- NOTE | 2022-02-18 17:08 | NUR ---
PT TO MED-SURG VIA STRETCHER ABLE TO SELF TRANSFER TO BED. NG TO LOW INT SUCTION DRAINING GREEN COLORED FLUID. PT RATES HER PAIN AT 5/10 STATES SHE IS FINE AT 5, BUT NEEDS MEDS WHEN IT INCREASES OVER THAT. ENCOURGAED PT TO MAKE HER NEEDS KNOWN PAIN CONTROL ED PROVIDED UNDERSTANDING VERBALLIZED. ADMISSION COMPLETE FLUIDS INFUSING, ICE CHIPS TO BEDSIDE, CALL LIGHT AND NEEDED ITEMS IN REACH.
--- NOTE | 2022-02-18 17:49 | NUR ---
PT RESTING EYES CLOSED AWAKENS TO VOICE. AGREES HER PAIN IS UNDER CONTROL AND SHE IS FAIRLY COMFORTABLE. DENIES NEEDS
--- NOTE | 2022-02-18 19:05 | NUR ---
RECEIVED REPORT FROM GERMAN PERDUE, ASSUMED CARE OF PATIENT AT THIS TIME. PT CURRENTLY DENIES ANY NEEDS, RECENTLY MEDICATED WITH PAIN MED THROUGH HER IV, SPOUSE AT BEDSIDE.
--- NOTE | 2022-02-18 20:40 | NUR ---
PT ASSESSMENT COMPLETE. PATIENT WAS REPORTING SOME NUASEA AND SOME INCREASED ABDOMINAL PAIN, WISHES TO HAVE SOME MORE PAIN MED AND NUASEA MED. ADMINISTERED 12.5 MG PHENERGAN IV PER PRN ORDER AND 1 MG DILAUDID IV FOR 6/10 ABDOMINAL PAIN. PATIENT VERBALIZED UNDERSTANDING THAT SHE IS NOT TO EAT OR DRINK ANYTHING, REFRESHED HER ICE CHIPS SHE IS ALLOWED SOME FOR COMFORT. TUNRED UP THERMOSTAT PER PATIENT REQUEST. NG REMAINS PATENT TO LOW INTERMITTENT SUCTION DRAINAGE IS GREENISH BROWN COLOR. CALL LIGHT IN REACH.
--- NOTE | 2022-02-18 22:53 | NUR ---
WENT IN TO CHECK ON PATIENT SHE WAS ASLEEP EARLIER WHEN I WENT TO REASSESS AFTER HER IV PAIN MED. PT IS AWAKE, STATING HER PAIN WAS IMPROVED AND NOW IT IS BACK "NOW THAT I AM AWAKE" PATIENT MEDICATED WITH ANOTHER DOSE OF DILAUDID IV, ASKS ABOUT NASUEA MEDICATION INFORMED IT IS TOO SOON TO GIVE MORE ASKED IF SHE NEEDS TO GET UP TO VOID, STATES "NO I DON'T WANT TO, I WILL LATER WHEN I GET MORE NAUSEA MEDS" NG TUBE ASSESSED, CONTINUES AT LOW INTERMITTENT SUCTION. CALL LIGHT INREACH DENIES OTHER NEEDS.
--- NOTE | 2022-02-19 00:17 | NUR ---
SBA. TO THE BATHROOM AND BACK TO BED. PATIENT RREQUESTED FOR ANTI NAUSEA, PAIN MED AND LOZENGES. PRIMARY RN NOTIFIED. ICE CHIPS PROVIDED. NO OHTER NEEDS AT THIS TIME.
--- NOTE | 2022-02-19 00:20 | NUR ---
PER FRANKIE LÓPEZ PATIENT IS ASKING FOR "PAIN MED, NUASEA MED, AND LOZENGE" THIS RN IN ROOM INFOMRED PATIENT I WILL BRING THESE IN SOON I CAN, INFORMED HER THAT THE MEDICATIONS OR ORDERED AT CERTAIN INTERVALS AND CANNOT MEDICATE TOO SOON, SHE VERBALIZED UNDERSTANDING.
--- NOTE | 2022-02-19 01:01 | NUR ---
IN ROOM TO CHECK ON PATIENT AND GIVE HER THE REQUESTED MEDICATION. SHE IS HAVING SOME DRY HEAVING. ADMINISTERED ZOFRAN 8MG IV PER PRN ORDER. ALSO MEDICATED WITH ADDITIONAL DILAUDID, SHE SAYS "IT HELPS, BUT DOESN'T SEEM TO LAST LONG ENOUGH" ASSESSED PATENTCY OF NG TUBE CONTINUOUSLY DRAINING GREENISH BROWN FLUID, HAS SLOWED DOWN IN ACCUMULATION.
--- NOTE | 2022-02-19 01:43 | NUR ---
IN ROOM TO OBTAIN VITALS AND CHECK ON PATIENT POST MEDICATION. PATIENT APPEARS MORE RELAXED, IS NOT HOLDING STOMACH STATES NAUSEA "IS SO MUCH BETTER" NO LONGER VISIBLY DRY HEAVING. REPORTS HER PAIN IS "2" DENIES ANY OTHER NEEDS OR REQUESTS, DENIES NEEDING TO GET UP TO VOID. CALL LIGHT IN REACH.
--- NOTE | 2022-02-19 02:52 | NUR ---
IN ROOM TO CHECK ON PATIENT. SHE SAYS SHE IS FEELING A LITTLE NAUSEATED AGAIN BUT NOT DRY HEAVING AT THIS TIME, REPORTS HER PAIN IS "GOOD" AT THIS TIME. ASKS IF SHE CAN HAVE MORE PHENERGAN SHE STATES "THAT IS WHAT USUALLY HELPS" PATIENT MEDICATED WITH 12.5 MG PHENRGAN IV DILUTED AND SLOWLY PUSHED OVER 10 MINUTES. PT'S NG TUBE CONTINUES DRAINING GREENISH BROWN FLUID, REMAINS LOW INTERMITTENT SUCTION.
--- NOTE | 2022-02-19 04:31 | NUR ---
IN ROOM TO CHECK PATIENT, SHE IS LAYING TOWARD HER LEFT SIDE, WAKES UP WHEN I ENTER THE ROOM, STATES HER NAUSEA HAS IMPROVED BUT "CAN USE SOME MORE PAIN MED, IT HELPS BUT JUST DOESN'T LAST" PATIENT MEDICATED WITH DILAUDID IV FOR 6/10 PAIN, NEW BAG OF D5 LR HUNG. NG TUBE REMAINS AT LOW INTERMITTENT SUCTION, IS ACCUMULATING MORE GREEN BROWN LIQUID IN CANNISTER. DENIES NEED TO VOID.
--- NOTE | 2022-02-19 04:50 | NUR ---
PATIENT AWAKE SOMEWHAT DROWSY, PT ASSESSMENT COMPLETED. PT WAS AMBULATED WITH STANDBY ASSIST VOID 100 ML.
--- NOTE | 2022-02-19 05:28 | NUR ---
CHANGED OUT SUCTION CANNISTER TO NG SUCTION. PT ENCOURAGED TO TAKE DEEP BREATHS, HER RESPIRATIONS APPEAR MORE SHALLOW AND SHE IS DROWSY, 88% RA THEN UP TO 94% WHEN ASKED TO TAKE SOME DEEP BREATHS. REPORTS HER PAIN IS "BETTER, IT'S GOOD NOW" DENIES NAUSEA. LAB IN ROOM TO OBTAIN LABS. CALL LIGHT IN REACH.
--- NOTE | 2022-02-19 06:00 | CONS ---
[facility] [address] [place], [place] [address] Signed DATE OF CONSULTATION: 02/18/2022 CHIEF COMPLAINT: Nausea, vomiting. HISTORY OF PRESENT ILLNESS: Diony is a 61-year-old female who I have known for multiple years, mainly for colonoscopies. I helped her with a colonoscopy on 12/27/2021 for screening purposes. She had three tiny 4 mm tubular adenomatous polyps removed in her sigmoid colon with hot biopsy forceps. She perforated the polypectomy site at 35 cm right on the anterior taenia coli. I took her to surgery on 12/29/2021 for a periumbilical laparotomy and primary repair of that perforation. She did well from that standpoint except she developed aspiration pneumonia and/or pneumonitis. That actually kept her in the hospital about 10 days. She has gotten past that with the Augmentin and Levaquin. I actually saw her in followup in the office and she was doing quite well. She loves the garden and has been regaining her strength. However, she woke up this morning with epigastric abdominal pain with nausea and vomiting. She came to emergency room for evaluation. In the emergency room, her white count was up to 14,000. CT scan showed dilated loops of small bowel about [address] down in the right lower pelvis where there was a transition point. Consequently, I was asked to admit her as a general surgeon on-call. An NG tube is in place with return of bilious gastric fluid. Overall, I can see she has much more energy than she did 8 weeks ago. Her boyfriend, Kurtis, is with her today. She also told me she is continuing to pass flatus. PAST MEDICAL HISTORY: Small hiatal hernia, breast cancer, colon polyps, ear tumors, hypothyroidism, osteoarthritis, osteoporosis, kidney stones, recurrent urinary tract infections, chronic neck pain, depression, fibromyalgia, eczema. PAST SURGICAL HISTORY: Includes her bilateral mastectomies followed by breast reconstruction, cholecystectomy, multiple colonoscopies, primary repair of her sigmoid colon perforation at 35 cm, right hand surgery for arthritis and ear surgeries x17 as well as tonsillectomy, carpal tunnel release, right ureteroscopy with Dr. Arreaga and upper endoscopy in 2003 and 2009. SOCIAL HISTORY: She smokes about 1/2 pack of cigarettes a day. She does not drink. Her life long partner is Kurtis Schmid at [phone]. Dr. Aaliyah Perea is her layout inspector and Dr. Alexander Esposito is her primary care provider. She prefers the [facility]. FAMILY HISTORY: Sister and mother both had breast cancer. Electronically Signed By: MATILDE MURILLO MD 02/19/22 0600 PATIENT NAME: DIONY AGUILERA CONSULTATION DATE OF : 62 REPORT #: [id number] PHYSICIAN: MATILDE MURILLO MD PCP: ALEXANDER ESPOSITO MD REPORT IS CONFIDENTIAL AND NOT TO BE RELEASED WITHOUT AUTHORIZATION [address] [address] Signed REVIEW OF SYSTEMS: She had 10 systems reviewed and there were no new findings. ALLERGIES: IV morphine bothers her, but not delayed release morphine. MEDICATIONS: Levothyroxine 112 mcg p.o. daily, extended-release morphine, gabapentin, celecoxib, vitamin D, zinc, fluoxetine, oxycodone, Imitrex. PHYSICAL EXAMINATION: VITAL SIGNS: Her blood pressure is 122/76, heart rate 69, respiratory rate 16, temperature is 98.1. She is 94% on room air. She is 5 feet 5 inches at 133 pounds (60 kg). GENERAL: Diony is a 61-year-old female lying supine semi-recumbent in her hospital bed. She does not appear systemically ill or toxic. Her boyfriend Kurtis is in the room. Our nurse, Shalini, is with us as well. NG tube is in place with return of light green bilious fluid from the stomach. LUNGS: Clear to auscultation. HEART: Regular rate and rhythm without murmurs. ABDOMEN: Mildly distended, but soft and nontender. Her periumbilical incision is well healed. LABORATORY DATA: Her white blood cell count is 14, hemoglobin 15, neutrophils 83. BUN 9, creatinine 0.7, glucose 152. COVID is negative. Albumin is 3.9. Liver function tests are negative. Lipase is negative. RADIOGRAPHIC STUDIES: Chest x-ray shows NG tube in the stomach and her lung villegas are clear. CT scan of the abdomen and pelvis is reviewed. She has 3 cm fluid-filled small bowel down to the right lower pelvis where there is a transition point. ASSESSMENT AND PLAN: Diony is a 61-year-old female, who presents as above with what appears to be a small-bowel obstruction in the right lower pelvis. However, she claims to be passing flatus throughout the day. Nevertheless, we are going to admit her and treat her conservatively. Hopefully this will resolve in a few days. I have reviewed this with Diony and her friend, Kurtis, in detail. They have expressed understanding, agreed with above plan. Electronically Signed By: MATILDE MURILLO MD 02/19/22 0600 PATIENT NAME: DIONY AGUILERA CONSULTATION DATE OF : 62 REPORT #: [id number] PHYSICIAN: MATILDE MURILLO MD PCP: ALEXANDER ESPOSITO MD REPORT IS CONFIDENTIAL AND NOT TO BE RELEASED WITHOUT AUTHORIZATION [place] [id number] [place] [address] Signed Matilde Murillo MD [facility] /[id number] cc: MD Matilde Zamora MD Katherine Cayetano, MD Copies: ALEXANDER ESPOSITO MD, ANDREW L MD CAYETANO, KATHERINE MD ~ Electronically Signed By: MATILDE MURILLO MD 02/19/22 0600 PATIENT NAME: DIONY AGUILERA CONSULTATION DATE OF : 62 REPORT #: [id number] PHYSICIAN: MATILDE MURILLO MD PCP: ALEXANDER ESPOSITO MD REPORT IS CONFIDENTIAL AND NOT TO BE RELEASED WITHOUT AUTHORIZATION
--- NOTE | 2022-02-19 07:36 | NUR ---
PT AWAKE RESTING IN BED AT TIME OF SHIFT REPORT. C/O NAUSEA AND PAIN. MEDICATED PER ORDERS. COOL CLOTH TO FOREHEAD, ICE CHIPS AT BEDSIDE. EDUCATION PROVIDED PT AGREES TO AMBULATE THE HALLS OFTEN POSSIBLE THIS SHIFT, PREFERS TO REST EYES CLOSED AND BLINDS DOWN AT THIS TIME. SCD'S IN PLACE CALL LIGHT IN REACH.
[2022-02-19] MEDS ORDERED: NICOTINE PATCH1 EACH TD (07:57)
--- NOTE | 2022-02-19 08:09 | NUR ---
PT AGREES MEDICATIONS WERE EFFECTIVE STATES SHE "FEELS A LITTLE BIT BETTER" CONTINUES RESTING EYES CLOSED.
--- NOTE | 2022-02-19 09:52 | NUR ---
PATIENT IN BED RESTING WITH EYES CLOSED. VITALS AND I&O'S CHARTED. CALL LIGHT IN REACH. NO FURTHER NEEDS AT THIS TIME.
--- NOTE | 2022-02-19 10:24 | NUR ---
pt resting eyes closed appears relaxed and comfortable. left undisturbed call light in reach. breathing even and unlabored
--- NOTE | 2022-02-19 11:04 | NUR ---
I was able to visit and do a Case Management assessment with Diony this morning. Diony states that her care has been really good while here in the hospital. She feels like the nurses are doing "as good as they can" to ict development manager her pain. She is able to explain her recent health history and verbalizes understanding of her current plan of care. She lives at home with her fiance and states that her fiance can help her with her home care needs. She also states that she has an adult son who can also help her with care needs. She feels safe with a home discharge when her condition improves and she expresses no cocerns regarding her abiltiy to purchase food, medication, etc.
--- NOTE | 2022-02-19 11:28 | NUR ---
PT INVITED TO AMBULATE THE HALLS SHE STATES HER SON IS COMING AND SHE WILL WALK WITH HIM. SHE STILL HAS PAIN AND NAUSEA BUT FEELS IT IS UNDER CONTROL AT THIS TIME. RE-ITTERATED HOW IMPORTANT AMBULATION IS, PT AGREES.
--- NOTE | 2022-02-19 14:09 | NUR ---
PT UP AMBULATES THE GARZA SEVERAL LAPS WITH FAMILY. RETURNS TO RESTING IN BED
--- NOTE | 2022-02-19 14:42 | NUR ---
PATIENT IN BED WATCHING TV. PATIENT AMBULATED IN HALLWAY EARLIER WITH FAMILY. VITALS AND I&O'S CHARTED. CALL LIGHT IN REACH. NO FURTHER NEEDS AT THIS TIME.
--- NOTE | 2022-02-19 14:56 | NUR ---
PT CONTINUES TO HAVE NAUSEA AND PAIN THIS SHIFT. STATES THE MEDICATIONS HELP BUT THEY DON'T LAST LONG ENOUGH. PT USING ICE CHIPS CONSERVATIVELY CEPACOL LOZENGES PRN. SHE HAS AMBULATED THE GARZA AND WEARS SCD'S WHILE IN BED. NG PUTTING OUT SMALL AMOUNT OF BROWN FLUID. FAMILY X2 HAVE BEEN HERE TO VISIT.
--- NOTE | 2022-02-19 16:41 | NUR ---
PT RESTING EYES CLOSED APPEARS COMFORTABLE RELAXED, LEFT UNDISTURBED, ALL LIGHT IN REACH
--- NOTE | 2022-02-19 18:10 | NUR ---
PT REPORTS STRUGGLING WITH A HEADACHE ALL DAY, CONTINUES NAUSEA AND ABDOMINAL PAIN. TYLENOL SUPPOS, PHENERGAN, AND DILAUDID ADMINISTERED. PT RESTING EYES CLOSED NOW, APPEARS TO BE DOZING LEFT UNDISTURBED. CALL LIGHT IN REACH
--- NOTE | 2022-02-19 19:30 | NUR ---
REPORT RECEIVED ON PT. SHE HAS HAD A MIGRAINE MOST OF TODAY. SHE WAS GIVEN DILAUDID FOR PAIN. LIGHTS ARE DOWN, PT IS RESTING.
--- NOTE | 2022-02-19 21:07 | NUR ---
answered call light patient requests to void also asking about something for her migraine states she usually takes sumatriptan, states the iv pain meds arenot helping with her headache, states the headache maybe what is causing some of the nausea. pt asking for more of the iv pain med and nausea med as well. pt ambulated to restroom voided 300 ml. hooked back up to low intermittent suction scds back on. informed primary nurse Jamila of patient's needs.
--- NOTE | 2022-02-19 21:34 | NUR ---
MEDICATED PT WITH 8 MG ZOFRANIV FOR NASUEA PER PRN ORDER, 1MG DILAUDID IV PER PRN ORDER FOR "6" OUT 10 ABDOMINAL AND HEAD PAIN. PT MADE AWARE THAT DR MURILLO WILL BE CONTACTED AND IF WE CAN GIVE HER THE IMITREX WE WILL BRING IT IN.
--- NOTE | 2022-02-19 22:00 | NUR ---
PT STATED THAT SHE DOES TAKE IMITREX PO FOR HER MIGRAINES. DR MURILLO CALLED ANDHE ORDERED IMITREX SQ X1 DOSE AND TORADOL 15 MG IV X1 IF IMITREX WAS NOT EFFECTIVE.
--- NOTE | 2022-02-19 22:18 | NUR ---
PT WAS GIVEN IMITREX SQ PER ORDER FOR MIGRAINE OSMAN.
--- NOTE | 2022-02-19 22:20 | NUR ---
FEW ICE CHIPS PROVIDED.
--- NOTE | 2022-02-20 01:43 | NUR ---
PT WAS UP TO THE BATHROOM TO VOID. SHE REQUIRES ASSIST WITH IV POLE AND NGT. PT REQUESTED HELP TO CLEAN UP. SHE WASHED WITH BATH WIPES , SHOWER CAP FOR HAIR, GOWN WAS CHANGED. PT HAD NAUSEA UPON RETURN TO BED. SHE WAS MEDICATED WITH PHENERGAN. LIGHTS ARE DOWN, CALL LIGHT IN REACH.
--- NOTE | 2022-02-20 02:29 | NUR ---
NAUSEA RELIEVED WITH PHENERGAN.
--- NOTE | 2022-02-20 07:30 | NUR ---
THIS RN RECEIVED REPORT FROM IRON BLAIR. PATIENT RESTING QUIETLY ON HER LEFT SIDE, EYES CLOSED, RESPIRATIONS ARE REGULAR AND EVEN, AND CALL LIGHT IS IN REACH. PATIENT HAS NO NURSE CARE NEEDS AT THIS TIME.
--- NOTE | 2022-02-20 07:45 | NUR ---
PT FEELS BETTER THIS AM IN THAT HER MIGRAINE RESPONDED TO SQ IMITREX AND IS RELIEVED. PT IS NOT PASSING GAS. NGT DRAINED 400 MLS BROWN LIQUID. SHE HAS VOIDED. VSS. AFEBRILE.
--- NOTE | 2022-02-20 08:38 | NUR ---
PATIENT IS ON HER WAY TO RADIOLOGY FOR GI STUDY. PATIENT WAS VOMITING AND HAS BEEN GIVEN 12.5MG IV PHENERGAN PER PROTOCOL AND 1MG IV DILAUDID FOR PAIN. TRACI PATCH ALSO APPLIED TO LEFT SHOULDER. NAUSEA AND PAIN ARE CONTROLLED AT THIS TIME.
--- NOTE | 2022-02-20 10:04 | NUR ---
PATIENT IN BED RESTING AT THIS TIME. VITALS AND I&O'S CHARTED. CALL LIGHT IN REACH. NO FURTHER NEEDS AT THIS TIME.
--- NOTE | 2022-02-20 10:15 | NUR ---
PATIENT IS BACK FROM RADIOLOGY AND IS VERY NAUSEATED. 8MG OF ZOFRAN HAD BEEN GIVEN AT 0950 AFTER PATIENT'S RETURN AND THIS DID NOT IMPROVE NAUSEA. PATIENT'S NGT TO REMAINED CLAMPED UNTIL RADIOLOGY COMES BACK TO TAKE PATIENT DOWN TO FINISH THE DI TEST. THIS RN CALLED AND GOT A ONE TIME ORDER FOR AN EXTRA DOSE OF 12.5MG IV PROETHAZINE FOR NAUSEA WHICH THIS RN GAVE. SAID IF THIS DID NOT STOP THE PATIENT'S NAUSEA TO GO AHEAD AND HOOK HER BACK UP TO LIWS. PATIENT DOING A LITTLE BETTER AT THIS TIME. WILL BE BACK TO RE-EVALUATE IN AN HOUR. CALL LIGHT IS IN REACH.
--- NOTE | 2022-02-20 11:27 | NUR ---
PATIENT CALLED AND INFORMED THIS RN SHE IS STILL EXTREMELY NAUSEATED AND CAN'T STAND IT ANYMORE AND HAVING 7/10 ABD PAIN. HOOKED PATIENT BACK UP TO LIWS AND GOT 700MLS GREEN DRAINAGE BACK WHICH HELPED THE NAUSEA A LITTLE, SO NGT RECLAMPED AT THIS TIME. 1MG SIVP DILAUDID GIVEN FOR PAIN AND PATIENT SAYS SHE IS MORE COMFORTABLE NOW AND IS GOING TO TRY AND TAKE A NAP. CALL LIGHT IN REACH AND PATIENT HAS NO OTHER CARE NEEDS AT THIS TIME.
--- NOTE | 2022-02-20 13:51 | NUR ---
RN IN ROOM TO ASSESS PT PAIN - STATES SHE DOES NOT NEED PAIN COVERAGE AT THIS TIME BUT DOES REQUEST NAUSEA MEDICATION. PT UPDATED THAT NEXT NAUSEA MEDS ARE AVAILABLE AT 1 HOUR - PRIMARY RN UPDATED.
--- NOTE | 2022-02-20 14:16 | NUR ---
PT ALERT, ORIENTED AND VISITING WITH SON AT BS. PT IS PLEASANT, DOESNOT LIKE NGT. GAVE ENCOURAGEMENT AND LEFT G.POST. BLESSING EXTENDED. WILL FOLLOW
--- NOTE | 2022-02-20 14:19 | NUR ---
PATIENT UP TO BATHROOM AND BACK TO BED, SBA. VITALS AND I&O'S CHARTED. IRON RAMOS IN ROOM TO CHANGE IV FLUIDS. CALL LIGHT IN REACH. NO FURTHER NEEDS AT THIS TIME.
--- NOTE | 2022-02-20 15:04 | NUR ---
AFTERNOON ASSESSMENT COMPLETE. PATIENT PAIN IS CONTROLLED AT 4/10 AND SHE IS A LITTLE NAUSEATED, BUT NOT NEEDING MEDICATION YET. RADIOLOGY HERE TAKING PATIENT BACK TO FINISH HER GI EXAM.
--- NOTE | 2022-02-20 15:38 | NUR ---
PATIENT BACK FROM RADIOLOGY AND REMAINS NAUSEATED AND HAVING 6/10 ABD PAIN. 12.5MG PROMETHAZINE GIVEN IV PER PROTOCOL AND 1MG SIVP DILAUDED GIVEN FOR PAIN. NGT BACK TO LIWS. PATIENT DENIES ANY OTHER CARE NEEDS AT THIS TIME. CALL LIGHT IS IN REACH.
--- NOTE | 2022-02-20 16:02 | NUR ---
Spoke with pt. She cont. with ng in her nose. Denies needs at this time.
--- NOTE | 2022-02-20 16:40 | NUR ---
PATIENT'S PAIN DOWN TO 4/10 AND SHE IS COMFORTABLE AT THIS TIME, AND NAUSEA IS GONE. CALL LIGHT IS IN REACH AND PATIENT DENIES ANY CARE NEEDS AT THIS TIME.
--- NOTE | 2022-02-20 17:45 | NUR ---
PATIENT IN BED RESTING, VISITOR IN ROOM. VITALS AND I&O'S CHARTED. FRESH ICE CHIPS GIVEN. CALL LIGHT IN REACH. NO FURTHER NEEDS AT THIS TIME.
--- NOTE | 2022-02-20 18:38 | NUR ---
PATIENT IS DOING WELL AT THIS TIME. NG HAS BEEN CLAMPED SO PATIENT CAN WALK. PATIENT'S NAUSEA AND PAIN ARE CONTROLLED. PATIENT IS WALKING LAPS WITH A MALE FRIEND AROUND THE MED/SURG FLOOR. PATIENT HAS NO CARE NEEDS AT THIS TIME.
--- NOTE | 2022-02-20 19:26 | NUR ---
REPORT RECEIVED . PT IS SITTING UP IN BED. STATES HER PAIN IS WELL CONTROLLED. NO NAUSEA AT THIS TIME. CALL LIGHT IN REACH. IVF RUNNING.IV PATENT.
--- NOTE | 2022-02-20 22:25 | NUR ---
PT CALLED FOR ADDITIONAL ANTINAUSEA MEDICATION. STATED THAT THE ZOFRAN 8 MG IVP DID NOTHING. PHENERGAN 12.5 MG IV GIVEN.
--- NOTE | 2022-02-20 23:08 | NUR ---
PHENERGAN APPEAR STO BE EFFECTIVE FOR PT NAUSEA. SHE IS SRESTING QUIETLY .
--- NOTE | 2022-02-21 00:48 | NUR ---
PT IS AWAKE AND ALERT. COMFORTABLE. NO PAIN NEEDS. PT IS GIVEN ICE CHIPS. NGT DRAINING BROWN LIQUID. IV PATENT. CALL LIGHT IN REACH.
--- NOTE | 2022-02-21 01:18 | NUR ---
PT CALLED FOR PAIN MEDICATION. HER THROAT AND ABD BOTH HURT. PT WAS MEDICATED WITH DILAUDID 1 MG SLOW IVP. NO OTHER NEEDS. CALLL LIGHT IN REACH.
--- NOTE | 2022-02-21 05:27 | NUR ---
PT HAS HAD NAUSEA THAT ZOFRAN WAS INEFFECTIVE IN TREATING, PHENERGAN WAS EFFECTIVE. SHE HAS HAD THROAT AND ABD PAIN THAT DILAUDID WAS EFFECTIVE FOR. SHE HAS SLEPT OFF AND ON. HER BOWEL TONES ARE HYPO AND ACTIVE OFF AND ON. SHE HAS PASSED GAS. OTHERWISE A & O X4. VSS AFBRILE. ON ROOM AIR . LUNGS ARE CLEAR. IS INDEPENDENT TO BAHROOM ONCE NGT IS DISCONNECTED. NGT HAS DRAINED A LARGE AMOUNT OF BROWN LIQUID.
--- NOTE | 2022-02-21 05:59 | NUR ---
PT. VITALS AND I/OS CHARTED. PT. ASSISTED TO BR. ROOM TIDIED, TRASH EMPTIED. CALL LIGHT LEFT WITHIN REACH. NO OTHER IMMEDIATE NEEDS AT THIS TIME.
--- NOTE | 2022-02-21 09:18 | NUR ---
NGT TO BIJAN Gant NARE PATENT, DRAINING BROWN THICK DRAINAGE. ABD TENDER AND DISTENDED MORE ON R SIDE, FAINT BOWEL TONES. VOIDING QS SBA. IV IFNUSING RW AREA, PATGENT. NO C/O PAIN, TRACI PATCH APPLIED R BACK. COOP AND PLEASANT.
--- NOTE | 2022-02-21 09:38 | NUR ---
UP TO BR VOIDED YELLOW URINE WITH SEDIMENTS, BACK TO BED, NGT PATENT. IVF INFUSING. SBA, TOLERATED WELL
--- NOTE | 2022-02-21 10:22 | NUR ---
PT C/O PAIN AND FEELING NAUSEATED, BEING MEDICATED BY ANOTHER RN. PLEASANT AND COOP ,NGT TO LIWS, NPO, CALL LIGHT AND ORAL SPONGES AT HANDS REACH
--- NOTE | 2022-02-21 10:25 | NUR ---
THIS RN TO ROOM TO CHECK ON PT. PT REQUESTS PAIN AND NAUSEA MEDICATIONS FOR 6/10 ABOMDINAL PAIN AND 7/10 SORE THROAT. SEE MAR FOR MEDICATION GIVEN. PT DENEIS ADDITIONAL REQUESTS OR COMPLAINTS. PTS PRIMARY RN UPDATED. CALL LIGHT WITHIN REACH. BED RAILS UP.
--- NOTE | 2022-02-21 13:04 | NUR ---
Dr Teagan wilde assessing pt. pt c/o feeling nauseated, medicated with 12.5mg IV phenergan. NPO, on room air. denies c/o abd pain at this time. IVF infusing w/o problems, visiting with son.
--- NOTE | 2022-02-21 13:35 | NUR ---
PT LAYING QUIETLY IN BED-RM DARKENED. NGT STILL IN USE. PT STRUGGLING TO TRY AND STAY POSITIVE. READY FOR NGT TO DC. GAVE ENCOURAGEMENT PT REQUESTED PRAYER WILL FOLLOW
--- NOTE | 2022-02-21 15:42 | NUR ---
UP TO BR. NGT CLAMPED, WANTS A SHOWER, IVF SL FOR SHOWER, NO C/O PAIN
--- NOTE | 2022-02-21 15:57 | NUR ---
No change in plan for dc.
--- NOTE | 2022-02-21 16:14 | NUR ---
Pt on room air, clear lungs, IVF infusing w/o problems. L Nare NGT to LIWS in place, drainig thick brown colored drainage, was pink tinged on one occassion. abd tender R side, MARSHALL, stated passing gas. Has been medicated with zofran and Phenergan x1 per upset stomach/n/v, no emesis. tolerating ice chips, meds effective, was medicated per pain x1, effective. ambulating in room to BR, voiding dark yellow urine, QS.NPO does own oral care. Took a shower. tolerated well. Seen by Dr Candelraia. Pt pleasant and cooperative, uses call light. watching tv at this time
--- NOTE | 2022-02-21 17:43 | NUR ---
NGTt to LIWS, IVF infusing w/o problems, NPO does own oral care
--- NOTE | 2022-02-21 18:57 | NUR ---
Had a ashower earlier. Ambulated hallways, tolerated well
--- NOTE | 2022-02-21 19:30 | NUR ---
RECEIVED REPORT . PT IS UP AMBULATING IN THE HALLS WITH IV POLE. SHE HAS BEEN PASSING GAS, FEELS LIKE A BM IS IMMINENT.
--- NOTE | 2022-02-21 20:35 | NUR ---
PT IS UP TO THE BATHROOM TO VOID. SHE HAS PASSED A VERY SMALL HARD BROWN BM. SHE IS BACK TO BED . IV POLE PLUGGED IN, NGT RECONNECTED. PT C/O PAIN. HAS NOT HAD DILAUDID SINCE AM.
--- NOTE | 2022-02-21 21:55 | NUR ---
CALL LIGHT ANSWERED, pt UP TO VOID, NG TUBE CLAMED AND THEN SUCTION RESUMED AFTER pt VOIDED. NO ADDITIONAL NEEDS, CALL LIGHT IN REACH.
--- NOTE | 2022-02-22 04:31 | NUR ---
PT WAS UP TO THE BATHROOM TO VOID. HER URINE IS LIGHT CLEAR YELLOW. NGT IS RECONNECTED AND DRAINING BROWN FLUID. PAIN IS CONTROLLED. CALLL LIGHT IN REACH.
--- NOTE | 2022-02-22 07:15 | NUR ---
REPORT RECEIVED FROM NIGHT RN - PT RESTING ON SIDE, RR EVEN AND UNLABORED, NG IN PLACE AND SUCTIONING. CALL LIGHT AND TABLE IN REACH.
--- NOTE | 2022-02-22 08:02 | NUR ---
RN IN ROOM TO ASSIST PT TO BATHROOM. NGT CLAMPED PER MD ORDER. PRN PAIN MEDICATION ADMINISTERED FOR 5/10 PAIN, ALONG WITH THROAT LOZENGE. PT DENIES NAUSEA AT THIS TIME. IV SITE TOLERTING IVF WITHOUT DIFFICULTY. SMALL PELLET LIKE BM PRODUCED. PT BACK TO BED, DENIES FURTHER NEEDS, CALL LIGHT IN REACH.
--- NOTE | 2022-02-22 09:15 | NUR ---
Spoke with pt. Ng remains in place, but is clamped. Pt states she did pass toni and has had a sm bm. Denies needs.
--- NOTE | 2022-02-22 10:05 | NUR ---
RN IN ROOM TO ASSESS PT - PT DENIES NAUSEA WITH NGT CLAMPED THUS FAR. PAIN UNDERCONTROL WITH IV PRN. IV SITE TOLERATING FLUID WITHOUT DIFFICULTY. PT UP AMBULATING IN ROOM INDEPENDENTLY.
--- NOTE | 2022-02-22 11:02 | NUR ---
RN IN ROOM TO SWITCH IV PIGGYBACK TO KCL - PT RESTING IN BED WATCHING TV. CONTINUES TO NOT HAVE NAUSEA WITH NGT CLAMPED. DENIES FURTHER NEEDS AT THIS TIME. CALL LIGHT IN REACH.
--- NOTE | 2022-02-22 13:00 | NUR ---
RN ROUNDING ON PT - RESTING IN BED WATCHING TV. REQUESTS PRN PAIN MEDICATION FOR 6/10 PAIN. THROAT LOZENGE ALSO PROVIDED FOR SORE THROAT R/T NGT. PT DENIES NAUSEA AT THIS TIME. IV SITE TOLERATING KCL INFUSION WITHOUT DIFFICULTY. CALL LIGHT IN REACH.
--- NOTE | 2022-02-22 13:40 | NUR ---
PT RESTING IN BED ON R SIDE. NGT IN USE. PT THANKED ME FOR COMING BY, REQUESTED PRAYER AND A NAP. WILL FOLLOW
--- NOTE | 2022-02-22 14:08 | NUR ---
RN ROUNDING ON PT - VISITING WITH SO AT BEDSIDE. RATES PAIN 4/10. DENIES NEEDS AT THIS TIME. CALL LIGHT IN REACH.
--- NOTE | 2022-02-22 16:15 | NUR ---
RN IN ROOM TO ASSESS PT - PT RESTING IN BED AFTER AMBULATING IN HALLWAY, REQUESTS PAIN PRN MEDICATION - ADMINISTERED. PT STATES SHE HAS HAS SEVERAL BM'S SINCE HARD "PEBBLE" BM THIS MORNING. STATES THEY ARE NOW SOFT AND FULL IN SIZE, NOT RIBBON. PT BOWEL TONES ALSO IMPROVING. NO NAUSEA WITH NGT CLAMPED. PT DENIES FURTHER NEEDS, CALL LIGHT IN REACH.
--- NOTE | 2022-02-22 18:40 | NUR ---
RN IN ROOM TO ROUND ON PT - PT STATES PAIN IS IMPROVED, DENIES NAUSEA. PT DENIES FURTHER NEEDS AT THIS TIME. CALL LIGHT IN REACH.
--- NOTE | 2022-02-22 19:38 | NUR ---
Patient in bed w/call light within reach. Denies pain and nausea. Denies needs.
--- NOTE | 2022-02-22 22:26 | NUR ---
RECEIVED CALL FROM GENEVIEVE ASKING THAT SOMEONE CHECK ON ROOM 116. ROUNDED ON pt. NO REQUESTS AT THIS TIME. CALL LIGHT WITHIN REACH. pt STATED "I THINK HE HAS STARTING DEMENTIA, I'M JUST FINE."
--- NOTE | 2022-02-22 23:33 | NUR ---
Patient appears sleeping in bed. Call light within reach.
--- NOTE | 2022-02-23 00:40 | NUR ---
Sleeping in bed. Call light within reach.
--- NOTE | 2022-02-23 05:45 | NUR ---
Patient has not had nausea throughout shift. Has had 3 loose, brown BM's. Slight heartburn at beginning of shift effectively treated w/PRN tums. Bowel sounds remain active. NG tube remains clamped. Has continued to infuse fluids at rate of 100 through IV in right forearm. A&Ox4. Breath sounds clear bilat. Breathing even, unlabored. Has remained independent in room. Complains of throat pain r/t NG tube. Treated w/PRN throat lozenges.
--- NOTE | 2022-02-23 07:42 | NUR ---
REPORT RECEIVED FROM NIGHT RN - PT RESTING IN BED AWAKE, DENIES NEEDS AT THIS TIME. CALL LIGHT IN REACH.
--- NOTE | 2022-02-23 08:32 | NUR ---
PATIENT IN BED THIS MORNING. REFUSED ADLS AND GETTING UP AT THIS TIME. PATIENT EXPRESSED SHE WANTED A SHOWER TODAY. THIS BRAIDING MACHINE OPERATOR WILL COMPLETE THIS IN THE AFTERNOON. NO OTHER NEEDS AT THIS TIME CALL LIGHT IN REACH.
--- NOTE | 2022-02-23 09:35 | NUR ---
PT IN BED STILL HAS NO DESIRE TO GET UP AT THIS TIME. WILL APPROACH AGAIN AFTER NEXT MEAL AND FOR POSSIBLE SHOWER. CALL LIGHT WITHIN REACH.
--- NOTE | 2022-02-23 10:37 | NUR ---
RN IN ROOM TO ROUND ON PT - PT RESTING IN BED DRINKING CLEAR LIQ TRAY. PT DENIES NAUSEA, RATES PAIN DOWN TO 3/10. COUCH IN ROOM REPLACED WITH NEWLY APPOLSTERED COUCH WITH PT PERMISSION.
--- NOTE | 2022-02-23 10:46 | NUR ---
RN IN ROOM TO ASSESS PT AND ADMINISTER SCHEDULED MEDICATIONS. NGT DC'D PER ORDERS - PT TOLERATED THIS WITHOUT DIFFICULTY. CLEAR LIQUID TRAY ORDERED. BOWEL TONES ACTIVE - PT STATES BMS PRODUCED THROUGHOUT NIGHT. PRN DILAUDID PROVIDED FOR 6/10 RLQ PAIN. IV SITE TOLERATING IVF WITHOUT DIFFICULTY. PT DENIES FURTHER NEEDS, CALL LIGHT IN REACH.
--- NOTE | 2022-02-23 11:34 | NUR ---
PER MD NOTE, PATIENT TO BE DISCHARGED TODAY. NO CHANGE IN DISCHARGE PLAN AT THIS TIME.
--- NOTE | 2022-02-23 12:48 | NUR ---
RN ROUNDING ON PT - PT WISHES TO WAIT TILL AFTER LUNCH TO DC HOME TO SEE IF SHE TOLEARTES LUNCH TRAY WITHOUT DIFFICULTY.
--- NOTE | 2022-02-23 13:47 | NUR ---
PT ASLEEP IN BED WAITING FOR DISCHARGE. VITALS AND I/O'S COMPLETED. NO FURTHER NEEDS AT THIS TIME. CALL LIGHT IN REACH.
--- NOTE | 2022-02-23 20:28 | NUR ---
REPORT WAS RECIEVED WHILE PT WAS WALKING IN [place], PT STATES NO NAUSEA AT THIS TIME OR SOB. VS TAKEN ASSESSMENT COMPLETED, I/O CHARTED. ENCOURAGED SMALL FREQUANT DRINKS OF FLUID. EDUCATION GIVEN R/T HYDRATION AT HOME.
--- NOTE | 2022-02-24 00:35 | NUR ---
PT RESTING IN BED SNORING, IV FLUID INFUSING, IV WNL. CALL LIGHT WITHIN REACH, BEDSIDE TABLE WITHIN REACH. INDEPENDANT TO TOILET.
--- NOTE | 2022-02-24 05:26 | NUR ---
PT SLEEPING WITH LOUD DEEP SNORING, NO NAUSEA THIS NIGHT, MEDICATED FOR PAIN AFTER PT WAS UP TO THE BATHROOM,
--- NOTE | 2022-02-24 08:25 | NUR ---
RN IN ROOM TO ADDRESS IV ALARM. PT RESTING ASLEEP IN BED, RR EVEN AND UNLABORED. IVF REPLACED. CALL LIGHT IN REACH.
--- NOTE | 2022-02-24 10:00 | NUR ---
RN IN ROOM TO ASSESS PT AND ADMINISTER SCHEDULED MEDICATIONS. PT ASLEEP UPON ENTERING THE ROOM, WAKES EASILY WITH TOUCH. PT DENIES NAUSEA CURRENTLY - WILL WORK ON BREAKFAST TRAY SLOWLY. DENIES CURRENT NEED FOR PAIN MEDICATION. IV SITE TOLERATING IVF WITHOUT DIFFICULTY. ABD XRAY DONE EARLIER IN AM, NO RESULTS YET.
--- NOTE | 2022-02-24 12:30 | NUR ---
RN ROUNDING ON PT - UP TO BATHROOM INDEPENDENTLY IN ROOM. STATES PAIN IS CONTROLLED CURRENTLY, DENIES NAUSEA AFTER SOME OF LIQUID TRAY. DENIES FURTHER NEEDS, AWAITING ROUNDING BY .
--- NOTE | 2022-02-24 13:48 | NUR ---
RN ROUNDING IN ROOM - PT RESTING IN BED ON PHONE. PT STATES SHE ATE 50% OF HER LOW FIBER PLATE AND IS NOT HAVING INCREASED PAIN OR NAUSEA. PT STATES SHE IS COMFORTABLE GOING HOME TODAY WITH DR. CRENSHAW DOPE MAINTENANCE WORKER ROTATION.
--- NOTE | 2022-02-24 14:45 | NUR ---
PATIENT LYING IN BED, NO COMPLAINTS OF PAIN. VITALS AND I/O'S COMPLETED. CALL LIGHT WITHIN REACH.
--- NOTE | 2022-02-24 15:50 | NUR ---
RN IN ROOM TO ROUND ON PT - PT RESTING IN BED ON PHONE. PT REQUESTS PAIN MEDICATION FOR 5/10 ABD PAIN. 1 NORCO PROVIDED. PT DENIES NAUSEA AFTER EATING, PREVIOUSLY AMBULATING IN HALLWAY. PT STATES SHE DID FEEL FLUSH AFTER EATING BUT IS UNSURE OF ETIOLOGY. CALL LIGHT IN REACH.
--- NOTE | 2022-02-24 19:33 | NUR ---
Patient sitting in chair w/sig other in room. Denies needs at this time. Is dressed and ready for discharge.
== END 2022-02-24 19:45 | disposition home or self-care (01) | DRG 390 ==
LOC: ED 11:17 → MS 15:47
PROVIDERS: ADMIT Colon & Rectal Surgery; ATTEND Colon & Rectal Surgery
DX: K56.600 Partial intestinal obstruction, unspecified as to cause (principal); E87.6 Hypokalemia; E83.42 Hypomagnesemia; Z20.822 Contact with and (suspected) exposure to COVID-19; K64.0 First degree hemorrhoids; K64.4 Residual hemorrhoidal skin tags; E03.9 Hypothyroidism, unspecified; M81.0 Age-related osteoporosis without current pathological fracture; M13.841 Other specified arthritis, right hand; F32.A Depression, unspecified; G89.4 Chronic pain syndrome; M54.2 Cervicalgia; L30.9 Dermatitis, unspecified; F41.9 Anxiety disorder, unspecified; M79.7 Fibromyalgia; N20.0 Calculus of kidney; F17.210 Nicotine dependence, cigarettes, uncomplicated; Z86.010 Personal history of colon polyps; Z87.440 Personal history of urinary (tract) infections; Z98.890 Other specified postprocedural states; Z85.3 Personal history of malignant neoplasm of breast; Z90.13 Acquired absence of bilateral breasts and nipples; Z90.49 Acquired absence of other specified parts of digestive tract; Z90.89 Acquired absence of other organs; Z88.6 Allergy status to analgesic agent; Z79.899 Other long term (current) drug therapy
CPT/HCPCS: 36415; 71045; 74018; 74019; 74177; 74250; 80048; 80053; 83690; 83735; 84100; 85025; 87502; A9270; C9113; C9803; J1170; J1650; J2405; J2550; J3030; J3475; J3480; J7060; J7121; Q9967; U0003

== ENCOUNTER 2022-11-06 09:07 | Day surgery (SDC) | payer MEDICARE, OTHER ==
[2022-10-30 11:34] VITALS: BP 106/66
[~2022-11-06] VITALS: Ht 165.1 cm; Wt 61.8 kg
[~2022-11-06 09:07] MED LIST changes: +NICOTINE PATCH1 EACH TD
[2022-11-06 09:26] VITALS: BP 135/64
--- NOTE | 2022-11-06 11:26 | NUR ---
11/06/22 1126 Sheets,Maria R 1108 PT ARRIVED TO PACU ON 6L VIA MASK, PT WAKES EASILY AND FALLS RIGHT BACK TO SLEEP. RESP EVEN AND UNLABORED. VSS. 1125 PT AWAKE AND DENIES PAIN AND NAUSEA. VSS. PT READY FOR TRANSFER.
[2022-11-06 11:34] VITALS: BP 100/58
--- NOTE | 2022-11-06 12:06 | NUR ---
LE 1135-PATIENT BACK TO ROOM FROM PACU ON . RECEIVED REPORT FROM CAMILLA PERDUE, PATIENT IS AWAKE. RESP EVEN AND UNLABORED. DENIES PAIN AND NAUSEA. COTTON BALL IN RIGHT EAR WITH NO DRAINAGE NOTED. PROVIDED PATIENT WITH WATER AND CRACKERS. CALL LIGHT WITH IN REACH.
--- NOTE | 2022-11-06 12:09 | NUR ---
1200-CHECKED ON PATEINT AND DOING WELL. NO OTHER NEEDS AT THIS TIME.
[2022-11-06 12:33] VITALS: BP 105/47
--- NOTE | 2022-11-06 12:47 | NUR ---
LE 1232-PATIENT SITTING UP IN BED DRESSED. RESP EVEN AND UNLARBORED. DENIES PAIN AND NAUSEA. COTTON BALL IN PLACE AND NO DRAINAGE NOTED. LE 1235-PROVIDED PATIENT WITH DISCHARGE INSTRUCTIONS. ALL QUESTIONS ANSWERED. WHEELCHAIR RIDE PROVIDED TO FRONT OF HOSPITAL WHERE HER RIDE WAS WAITING.
--- NOTE | 2022-11-13 10:12 | OR ---
[facility] [address] [place], [place] [address] Signed DATE OF OPERATION: 11/06/2022 SURGEON: Joe Cortez MD PREOPERATIVE DIAGNOSIS: Conductive hearing loss, right ear. POSTOPERATIVE DIAGNOSIS: Cholesteatoma, right ear. ANESTHESIA: General LMA; KILN TRANSFER OPERATOR, Gunner. PROCEDURE: Exam of the right ear under anesthesia, cleaning of attic cholesteatoma and placement of ventilation tube. PREOPERATIVE HISTORY: Diony is a 61-year-old young lady with a long history of right ear problems. She has had multiple operations for cholesteatoma, none for 10-15 years. She has evidence of scarred eardrum, possible cholesteatoma, middle ear effusion, conductive hearing loss, and she was taken to the operating room for the above-mentioned procedures. PROCEDURE AND FINDINGS: After informed consent, the patient was taken to the operating room, placed in supine position where general LMA anesthesia was induced. The patient and procedure were verified. The right ear was examined with the operating microscope. The eardrum was scarred. The attic was severely retracted with squamous debris appeared to have shallow mastoid cavity filled with squamous debris. This was all cleaned out with suctioning. There was some granulation tissue present. An anterior inferior radial myringotomy was made. There was a very retracted middle ear space with hypertrophic mucosa, but a López tube was placed without any difficulty. Cipro ophthalmic drops applied to the ear canal, cotton ball the meatus. The patient tolerated the procedure well, was awakened, transported to recovery room in good condition. No complications. BLOOD LOSS: Minimal. SPECIMEN: None. Electronically Signed By: JOE CORTEZ MD 11/13/22 1012 PATIENT NAME: DIONY AGUILERA OPERATIVE REPORT DATE OF : 62 REPORT #: [id number] PHYSICIAN: JOE CORTEZ MD PCP: ALEXANDER ALVARADO MD REPORT IS CONFIDENTIAL AND NOT TO BE RELEASED WITHOUT AUTHORIZATION [address] [place], [place] [address] Signed DRAINS: None. Joe Cortez MD GC/NELLIE /[id number] Copies: ~ Electronically Signed By: JOE CORTEZ MD 11/13/22 1012 PATIENT NAME: DIONY AGUILERA OPERATIVE REPORT DATE OF : 62 REPORT #: [id number] PHYSICIAN: JOE CORTEZ MD PCP: ALEXANDER ALVARADO MD REPORT IS CONFIDENTIAL AND NOT TO BE RELEASED WITHOUT AUTHORIZATION
== END 2022-11-06 12:35 | disposition home or self-care (01) ==
LOC: OPS 09:07 → DS 09:07 → OPS 10:30 → DS 10:30 → OPS 12:35
PROVIDERS: ATTEND Otolaryngology
PROC: 099500Z Drainage of Right Middle Ear with Drainage Device, Open Approach (ICD-10-PCS; principal; 2022-11-06 10:30)
DX: H71.91 Unspecified cholesteatoma, right ear (principal); H90.2 Conductive hearing loss, unspecified
CPT/HCPCS: 00126; J2001; J2405; J2704; J3010; J7121